=== PATIENT | male | born 1940 | race Caucasian/White ===

== ENCOUNTER 2016-04-23 10:43 | Observation (INO) | payer OTHER ==
[~2016-04-23] VITALS: Ht 170.2 cm; Wt 78.3 kg
[~2016-04-23 10:43] MED LIST: ASPEC81 PO; ATV5 PO; IMTUNK PO; MULT-506 PO; MXRAIN INH; OMEG10007 PO; PRLSR20 PO; TETR250C3 PO; [UNRECOGNIZED DRUG - REMARK] PO
[2016-04-23] MEDS ORDERED: KETOROLAC TROMETHAMINE 30 MG/ML VIAL IV STA (10:56)
[2016-04-23] MEDS ORDERED: ACETAMINOPHEN 500 MG TAB PO STA (10:56)
[2016-04-23] MEDS ORDERED: SODIUM CHLORIDE 0.9% 1000ML 500 ML IV STA (10:56)
[2016-04-23] MEDS ORDERED: DiphenhydrAMINE HCL 50 MG/ML VIAL IV STA (10:56)
[2016-04-23] MEDS ORDERED: PROCHLORPERAZINE 5 MG/ML 2 ML VIAL IV STA (10:56)
[2016-04-23 11:21] LABS: BASO % 0.4 %; BASO ABS # 0.03 K/uL (0-0.2); COMPLETE YES; EOS % 2.9 %; HEMATOCRIT 43.3 % (42-52); IG% 0.5 %; LYMPH % 27.5 %; LYMPH ABS # 2.17 K/uL (1.2-3.4); MEAN CELL VOLUME 87.3 fL (80-100); MEAN CORPUSCULAR HEMOGLOBIN 30.8 pg (25-34); MEAN CORPUSCULAR HGB CONC 35.3 g/dl (32-36); MEAN PLATELET VOLUME 10.3 fL (7.4-10.4); MONO % 4.2 %; NEUT % 64.5 %; PLATELET COUNT 266 K/uL (130-400); RED BLOOD COUNT 4.96 M/uL (4.7-6.1)
[2016-04-23 11:29] LABS: PROTHROMBIN TIME (PATIENT) 11.2 SECONDS (9.0-12.0)
[2016-04-23] MEDS ORDERED: GLC/500 PO (11:35)
[2016-04-23] MEDS ORDERED: LISI20TA3 PO (11:35)
[2016-04-23] MEDS ORDERED: METO25TA3 PO (11:35)
[2016-04-23 11:37] LABS: BUN/CREATININE RATIO 18.7 (10-20); CALCIUM 8.9 mg/dl (8.5-10.1); CREATININE 1.2 mg/dl (0.60-1.40)
[2016-04-23 11:42] LABS: CKMB/CK RATIO 4.3 (0-3.0)
--- NOTE | 2016-04-23 11:56 | DIAGNOSTIC IMAGING REPORT ---
HEAD CT NONCONTRAST CT DOSE: 558.98 mGy.cm HISTORY: Difficulty speaking. Stroke TECHNIQUE: Multiaxial CT images of the head were performed without the use of intravenous contrast. Automated exposure control was utilized for this study. Comparison: None. Findings: The paranasal sinuses and mastoid air cells are clear. The calvarium and skull base are intact. The ventricles and sulci are within normal limits. There is no mass, hematoma, midline shift, or acute infarct. Impression: No acute intracranial abnormality. Electronically signed by: Marcial Soto M.D. 04/23/2016 11:54 AM Dictated Date/Time: 04/23/2016 11:50 AM
[2016-04-23 12:10] VITALS: O2SAT 98; Ht 170.2 cm; Wt 78.3 kg
--- NOTE | 2016-04-23 12:41 | EMERGENCY ROOM VISIT NOTE ---
History Report prepared by Master: Dominique Mayberry Under the Supervision of: Dr. Dima Rayn M.D. First contact with patient: 10:54 Chief Complaint: STROKE SYMPTOMS Stated Complaint: MIGRAINE, UNABLE TO SPEAK History of Present Illness The patient is a 76 year old male who presents to the Emergency Room with complaints of constant stroke-like symptoms since he woke up this morning about 3 hours ago. He has a history of migraine headaches and woke up with a left- sided headache. He took Imitrex and went back to sleep. When he woke up again he was still not feeling well. He still had a headache and was experiencing confusion, weakness, and difficulty speaking. The patient rates his pain as a 2/ 10. He states that this headache feels different than his typical migraine headaches. He is not on any blood thinners. He felt fine last night before going to sleep. Source of History: patient Onset: TRANSCRIPTION Position: other (global) Symptom Intensity: 2/10 Quality: other (stroke-like) Timing: constant Associated Symptoms: + headache, + weakness Note: Pt notes confusion and difficulty speaking. Review of Systems See HPI for pertinent positives & negatives. A total of 10 systems reviewed and were otherwise negative. Past Medical & Surgical Medical Problems: (1) Asthma (2) Diabetes mellitus type 2, controlled, without complications (3) Esophageal reflux (4) Tietze's disease Family History Non-pertinent due to advanced age. Social History Smoking Status: Unknown if Ever Smoked Marital Status: Housing Status: lives with significant other Occupation Status: retired Current/Historical Medications Scheduled Aspirin Enteric Coated (Ecotrin Or Generic *), 81 MG PO DAILY Fish Oil ([place]-3), 1 CAP PO DAILY Lisinopril (Prinivil), 20 MG PO DAILY Lorazepam (Ativan *), 0.5 MG PO Q6HR PRN Metformin Hcl (Glucophage), 500 MG PO BID Multivitamin (Multivitamin), 1 TAB PO DAILY Omeprazole (Prilosec Otc *), 40 MG PO DAILY Sumatriptan Succinate (Imitrex Unknown Dose), 1 TAB PO PRN Miscellaneous Medications Metoprolol Succ (Toprol Xl) (Toprol-Xl), 12.5 MG PO Allergies Coded Allergies: Acetaminophen (Verified Allergy, Unknown, HIVES?, 04/23/16) Oxycodone (Verified Allergy, Unknown, HIVES?, 04/23/16) Penicillins (Verified Allergy, Unknown, 04/23/16) Atropine (Verified Adverse Reaction, Intermediate, PROSTATE SWELLED, ) Physical Exam Vital Signs Date Time Temp Pulse Resp B/P Pulse Ox O2 Delivery O2 Flow Rate FiO2 04/23/16 11:59 137/75 04/23/16 11:51 131/69 04/23/16 11:19 145/70 04/23/16 11:08 74 04/23/16 11:07 97 Room Air 04/23/16 10:55 144/80 04/23/16 10:48 36.4 78 18 153/72 97 Physical Exam CONSTITUTIONAL: The patient is in mild distress. HEENT: No icterus, moist mucous membranes NECK: No meningismus, trachea is midline. CARDIOVASCULAR: Regular rate, normal perfusion RESPIRATORY: Unlabored breathing. Clear to auscultation. GASTROINTESTINAL: Non-tender GENITOURINARY: No flank tenderness MUSCULOSKELETAL: Full range of motion NEUROLOGIC: No acute gross focal deficits. Expressive aphasia. PSYCHIATRIC: Normal affect SKIN: Normal for ethnicity. Medical Decision & Procedures ER Provider Diagnostic Interpretation: Radiology results as stated below per my review and radiologist interpretation. HEAD CT NONCONTRAST CT DOSE: 558.98 mGy.cm HISTORY: Difficulty speaking. Stroke TECHNIQUE: Multiaxial CT images of the head were performed without the use of intravenous contrast. Automated exposure control was utilized for this study. Comparison: None. Findings: The paranasal sinuses and mastoid air cells are clear. The calvarium and skull base are intact. The ventricles and sulci are within normal limits. There is no mass, hematoma, midline shift, or acute infarct. Impression: No acute intracranial abnormality. Electronically signed by: Marcial Soto M.D. 04/23/2016 11:54 AM Dictated Date/Time: 04/23/2016 11:50 AM Laboratory Results 04/23/16 11:04 Red Blood Count 4.96, Mean Corpuscular Volume 87.3, Mean Corpuscular Hemoglobin 30.8, Mean Corpuscular Hemoglobin Concent 35.3, Mean Platelet Volume 10.3, Neutrophils (%) (Auto) 64.5, Lymphocytes (%) (Auto) 27.5, Monocytes (%) (Auto) 4.2, Eosinophils (%) (Auto) 2.9, Basophils (%) (Auto) 0.4, Neutrophils # (Auto) 5.10, Lymphocytes # (Auto) 2.17, Monocytes # (Auto) 0.33, Eosinophils # (Auto) 0.23, Basophils # (Auto) 0.03 04/23/16 11:04 Test 04/23/16 11:04 04/23/16 11:11 04/23/16 11:14 04/23/16 12:30 White Blood Count 7.90 K/uL (4.8-10.8) Red Blood Count 4.96 M/uL (4.7-6.1) Hemoglobin 15.3 g/dL (14.0-18.0) Hematocrit 43.3 % (42-52) Mean Corpuscular Volume 87.3 fL (80-100) Mean Corpuscular Hemoglobin 30.8 pg (25-34) Mean Corpuscular Hemoglobin Concent 35.3 g/dl (32-36) Platelet Count 266 K/uL (130-400) Mean Platelet Volume 10.3 fL (7.4-10.4) Neutrophils (%) (Auto) 64.5 % Lymphocytes (%) (Auto) 27.5 % Monocytes (%) (Auto) 4.2 % Eosinophils (%) (Auto) 2.9 % Basophils (%) (Auto) 0.4 % Neutrophils # (Auto) 5.10 K/uL (1.4-6.5) Lymphocytes # (Auto) 2.17 K/uL (1.2-3.4) Monocytes # (Auto) 0.33 K/uL (0.11-0.59) Eosinophils # (Auto) 0.23 K/uL (0-0.5) Basophils # (Auto) 0.03 K/uL (0-0.2) RDW Standard Deviation 37.6 fL (36.4-46.3) RDW Coefficient of Variation 11.9 % (11.5-14.5) Immature Granulocyte % (Auto) 0.5 % Immature Granulocyte # (Auto) 0.04 K/uL (0.00-0.02) Prothrombin Time 11.2 SECONDS (9.0-12.0) Prothromb Time International Ratio 1.0 (0.9-1.1) Activated Partial Thromboplast Time 25.7 SECONDS (21.0-31.0) Partial Thromboplastin Ratio 1.0 Anion Gap 6.0 mmol/L (3-11) Est Creatinine Clear Calc Drug Dose 48.2 ml/min Estimated GFR () 67.2 Estimated GFR (Non- 58.0 BUN/Creatinine Ratio 18.7 (10-20) Calcium Level 8.9 mg/dl (8.5-10.1) Total Creatine Kinase 37 U/L (39-308) Creatine Kinase MB 1.6 ng/ml (0.5-3.6) Creatine Kinase MB Ratio 4.3 (0-3.0) Troponin I 0.017 ng/ml (0-0.045) Bedside Glucose 182 mg/dl (70-99) Bedside Prothrombin Time INR 1.0 (0.9-1.1) Labs reviewed by ED physician. Medications Administered Medications (Trade) Dose Ordered Sig/Vanessa Route Start Time Stop Time Status Last Admin Dose Admin Prochlorperazine Edisylate (Compazine Inj) 10 mg NOW STAT IV 04/23/16 10:56 04/23/16 10:57 DC 04/23/16 11:17 10 MG Diphenhydramine HCl (Benadryl Inj) 25 mg NOW STAT IV 04/23/16 10:56 04/23/16 10:57 DC 04/23/16 11:18 25 MG Acetaminophen 1000 mg 1,000 mg NOW STAT PO 04/23/16 10:56 04/23/16 10:57 DC 04/23/16 11:18 1,000 MG Sodium Chloride (Nss 1000ml) 500 ml @ 0 mls/hr Q0M STAT IV 04/23/16 10:56 04/23/16 10:57 DC 04/23/16 11:18 999 MLS/HR Ketorolac Tromethamine (Toradol Inj) 15 mg NOW STAT IV 04/23/16 10:56 04/23/16 10:57 DC 04/23/16 11:17 15 MG ECG Indication: altered mental status Rate (beats per minute): 72 Rhythm: sinus rhythm Findings: PVC, other (normal axis) ED Course 1054: Past medical records reviewed. The patient was evaluated in room C10. A complete history and physical examination was performed. 1055: NSS 1000 ml @ 50 mls/hr IV 1056: Toradol 15 mg IV, NSS 500 ml wide open IV, Tylenol tab 1000 mg PO, Benadryl 25 mg IV, Compazine 10 mg IV 1156: I spoke with Alka Mcdaniel PA-C. We discussed the patients results and treatment plan. The patient will be evaluated by the [facility] for further management. 1201: I reassessed the patient at this time. He is resting comfortably. I discussed the results and treatment plan with the patient. I answered all pertaining questions that he had. He expressed understanding and verbalized agreement. Medical Decision Differential diagnoses includes stroke, complex migraine, TIA, tumor. 76-year-old with history of migraines presents into the emergency room with atypical headache as well as expressive aphasia this morning after going to sleep in his normal state of health last night. He took his Imitrex but did not experience any relief. On my examination at 10:55 AM patient has no focal deficits but does have a mild expressive aphasia. Stroke protocol initiated patient really brought to CT scan. I personally read CT results which were negative for bleed and admission arranged with hospital service for possibility of TIA. Fortunately, patient's expressive aphasia had resolved completely on my reexamination after administration of Benadryl, Compazine and Toradol. He and are in agreement with plan for observation at this time no further concerns. Consults Time Called: 1154 Consulting Physician: Alka Mcdaniel PA-C Returned Call: 1156 I spoke with Alka Mcdaniel PA-C. We discussed the patients results and treatment plan. The patient will be evaluated by the [facility] for further management. Impression Primary Impression: Expressive aphasia Additional Impression: complex migraine vs. TIA Scribe Attestation The scribe's documentation has been prepared under my direction and personally reviewed by me in its entirety. I confirm that the note above accurately reflects all work, treatment, procedures, and medical decision making performed by me. Departure Information Dispostion Being Evaluated By Hospitalist Referrals London Odell M.D. (PCP) Patient Instructions A Signature Page, My [facility]
[2016-04-23] MEDS ORDERED: NITROGLYCERIN 0.4 MG SL PER TAB CHARGE SL PRN (13:00)
[2016-04-23] MEDS ORDERED: DEXTROSE 50% 50 ML SYR IV PRN (13:00)
[2016-04-23] MEDS ORDERED: GLUCAGON FOR INJ 1 MG VIAL SQ PRN (13:00)
[2016-04-23] MEDS ORDERED: PHARMACIST DISCHARGE MED REC CONSULT PRN (13:00)
[2016-04-23] MEDS: SODIUM CHLORIDE 0.9% 1000ML 1,000 ML IV SCH (13:00)
[2016-04-23] MEDS ORDERED: ONDANSETRON INJ 2 MG/ML 2 ML VIAL IV PRN (13:00)
[2016-04-23] MEDS ORDERED: GLUCOSE 40% GEL 15 GM TUBE PO PRN (13:00)
[2016-04-23] MEDS ORDERED: GLUCOSE 10 TABS/TUBE PO PRN (13:00)
[2016-04-23 13:01] LABS: BENZODIAZEPINE, URINE NEG (NEG); COCAINE,URINE NEG (NEG); PHENCYCLIDINE, URINE NEG (NEG)
[2016-04-23] MEDS ORDERED: CINN1CAP2 PO (13:06)
[2016-04-23] MEDS ORDERED: SIMV10TA5 PO (13:06)
[2016-04-23] MEDS ORDERED: FLVHFA110 INH (13:06)
[2016-04-23] MEDS ORDERED: SUMA50TA15 PO (13:06)
[2016-04-23] MEDS ORDERED: LISI20TA55 PO (13:06)
[2016-04-23] MEDS ORDERED: LORAZEPAM 0.5 MG TAB PO PRN (13:15)
[2016-04-23] MEDS ORDERED: METOPROLOL SUCC 25MG EXT REL TAB PO PRN (13:15)
[2016-04-23] MEDS ORDERED: FLUTICASONE HFA 110MCG INHALER INH PRN (13:15)
[2016-04-23] MEDS ORDERED: SUMATRIPTAN SUCCINATE 50 MG TAB PO PRN (13:15)
[2016-04-23] MEDS ORDERED: GADAVIST IV PRN (13:45)
[2016-04-23 14:00] VITALS: O2SAT 99
--- NOTE | 2016-04-23 14:52 | DIAGNOSTIC IMAGING REPORT ---
Brain MRA HISTORY: Expressive aphasia. Stroke - Attention to [place] TECHNIQUE: 3-D [id number] MRA of the brain was performed without contrast. COMPARISON STUDY: None. FINDINGS: Visualized intracranial internal carotid arteries, distal vertebral arteries, and basilar artery are widely patent. There is no significant stenosis, occlusion, or aneurysm seen within the bilateral ACAs, MCAs, or efficiency miner blasting. IMPRESSION: No significant stenosis, occlusion, or aneurysm within the [place]. Electronically signed by: Marcial Soto M.D. 04/23/2016 2:51 PM Dictated Date/Time: 04/23/2016 2:47 PM
[2016-04-23] MEDS ORDERED: IV FLUIDS COMPLETED PRN (15:00)
--- NOTE | 2016-04-23 15:07 | DIAGNOSTIC IMAGING REPORT ---
BILATERAL CAROTID DOPPLER STUDY HISTORY: Expressive aphasia. r/o stenosis COMPARISON: None. TECHNIQUE: Real-time, grayscale, and color Doppler sonography of the carotid arteries was performed. Imaging reviewed in the transverse and longitudinal planes. All measurements were calculated based on NASCET criteria. FINDINGS: Antegrade flow is seen in the bilateral vertebral arteries. The brachial pressures are hemodynamically similar. Mild calcified plaque within the bilateral carotid bifurcations. The peak systolic velocity within the right ICA is 90 cm/s.. The right systolic ratio is 1.0. The peak systolic velocity within the left ICA is 62 cm/s. The left systolic ratio is 0.5. IMPRESSION: No hemodynamically significant stenosis seen within the carotid arteries. Electronically signed by: Marcial Soto M.D. 04/23/2016 3:05 PM Dictated Date/Time: 04/23/2016 3:03 PM
--- NOTE | 2016-04-23 15:12 | DIAGNOSTIC IMAGING REPORT ---
Brain MRI WITH AND WITHOUT CONTRAST HISTORY: expressive aphasia TECHNIQUE: Multiplanar multisequence MRI of the brain was performed both before and after the intravenous administration of contrast. COMPARISON STUDY: Head CT 04/23/2016. FINDINGS: There are no areas of restricted diffusion to suggest acute infarction. The midline structures are intact. Minimal mucosal thickening within the paranasal sinuses and a few partially opacified mastoid air cells. A few scattered punctate foci of T2 hyperintensity seen within the periventricular and subcortical white matter. These are nonspecific but favor mild microvascular ischemic change. The ventricles and sulci are within normal limits for age. There is no mass, hematoma, midline shift. The major vascular flow-voids at the skull base are well maintained. Postcontrast sequences show no areas of abnormal enhancement. IMPRESSION: No acute intracranial abnormality. Electronically signed by: Marcial Soto M.D. 04/23/2016 3:11 PM Dictated Date/Time: 04/23/2016 3:05 PM
[2016-04-23] MEDS: INSULIN ASPART 100 UNITS/ML 3 ML PEN SC SCH ×2 (17:08→20:57)
[2016-04-23 17:20] VITALS: BP 156/68; PULSE 64; TEMP 36.4; O2SAT 98
--- NOTE | 2016-04-23 19:38 | History and Physical ---
History & Physical Date & Time of Service: Apr 23, 2016 at 16:47 Chief Complaint: Stroke-Like Symptoms Primary Care Physician: London Odell M.D. History of Present Illness Source: patient This is a 76 y/o male with PMHx of DM 2, Migraines, HTN, Dyslipidemia and other problems as outlined below who presents to the ED c/o difficulty speaking that began this morning. Pt reports that he woke up around 0700 feeling his normal self. Around 0800 he developed a L sided migraine with aura and took an Imitrex. He then developed confusion and difficulty "finding the right words". Pt has +FmHx of strokes but he denies any personal history. Pt denies fever/ chills, visual changes, diaphoresis, chest pain, palpitations, SOB, wheezing, abd pain, N/V, bowel or bladder issues, LE edema ,calf pain, lightheadedness/ dizziness, unilateral weakness, difficulty ambulating, difficulty swallowing or facial droop. In the ED, vitals are stable. Head CT is negative. Pt has some persistent expressive aphasia at time however he feels that is has improved from this morning. He will be admitted for further evaluation and treatment. Past Medical/Surgical History Medical Problems: (1) Asthma Status: Chronic (2) Diabetes mellitus type 2, controlled, without complications Status: Chronic (3) Dyslipidemia Status: Chronic (4) Esophageal reflux Status: Chronic (5) GERD (gastroesophageal reflux disease) Status: Chronic (6) HTN (hypertension) Status: Chronic (7) Migraines Status: Chronic (8) Tietze's disease Status: Chronic Surgical Problems: (1) H/O arthroscopy of left knee Status: Resolved (2) History of partial colectomy Status: Resolved Social History Smoking Status: Never Smoker Alcohol Use: none Drug Use: none Marital Status: Housing status: lives with family Occupational Status: retired Immunizations History of Influenza Vaccine: Yes History of Tetanus Vaccine?: Yes History of Pneumococcal: Yes History of Hepatitis B Vaccine: No Multi-Drug Resistant Organisms History of MDRO: No Allergies Coded Allergies: Acetaminophen (Verified Allergy, Unknown, HIVES?, 04/23/16) Oxycodone (Verified Allergy, Unknown, HIVES?, 04/23/16) Penicillins (Verified Allergy, Unknown, 04/23/16) Atropine (Verified Adverse Reaction, Intermediate, PROSTATE SWELLED, ) Home Medications Scheduled Aspirin Enteric Coated (Ecotrin Or Generic *), 81 MG PO DAILY Cinnamon (Cinnamon), 500 MG PO DAILY Fish Oil ([place]-3), 1 CAP PO DAILY Lisinopril/Hctz (Prinzide 20-25MG), 1 TAB PO DAILY Lorazepam (Ativan *), 0.5 MG PO Q6HR PRN Metformin Hcl (Glucophage), 500 MG PO BID Multivitamin (Multivitamin), 1 TAB PO DAILY Omeprazole (Prilosec Otc *), 40 MG PO DAILY Simvastatin (Zocor), 10 MG PO QPM Scheduled PRN Fluticasone Propionate (Flovent Hfa), 2 PUFFS INH BID PRN for Wheezing Sumatriptan Succinate (Imitrex), 50 MG PO PRN PRN for Migraine Miscellaneous Medications Metoprolol Succ (Toprol Xl) (Toprol-Xl), 12.5 MG PO Review of Systems Constitutional: No chills, No fatigue, No fever, No sweats, No weakness Eyes: No diplopia, No worsening of vision ENT: + hearing loss (hearing aids) Respiratory: No cough, No shortness of breath Cardiovascular: No chest pain, No claudication, No edema, No palpitations Abdomen: No GI bleeding, No constipation, No diarrhea, No nausea, No pain, No vomiting Musculoskeletal: No calf pain, No swelling Genitourinary - Male: No dysuria Neurologic: + problem reported (headache and expressive aphasia), No weakness Psychiatric: No depression symptoms Endocrine: No fatigue Hematologic / Lymphatic: No abnormal bleeding/bruising Integumentary: No new/changing skin lesions Physical Exam Vital Signs Date Time Temp Pulse Resp B/P Pulse Ox O2 Delivery O2 Flow Rate FiO2 04/23/16 14:00 67 20 165/78 99 Room Air 04/23/16 12:52 70 20 137/75 98 Room Air 04/23/16 12:10 98 Room Air 04/23/16 11:59 137/75 04/23/16 11:51 131/69 04/23/16 11:19 145/70 04/23/16 11:08 74 04/23/16 11:07 97 Room Air 04/23/16 10:55 144/80 04/23/16 10:48 36.4 78 18 153/72 97 General Appearance: WD/WN, no apparent distress, + pertinent finding (Pt is sitting up in bed with and daughter at bedside) Head: normocephalic, atraumatic Eyes: normal inspection, PERRL, EOMI ENT: hearing grossly normal Neck: supple Respiratory/Chest: chest non-tender, lungs clear, normal breath sounds, no respiratory distress Cardiovascular: regular rate, rhythm, no edema, no murmur Abdomen/GI: normal bowel sounds, non tender, soft Back: normal inspection Extremities/Musculoskelatal: normal inspection, no calf tenderness, no pedal edema Neurologic/Psych: battery hand II-XII nml as tested, no motor/sensory deficits, alert, normal mood/affect, oriented x 3 Skin: normal color, warm/dry Diagnostics Laboratory Results Results Past 24 Hours Test 04/23/16 11:04 04/23/16 11:11 04/23/16 11:14 04/23/16 12:30 Range/Units White Blood Count 7.90 4.8-10.8 K/uL Red Blood Count 4.96 4.7-6.1 M/uL Hemoglobin 15.3 14.0-18.0 g/dL Hematocrit 43.3 42-52 % Mean Corpuscular Volume 87.3 80-100 fL Mean Corpuscular Hemoglobin 30.8 25-34 pg Mean Corpuscular Hemoglobin Concent 35.3 32-36 g/dl Platelet Count 266 130-400 K/uL Mean Platelet Volume 10.3 7.4-10.4 fL Neutrophils (%) (Auto) 64.5 % Lymphocytes (%) (Auto) 27.5 % Monocytes (%) (Auto) 4.2 % Eosinophils (%) (Auto) 2.9 % Basophils (%) (Auto) 0.4 % Neutrophils # (Auto) 5.10 1.4-6.5 K/uL Lymphocytes # (Auto) 2.17 1.2-3.4 K/uL Monocytes # (Auto) 0.33 0.11-0.59 K/uL Eosinophils # (Auto) 0.23 0-0.5 K/uL Basophils # (Auto) 0.03 0-0.2 K/uL RDW Standard Deviation 37.6 36.4-46.3 fL RDW Coefficient of Variation 11.9 11.5-14.5 % Immature Granulocyte % (Auto) 0.5 % Immature Granulocyte # (Auto) 0.04 0.00-0.02 K/uL Prothrombin Time 11.2 9.0-12.0 SECONDS Prothromb Time International Ratio 1.0 0.9-1.1 Activated Partial Thromboplast Time 25.7 21.0-31.0 SECONDS Partial Thromboplastin Ratio 1.0 Sodium Level 138 136-145 mmol/L Potassium Level 4.0 3.5-5.1 mmol/L Chloride Level 101 98-107 mmol/L Carbon Dioxide Level 31 21-32 mmol/L Anion Gap 6.0 3-11 mmol/L Blood Urea Nitrogen 22 7-18 mg/dl Creatinine 1.20 0.60-1.40 mg/dl Est Creatinine Clear Calc Drug Dose 48.2 ml/min Estimated GFR () 67.2 Estimated GFR (Non- 58.0 BUN/Creatinine Ratio 18.7 10-20 Random Glucose 181 70-99 mg/dl Calcium Level 8.9 8.5-10.1 mg/dl Total Creatine Kinase 37 39-308 U/L Creatine Kinase MB 1.6 0.5-3.6 ng/ml Creatine Kinase MB Ratio 4.3 0-3.0 Troponin I 0.017 0-0.045 ng/ml Bedside Glucose 182 70-99 mg/dl Bedside Prothrombin Time INR 1.0 0.9-1.1 Urine Opiates Screen NEG NEG Urine Methadone, Qualitative NEG NEG Urine Barbiturates NEG NEG Urine Phencyclidine (PCP) Level NEG NEG Ur Amphetamine/Methamphetamine NEG NEG MDMA (Ecstasy) Screen NEG NEG Urine Benzodiazepines Screen NEG NEG Urine Cocaine Metabolite NEG NEG Urine Marijuana (THC) NEG NEG Diagnostic Radiology CT HEAD IMPRESSION: No acute intracranial abnormality. EKG EKG: sinus rhythm at 72 bpm with PVCs and PACs; PACs are new finding when compared to EG from 06/03/2005 Impression Assessment and Plan EXPRESSIVE APHASIA R/O CVA pt presents with expressive aphasia and headache -admit observation to telemetry -RFs include +FmHx, DM2, HTN, Dyslipidemia -head CT is negative; will obtain brain MRI, brain MRA for further evaluation -check carotid US to r/o stenosis -obtain echo to r/o any cardiac abnormalities -neuro checks q4h -fasting lipids in AM -cont ASA and statin -PT/OT -consult speech to evaluate swallowing -NPO until speech eval is complete -consult neuro, Dr. Rivers-pending input -allow for permissive HTN in setting of possible CVA -continue to monitor DM 2 -last A1C 7.0; repeat in AM -hold metformin -start ISS -monitor BSG ACHS H/O MIGRAINES -cont Imitrex PRN GERD -cont PPI HTN -BP slightly elevated -cont metoprolol and lisinopril-HCTZ -monitor DYSLIPIDEMIA -cont statin and fish oil DVT PROPHYLAXIS -subq Lovenox CODE STATUS -FULL CODE per discussion with patient and family upon admission DISPO Pt was seen in collaboration with Dr. Gooden. Please see his addendum for further details. Thanks! Agree with above H and P. Briefly 76M with PMH of migraines presents with difficulty finding words. Patient says around 8am developed migraine with aura and took Imitrex but later was somewhat confused and had difficulty finding words and speaking in sentences. By the time he came to ER symptoms almost resolved. CT head negative. Currently resting comfortably. Hemodynamics stable. talking fine. No swallow problems. No weakness. No chest pain or sob or cough. No fevers. a/p Ge not in distress Cvs s1 and s2 heard no murmurs Rs cta b/l no added sounds Abd benign [employer] Technician non focal speech clear a/p Expressive aphasia resolved Ct head negative MRI/MRA head negative mostly migrainous monitor in tele neurochecks Await neuro input DM' ISS will monitor Advanced Directives Existing Advance Directive: Yes Existing Living Will: Yes Existing Power of Salad [employer] Clerk: Yes VTE Prophylaxis VTE Risk Assessment Done? Y/N: Yes Risk Level: Moderate
[2016-04-23 19:52] VITALS: BP 115/71; PULSE 65; TEMP 36.6; O2SAT 94
[2016-04-23] MEDS ORDERED: ENOXAPARIN 40 MG/0.4 ML SYR SC SCH (21:00)
[2016-04-23] MEDS ORDERED: SIMVASTATIN 10 MG TAB PO SCH (21:00)
[2016-04-23 23:55] VITALS: BP 102/58; PULSE 64; TEMP 36.6; O2SAT 96
[2016-04-24 04:36] VITALS: BP 124/67; PULSE 76; TEMP 36.4; O2SAT 98
[2016-04-24 05:41] LABS: BASO % 0.4 %; BASO ABS # 0.04 K/uL (0-0.2); COMPLETE YES; HEMATOCRIT 41.1 % (42-52); IG% 0.3 %; LYMPH % 21.3 %; LYMPH ABS # 2.26 K/uL (1.2-3.4); MEAN CELL VOLUME 88.2 fL (80-100); MEAN CORPUSCULAR HEMOGLOBIN 29.6 pg (25-34); MEAN CORPUSCULAR HGB CONC 33.6 g/dl (32-36); MEAN PLATELET VOLUME 10.4 fL (7.4-10.4); MONO % 5.9 %; NEUT % 66.1 %; PLATELET COUNT 240 K/uL (130-400); RED BLOOD COUNT 4.66 M/uL (4.7-6.1); WHITE BLOOD COUNT 10.59 K/uL (4.8-10.8)
[2016-04-24 06:12] LABS: BUN/CREATININE RATIO 18.8 (10-20); CALCIUM 8.4 mg/dl (8.5-10.1); CREATININE 1.1 mg/dl (0.60-1.40); POTASSIUM 4.5 mmol/L (3.5-5.1)
[2016-04-24 06:15] LABS: CHOLESTEROL/HDL RATIO 2.4
[2016-04-24 06:29] LABS: ESTIMATED AVERAGE GLUCOSE 154 mg/dl; HA1C FLAG Normal (Normal)
[2016-04-24 07:30] VITALS: BP 132/74; PULSE 68; TEMP 36.5; O2SAT 97
[2016-04-24] MEDS ORDERED: PERFLUTREN LIPID MICROSPHERE (DEFINITY) IV ONE (08:41)
[2016-04-24] MEDS: SODIUM CHLORIDE 0.9% 1000ML 1,000 ML IV SCH (08:58)
[2016-04-24] MEDS ORDERED: PANTOprazole SOD 40 MG TAB PO SCH (09:00)
[2016-04-24] MEDS ORDERED: NON-FORMULARY MEDICATION (Cinnamon 500 MG) PO SCH (09:00)
[2016-04-24] MEDS ORDERED: ASPIRIN 81 MG ECTAB PO SCH (09:00)
[2016-04-24] MEDS ORDERED: MULTIVITAMIN TAB PO SCH (09:00)
[2016-04-24] MEDS ORDERED: OMEGA-3 (PURIFIED FISH OIL) 1 GM CAP PO SCH (09:00)
[2016-04-24] MEDS ORDERED: LISINOPRIL/HCTZ 20/25MG TAB PO SCH (09:00)
[2016-04-24] MEDS: INSULIN ASPART 100 UNITS/ML 3 ML PEN SC SCH ×3 (09:03→17:29)
--- NOTE | 2016-04-24 10:31 | ECHOCARDIOGRAM REPORT ---
*NOTICE TO RECEIVING [employer] [facility] This information is strictly Confidential and protected under [place] law. [place] law prohibits you from making any further disclosure of this information unless further disclosure is expressly permitted by the written consent of the person to whom it pertains or is authorized by law. A general authorization for the release of medical or other information is not sufficient for this purpose. Hospital accepts no responsibility if the information is made available to any other person, INCLUDING THE PATIENT. Interpretation Summary * Name: ANNA NELSON Study Date: 04/24/2016 07:41 AM BP: 132/74 mmHg * Patient Location: .[facility]\S\N287\S\2 HR: 68 * : 1940 (M/d/yyyy) Gender: Male Height: 67 in * Age: 76 yrs Ethnicity: [place] Weight: 173 lb * Ordering Physician: Alka Alvarado * Referring Physician: Self, Referred * Performed By: Kendy Rodriguez RDCS * * Reason For Study: R/O CVA * BSA: 1.9 m2 * History: R/O CVA * No cardiac source of emboli noted. * -- Conclusions -- * No cardiac source of emboli noted. * The left ventricle is normal in size. * There is moderate concentric left ventricular hypertrophy. * Ejection Fraction = 55-60%. * The right ventricular systolic function is normal. * The left atrial size is normal. * Right atrial size is normal. * No significant valvular pathology. Procedure Details * A contrast injection of Definity was performed to improve assessment of LV function. * Contrast was injected into an intravenous site in the right arm. * One vial of Definity ultrasound contrast was diluted in normal saline to a total volume of 10 ml. A total of '2' ml of solution was administered during imaging. * Lot # [id number] of Definity utilized for procedure. * Expiration date SEP 30. * The attending nurse who injected the contrast agent was FEROZ ARAIZA RN. * A saline contrast injection was performed to assess for cardiac shunting. * The injection was performed through an intravenous line in the right arm. * The attending nurse who injected the saline contrast was FEROZ ARAIZA RN. * A total of 20 cc of agitated saline was given. Left Ventricle * The left ventricle is normal in size. * There is moderate concentric left ventricular hypertrophy. * Ejection Fraction = 55-60%. * The left ventricular wall motion is normal. Right Ventricle * The right ventricle is grossly normal size. * The right ventricular systolic function is normal. Atria * The left atrial size is normal. * Right atrial size is normal. * The interatrial septum is intact with no evidence for an atrial septal defect. * Injection of contrast documented no interatrial shunt. Mitral Valve * The mitral valve anatomy is normal. * Significant mitral regurgitation is absent. Tricuspid Valve * The tricuspid valve is not well visualized, but is grossly normal. * Significant tricuspid regurgitation is absent. Aortic Valve * The aortic valve is normal in structure and function. Pulmonic Valve * The pulmonic valve is not well visualized. * There is no significant pulmonary regurgitation. Great Vessels * The aortic root and proximal ascending aorta are normal sized. Pericardium/Pleural * There is no pericardial effusion. MMode 2D Measurements and Calculations IVSd 1.2 cm IVSs 1.7 cm LVIDd 3.6 cm LVIDs 2.4 cm LVPWd 1.3 cm LVPWs 1.6 cm IVS/LVPW 0.90 FS 32.9 % EDV(Teich) 55.3 ml ESV(Teich) 20.9 ml EF(Teich) 62.3 % EDV(cubed) 47.6 ml ESV(cubed) 14.4 ml EF(cubed) 69.8 % % IVS thick 43.3 % % LVPW thick 19.3 % LV mass(C)d 157.3 grams LV mass(C)dI 82.7 grams/m\S\2 LV mass(C)s 148.5 grams LV mass(C)sI 78.1 grams/m\S\2 SV(Teich) 34.5 ml SI(Teich) 18.1 ml/m\S\2 SV(cubed) 33.2 ml SI(cubed) 17.5 ml/m\S\2 Ao root diam 3.1 cm Ao root area 7.7 cm\S\2 LA dimension 3.4 cm LA/Ao 1.1 LVAd ap4 23.0 cm\S\2 LVLd ap4 7.8 cm EDV(MOD-sp4) 57.3 ml EDV(sp4-el) 58.0 ml LVAs ap4 13.6 cm\S\2 LVLs ap4 7.1 cm ESV(MOD-sp4) 22.6 ml ESV(sp4-el) 22.3 ml EF(MOD-sp4) 60.6 % EF(sp4-el) 61.5 % LVAd ap2 23.1 cm\S\2 LVLd ap2 7.3 cm EDV(MOD-sp2) 58.3 ml EDV(sp2-el) 61.9 ml LVAs ap2 15.2 cm\S\2 LVLs ap2 7.0 cm ESV(MOD-sp2) 27.1 ml ESV(sp2-el) 28.1 ml EF(MOD-sp2) 53.5 % EF(sp2-el) 54.6 % LVLd %diff -5.64 % EDV(MOD-bp) 56.1 ml LVLs %diff -1.60 % ESV(MOD-bp) 24.4 ml EF(MOD-bp) 56.5 % SV(MOD-sp4) 34.7 ml SI(MOD-sp4) 18.2 ml/m\S\2 SV(MOD-sp2) 31.2 ml SI(MOD-sp2) 16.4 ml/m\S\2 SV(MOD-bp) 31.7 ml SI(MOD-bp) 16.7 ml/m\S\2 SV(sp4-el) 35.7 ml SI(sp4-el) 18.8 ml/m\S\2 SV(sp2-el) 33.8 ml SI(sp2-el) 17.8 ml/m\S\2 Doppler Measurements and Calculations MV E max emil 71.3 cm/sec MV A max emil 60.6 cm/sec MV E/A 1.2 MV dec time 0.19 sec Ao V2 max 145.5 cm/sec Ao max PG 8.5 mmHg Ao max PG (full) 4.6 mmHg LV V1 max PG 3.9 mmHg LV V1 max 98.5 cm/sec
[2016-04-24 11:39] VITALS: BP 99/54; PULSE 65; TEMP 36.7; O2SAT 95
--- NOTE | 2016-04-24 13:55 | Neurology Consultation ---
Neurology Consultation Date of Consultation: Apr 24, 2016. Attending Physician: Thad Gooden MD Primary Care Physician: London Odell M.D. Reason for Consultation: r/o CVA History of Present Illness Source: patient Alcon is a 76 y/o male with PMH which includes: DM 2, Migraines, HTN, Dyslipidemia. He presented to ED after he had some difficulty speaking around 8: 30 am. Shortly prior he developed a L sided migraine with aura and took an Imitrex. He then developed confusion and difficulty "finding the right words". There is a family history of strokes but he denies any personal history. Denies fever/chills, visual changes, diaphoresis, chest pain, palpitations, SOB , wheezing, abdominal pain, N/V, bowel or bladder issues, lightheadedness/ dizziness, unilateral weakness, difficulty ambulating, difficulty swallowing or facial droop. In the ED he was still having some expressive aphasia and still had some migraine but no N, V. This was different than his normal migraine symptoms he does not usually have speech problems. He is currently still having a low grade headache Past Medical/Surgical History Medical Problems: (1) Expressive aphasia Status: Acute Social History Alcohol Use: none Drug Use: none Marital Status: Housing Status: lives with significant other Occupation Status: retired Allergies Coded Allergies: Acetaminophen (Verified Allergy, Unknown, HIVES?, 04/23/16) Oxycodone (Verified Allergy, Unknown, HIVES?, 04/23/16) Penicillins (Verified Allergy, Unknown, 04/23/16) Atropine (Verified Adverse Reaction, Intermediate, PROSTATE SWELLED, ) Current Inpatient Medications Current Inpatient Medications Medications (Trade) Dose Ordered Sig/Vanessa Route Start Time Stop Time Status Last Admin Dose Admin Sodium Chloride (Nss 1000ml) 1,000 ml @ 50 mls/hr Q20H IV 04/23/16 10:55 05/23/16 10:54 04/24/16 08:58 50 MLS/HR Miscellaneous Information (Pharmacist Discharge Med Rec Consult) 1 ea UD PRN N/A 04/23/16 13:00 05/23/16 12:59 Enoxaparin Sodium (Lovenox Inj) 40 mg QPM SC 04/23/16 21:00 2/7/17 20:59 Ondansetron HCl (Zofran Inj) 4 mg Q6H PRN IV 04/23/16 13:00 05/23/16 12:59 Nitroglycerin (Nitrostat Tab) 0.4 mg UD PRN SL 04/23/16 13:00 05/23/16 12:59 Insulin Aspart (novoLOG ASPART) SLIDING SCALE If C... ACHS SC 04/23/16 16:30 05/23/16 16:29 04/24/16 12:15 3 UNITS Glucose (Glucose 40% Gel) 15-30 GRAMS 15 GRAMS... UD PRN PO 04/23/16 13:00 05/23/16 12:59 Glucose (Glucose Chew Tab) 4-8 Tablets 4 Tabl... UD PRN PO 04/23/16 13:00 05/23/16 12:59 Dextrose (Dextrose 50% 50ML Syringe) 25-50ML OF 50% DW IV FOR... UD PRN IV 04/23/16 13:00 05/23/16 12:59 Glucagon (Glucagon Inj) 1 mg UD PRN SQ 04/23/16 13:00 05/23/16 12:59 Aspirin (Ecotrin Tab) 81 mg DAILY PO 04/24/16 09:00 05/24/16 08:59 04/24/16 08:58 81 MG Fish Oil ([place]-3 (Purified Fish Oil) Cap) 1 gm DAILY PO 04/24/16 09:00 05/24/16 08:59 04/24/16 08:58 1 GM Fluticasone Propionate (Flovent Hfa 110MCG Inhaler) 2 puffs BID PRN INH 04/23/16 13:15 05/23/16 13:14 HCTZ/Lisinopril (Prinzide 20-25MG Tab) 1 tab DAILY PO 04/24/16 09:00 05/24/16 08:59 04/24/16 08:58 1 TAB Lorazepam (Ativan Tab) 0.5 mg TID PRN PO 04/23/16 13:15 05/23/16 13:14 Metoprolol Succinate (Toprol Xl Tab) 12.5 mg DAILY PRN PO 04/23/16 13:15 05/23/16 13:14 Multivitamins (Multivitamin Tab) 1 tab DAILY PO 04/24/16 09:00 05/24/16 08:59 04/24/16 08:58 1 TAB Simvastatin (Zocor Tab) 10 mg QPM PO 04/23/16 21:00 05/23/16 20:59 04/23/16 20:31 10 MG Sumatriptan Succinate (Imitrex Tab) 50 mg DAILY PRN PO 04/23/16 13:15 05/23/16 13:14 Pantoprazole Sodium (Protonix Tab) 40 mg DAILY PO 04/24/16 09:00 05/24/16 08:59 04/24/16 08:58 40 MG Gadobutrol (Gadavist) 8 mmol UD PRN IV 04/23/16 13:45 04/27/16 13:44 Miscellaneous (Iv Fluids Completed) 1 ea PRN PRN N/A 04/23/16 15:00 04/23/17 14:59 Physical Exam Vital Signs (Past 24 Hrs): Date Time Temp Pulse Resp B/P Pulse Ox O2 Delivery O2 Flow Rate FiO2 04/24/16 11:50 Room Air 04/24/16 11:39 36.7 65 18 99/54 95 Room Air 04/24/16 07:45 Room Air 04/24/16 07:30 36.5 68 17 132/74 97 Room Air 04/24/16 04:36 36.4 76 20 124/67 98 Room Air 04/24/16 04:00 Room Air 04/24/16 00:00 Room Air 04/23/16 23:55 36.6 64 18 102/58 96 Room Air 04/23/16 21:34 Room Air 04/23/16 19:52 36.6 65 18 115/71 94 Room Air 04/23/16 17:20 36.4 64 18 156/68 98 04/23/16 17:00 Room Air 04/23/16 14:00 67 20 165/78 99 Room Air Physical Exam: Constitutional: appearance nourished, healthy and normal Ears, Nose, Mouth and Throat: mucous membranes moist, no injection and skin normal, eyes normal Cardiovascular: normal S-1 and S-2 and regular rate and rhythm Respiratory: clear to auscultation (CTA) and no rales, rhonchi or wheeze Musculoskeletal: no peripheral edema Skin: no stigmata of neurocutaneous disease noted and normal and intact Eyes: extraocular muscles intact (EOMI) and pupils equal, round and reactive to light (PERRL), good vascular pulsations, disc flat NEUROLOGIC EXAMINATION: Mental status: Alert and interactive Oriented to full date and location Oriented to person Speech fluent with no evidence of aphasia Cranial Nerves smile symmetric, tongue midline Reflexes: Deep tendon reflexes were symmetrical and graded 2/5. Plantar responses were flexor. Sensory: no sensory deficits, with vibration or cool touch Coordination: Romberg absent Gait/Stance: Posture normal. Motor: Negative for pronator drift of out stretched arms with eyes closed. 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 hip flex ext plantar flex ext 5/5 bilaterally Laboratory Results Past 24 Hours: 04/24/16 05:18 Red Blood Count 4.66, Mean Corpuscular Volume 88.2, Mean Corpuscular Hemoglobin 29.6, Mean Corpuscular Hemoglobin Concent 33.6, Mean Platelet Volume 10.4, Neutrophils (%) (Auto) 66.1, Lymphocytes (%) (Auto) 21.3, Monocytes (%) (Auto) 5.9, Eosinophils (%) (Auto) 6.0, Basophils (%) (Auto) 0.4, Neutrophils # (Auto) 7.00, Lymphocytes # (Auto) 2.26, Monocytes # (Auto) 0.62, Eosinophils # (Auto) 0.64, Basophils # (Auto) 0.04 04/24/16 05:18 Test 04/24/16 05:18 04/24/16 11:33 White Blood Count 10.59 K/uL (4.8-10.8) Red Blood Count 4.66 M/uL (4.7-6.1) Hemoglobin 13.8 g/dL (14.0-18.0) Hematocrit 41.1 % (42-52) Mean Corpuscular Volume 88.2 fL (80-100) Mean Corpuscular Hemoglobin 29.6 pg (25-34) Mean Corpuscular Hemoglobin Concent 33.6 g/dl (32-36) Platelet Count 240 K/uL (130-400) Mean Platelet Volume 10.4 fL (7.4-10.4) Neutrophils (%) (Auto) 66.1 % Lymphocytes (%) (Auto) 21.3 % Monocytes (%) (Auto) 5.9 % Eosinophils (%) (Auto) 6.0 % Basophils (%) (Auto) 0.4 % Neutrophils # (Auto) 7.00 K/uL (1.4-6.5) Lymphocytes # (Auto) 2.26 K/uL (1.2-3.4) Monocytes # (Auto) 0.62 K/uL (0.11-0.59) Eosinophils # (Auto) 0.64 K/uL (0-0.5) Basophils # (Auto) 0.04 K/uL (0-0.2) RDW Standard Deviation 38.1 fL (36.4-46.3) RDW Coefficient of Variation 12.0 % (11.5-14.5) Immature Granulocyte % (Auto) 0.3 % Immature Granulocyte # (Auto) 0.03 K/uL (0.00-0.02) Anion Gap 7.0 mmol/L (3-11) Est Creatinine Clear Calc Drug Dose 52.6 ml/min Estimated GFR () 74.7 Estimated GFR (Non- 64.4 BUN/Creatinine Ratio 18.8 (10-20) Calcium Level 8.4 mg/dl (8.5-10.1) Triglycerides Level 97 mg/dl (0-150) Cholesterol Level 129 mg/dl (0-200) HDL Cholesterol 53 mg/dl LDL Cholesterol, Calculated 57 mg/dl VLDL Cholesterol, Calculated 19 mg/dl Cholesterol/HDL Ratio 2.4 Bedside Glucose 125 mg/dl (70-99) Imaging carotid doppler- No hemodynamically significant stenosis seen within the carotid arteries. MRA brain- No significant stenosis, occlusion, or aneurysm within the [place]. MRI brain with and without- FINDINGS: There are no areas of restricted diffusion to suggest acute infarction. The midline structures are intact. Minimal mucosal thickening within the paranasal sinuses and a few partially opacified mastoid air cells. A few scattered punctate foci of T2 hyperintensity seen within the periventricular and subcortical white matter. These are nonspecific but favor mild microvascular ischemic change. The ventricles and sulci are within normal limits for age. There is no mass, hematoma, midline shift. The major vascular flow-voids at the skull base are well maintained. Postcontrast sequences show no areas of abnormal enhancement. CT head- no acute abnormalities TTE- No cardiac source of emboli noted. * The left ventricle is normal in size. * There is moderate concentric left ventricular hypertrophy. * Ejection Fraction = 55-60%. * The right ventricular systolic function is normal. * The left atrial size is normal. * Right atrial size is normal. no ASD Impression 76 year old male with history of migraines: speech difficulties last approx 2 hours Plan 1. imaging negative for any acute findings 2. no previous history of CVA but does have some family history. 3. may be complex migraine variant 4. already taking aspirin daily 5. no stenosis on carotid doppler or evidence of shunting on TTE 6. imitrex prn 7. if becomes more problematic may need a daily prophy treatment for migraines further recommendations to follow I have seen and discussed above patient with Dr Alcon Rivers, neurology I have seen this man reviewed his history and imaging studies and done a brief exam ( normal ) this is likely a magraine event with spread of the aura into to left pareital area from its more typical occipital areas like he has had lifelong at now a low frequency. I would suggest that at the onset of the aura he take a full aspirin and wait for the aura to clear before taking the triptan as there is a risk of precipitating a cva with triptans in migraine with aura Agree with Nini Laird and have reviewed the case with her and discussed the above managent options Alcon Rivers MD
[2016-04-24 15:19] VITALS: BP 133/73; PULSE 69; TEMP 36.9; O2SAT 98
--- NOTE | 2016-04-24 18:45 | Discharge Instructions ---
Discharge Instructions Admission Reason for Admission: Stroke-Like Symptoms Discharge Discharge Diagnosis / Problem: expressive aphasia- mostly migrainous Discharge Goals Goal(s): Decrease discomfort, Improve function Activity Recommendations Activity Limitations: resume your previous activity . Instructions / Follow-Up Instructions / Follow-Up FOLLOWUP WITH FAMILY DOCTOR ON Apr 9:50AM AT THE ONSET OF AURA TO TAKE FULL DOSE ASPIRIN(325MG) AND WAIT FOR AURA TO RESOLVE AND THEN TAKE IMITREX Current Hospital Diet Patient's current hospital diet: Diabetes Type 2 Diet Discharge Diet Recommended Diet: AHA Diet (Heart Healthy) Pending Studies Studies pending at discharge: no Laboratory Results Hemoglobin A1c Test 04/23/16 11:04 Range/Units Estimated Average Glucose 154 mg/dl Hemoglobin A1c 7.0 H 4.5-5.6 % Lipid Panel Test 04/24/16 05:18 Range/Units Triglycerides Level 97 0-150 mg/dl Cholesterol Level 129 0-200 mg/dl HDL Cholesterol 53 mg/dl Cholesterol/HDL Ratio 2.4 LDL Cholesterol, Calculated 57 mg/dl Medical Emergencies . Who to Call and When: Medical Emergencies: If at any time you feel your situation is an emergency, please call 911 immediately. . Non-Emergent Contact Non-Emergency issues call your: Primary Care Provider . . "Provider Documentation" section prepared by Thad Gooden. VTE Core Measure Inpt VTE Proph given/why not?: Enoxaparin (Lovenox)SQ (declined)
[2016-04-24 19:03] VITALS: BP 133/73; PULSE 69; TEMP 36.9; O2SAT 98
--- NOTE | 2016-04-24 19:55 | Discharge Summary ---
Discharge Summary Admission Date: Apr 23, 2016 at 12:59 Discharge Date: Apr 24, 2016 Discharge Disposition: Home Principal Diagnosis: EXPRESSIVE APHASIA MOSTLY MIGRAINOUS Secondary Diagnoses/Problems: (1) Asthma Status: Chronic (2) Diabetes mellitus type 2, controlled, without complications Status: Chronic (3) Dyslipidemia Status: Chronic (4) Esophageal reflux Status: Chronic (5) GERD (gastroesophageal reflux disease) Status: Chronic (6) HTN (hypertension) Status: Chronic (7) Migraines Status: Chronic (8) Tietze's disease Status: Chronic Procedures: HEAD CT: No acute intracranial abnormality. BRAIN MRI: No acute intracranial abnormality. BRAIN MRA: No significant stenosis, occlusion, or aneurysm within the [place]. CAROTID US: No hemodynamically significant stenosis seen within the carotid arteries. ECHO: No cardiac source of emboli noted. * The left ventricle is normal in size. * There is moderate concentric left ventricular hypertrophy. * Ejection Fraction = 55-60%. * The right ventricular systolic function is normal. * The left atrial size is normal. * Right atrial size is normal. * No significant valvular pathology. Consultations: NEUROLOGY Medication Reconciliation Continued Medications: Aspirin Enteric Coated (Ecotrin Or Generic *) 81 Mg Ectab 81 MG PO DAILY Cinnamon (Cinnamon) 500 Mg Cap 500 MG PO DAILY Fish Oil ([place]-3) 1 Ea Cap 1 CAP PO DAILY, 0 Refills Fluticasone Propionate (Flovent Hfa) 120 Puffs/76716 Mcg Aero 2 PUFFS INH BID PRN for Wheezing for 30 Days, #1 INHALER 2 Refills Lisinopril/Hctz (Prinzide 20-25MG) Tab 1 TAB PO DAILY for 30 Days, #30 TAB 5 Refills Lorazepam (Ativan *) 0.5 Mg Tab 0.5 MG PO Q6HR PRN, 0 Refills Metformin Hcl (Glucophage) 500 Mg Tab 500 MG PO BID, TAB Metoprolol Succ (Toprol Xl) (Toprol-Xl) 25 Mg Tabcr 12.5 MG PO, #30 TAB as needed Multivitamin (Multivitamin) Tab 1 TAB PO DAILY, 0 Refills Omeprazole (Prilosec Otc *) 20 Mg Tabcr 40 MG PO DAILY, 0 Refills Simvastatin (Zocor) 10 Mg Tab 10 MG PO QPM, TAB Sumatriptan Succinate (Imitrex) 50 Mg Tab 50 MG PO PRN PRN for Migraine, TAB Admission Information HPI (per Admitting provider): This is a 76 y/o male with PMHx of DM 2, Migraines, HTN, Dyslipidemia and other problems as outlined below who presents to the ED c/o difficulty speaking that began this morning. Pt reports that he woke up around 0700 feeling his normal self. Around 0800 he developed a L sided migraine with aura and took an Imitrex. He then developed confusion and difficulty "finding the right words". Pt has +FmHx of strokes but he denies any personal history. Pt denies fever/ chills, visual changes, diaphoresis, chest pain, palpitations, SOB, wheezing, abd pain, N/V, bowel or bladder issues, LE edema ,calf pain, lightheadedness/ dizziness, unilateral weakness, difficulty ambulating, difficulty swallowing or facial droop. In the ED, vitals are stable. Head CT is negative. Pt has some persistent expressive aphasia at time however he feels that is has improved from this morning. He will be admitted for further evaluation and treatment. Physical Exam (per Admitting): General Appearance: WD/WN, no apparent distress, + pertinent finding (Pt is sitting up in bed with and daughter at bedside) Head: normocephalic, atraumatic Eyes: normal inspection, PERRL, EOMI ENT: hearing grossly normal Neck: supple Respiratory/Chest: chest non-tender, lungs clear, normal breath sounds, no respiratory distress Cardiovascular: regular rate, rhythm, no edema, no murmur Abdomen/GI: normal bowel sounds, non tender, soft Back: normal inspection Extremities/Musculoskelatal: normal inspection, no calf tenderness, no pedal edema Neurologic/Psych: real time operator II-XII nml as tested, no motor/sensory deficits, alert , normal mood/affect, oriented x 3 Skin: normal color, warm/dry Physical Exam (per Admitting): General Appearance: WD/WN, no apparent distress, + pertinent finding (Pt is sitting up in bed with and daughter at bedside) Head: normocephalic, atraumatic Eyes: normal inspection, PERRL, EOMI ENT: hearing grossly normal Neck: supple Respiratory/Chest: chest non-tender, lungs clear, normal breath sounds, no respiratory distress Cardiovascular: regular rate, rhythm, no edema, no murmur Abdomen/GI: normal bowel sounds, non tender, soft Back: normal inspection Extremities/Musculoskelatal: normal inspection, no calf tenderness, no pedal edema Neurologic/Psych: real time operator II-XII nml as tested, no motor/sensory deficits, alert, normal mood/affect, oriented x 3 Skin: normal color, warm/dry Hospital Course EXPRESSIVE APHASIA R/O CVA pt presents with expressive aphasia and headache HX OF MIGRAINES CT HEAD NEGATIVE MRI/MRA HEAD NEGATIVE ECHO AND CAROTID DOPPLER NEGATIVE SEEN BY NEURO MOSTLY MIGRIANOUS RECOMMENDED TO TAKE FULL ASPIRIN WHEN AURA STARTS AND TO TAKE IMITREX AFTER AURA RESOLVES. DM 2 D/C ON HOME EMDS H/O MIGRAINES cont Imitrex PRN GERD PPI HTN ON metoprolol and lisinopril-HCTZ DYSLIPIDEMIA statin and fish oil DISCHARGED HOME Total time spent on discharge = 35MINUTES This includes examination of the patient, discharge planning, medication reconciliation, and communication with other providers.
--- NOTE | 2016-04-24 19:58 | Progress Note ---
Internal Med Progress Note Date of Service: Apr 24, 2016. Provider Documentation: SUBJECTIVE: SPEECH NORMAL NO SWALLOW ISSUES DID FINE IN PT/OT WANT TO GO HOME OBJECTIVE: Vital Signs-as noted below Exam: General-alert and oriented x 3 ENT-normal hearing Neck-no neck masses Lungs-cta b/l no rhonchi no wheezing Heart-s1 and s2 heard regular rate and rhythm, no murmurs Abdomen-soft bowel sounds present non tender no distension Extremities-no edema no erythema Neuro-alert and awake SPEECH CLEAR NON FOCAL Lab data as noted below. ASSESSMENT & PLAN: EXPRESSIVE APHASIA R/O CVA pt presents with expressive aphasia and headache HX OF MIGRAINES CT HEAD NEGATIVE MRI/MRA HEAD NEGATIVE ECHO AND CAROTID DOPPLER NEGATIVE SEEN BY NEURO MOSTLY MIGRIANOUS RECOMMENDED TO TAKE FULL ASPIRIN WHEN AURA STARTS AND TO TAKE IMITREX AFTER AURA RESOLVES. DM 2 D/C ON HOME EMDS H/O MIGRAINES cont Imitrex PRN GERD PPI HTN ON metoprolol and lisinopril-HCTZ DYSLIPIDEMIA statin and fish oil DISCHARGED HOME Vital Signs: Date Time Temp Pulse Resp B/P Pulse Ox O2 Delivery O2 Flow Rate FiO2 04/24/16 19:03 36.9 69 20 98 Room Air 04/24/16 16:00 Room Air 04/24/16 15:19 36.9 69 20 133/73 98 Room Air 04/24/16 11:50 Room Air 04/24/16 11:39 36.7 65 18 99/54 95 Room Air 04/24/16 07:45 Room Air 04/24/16 07:30 36.5 68 17 132/74 97 Room Air 04/24/16 04:36 36.4 76 20 124/67 98 Room Air 04/24/16 04:00 Room Air 04/24/16 00:00 Room Air 04/23/16 23:55 36.6 64 18 102/58 96 Room Air 04/23/16 21:34 Room Air Lab Results: Results Past 24 Hours Test 04/23/16 20:44 04/24/16 05:18 04/24/16 07:48 04/24/16 11:33 Range/Units Bedside Glucose 125 132 125 70-99 mg/dl White Blood Count 10.59 4.8-10.8 K/uL Red Blood Count 4.66 4.7-6.1 M/uL Hemoglobin 13.8 14.0-18.0 g/dL Hematocrit 41.1 42-52 % Mean Corpuscular Volume 88.2 80-100 fL Mean Corpuscular Hemoglobin 29.6 25-34 pg Mean Corpuscular Hemoglobin Concent 33.6 32-36 g/dl Platelet Count 240 130-400 K/uL Mean Platelet Volume 10.4 7.4-10.4 fL Neutrophils (%) (Auto) 66.1 % Lymphocytes (%) (Auto) 21.3 % Monocytes (%) (Auto) 5.9 % Eosinophils (%) (Auto) 6.0 % Basophils (%) (Auto) 0.4 % Neutrophils # (Auto) 7.00 1.4-6.5 K/uL Lymphocytes # (Auto) 2.26 1.2-3.4 K/uL Monocytes # (Auto) 0.62 0.11-0.59 K/uL Eosinophils # (Auto) 0.64 0-0.5 K/uL Basophils # (Auto) 0.04 0-0.2 K/uL RDW Standard Deviation 38.1 36.4-46.3 fL RDW Coefficient of Variation 12.0 11.5-14.5 % Immature Granulocyte % (Auto) 0.3 % Immature Granulocyte # (Auto) 0.03 0.00-0.02 K/uL Sodium Level 144 136-145 mmol/L Potassium Level 4.5 3.5-5.1 mmol/L Chloride Level 106 98-107 mmol/L Carbon Dioxide Level 31 21-32 mmol/L Anion Gap 7.0 3-11 mmol/L Blood Urea Nitrogen 21 7-18 mg/dl Creatinine 1.10 0.60-1.40 mg/dl Est Creatinine Clear Calc Drug Dose 52.6 ml/min Estimated GFR () 74.7 Estimated GFR (Non- 64.4 BUN/Creatinine Ratio 18.8 10-20 Random Glucose 136 70-99 mg/dl Calcium Level 8.4 8.5-10.1 mg/dl Triglycerides Level 97 0-150 mg/dl Cholesterol Level 129 0-200 mg/dl HDL Cholesterol 53 mg/dl LDL Cholesterol, Calculated 57 mg/dl VLDL Cholesterol, Calculated 19 mg/dl Cholesterol/HDL Ratio 2.4
--- NOTE | 2016-04-27 09:33 | EDITING REQUIRED CODING QUERY ---
SUPPORTING DIAGNOSIS NEEDED A supporting diagnosis is required for the test/procedure performed on this patient in order for us to be reimbursed by ([employer]). Please provide a supporting diagnosis for the following tests listed below next to the test name along with your signature. *If there is no additional diagnosis for this patient that would support the following test/procedure please document that below next to the test/procedure. Tests that require a supporting diagnosis: DOS 04/23/16 * MRA Head DIAGNOSIS: r/o CVA Providers Signature: __Alka Alvarado Thank you Kerline Lua
== END 2016-04-24 19:41 | disposition home or self-care (01) ==
LOC: ENRESERVDT → ENRESERVTM → C.EDB 10:46 → C.MED 12:59
PROVIDERS: ADMIT Internal Medicine; ATTEND Internal Medicine
DX: G43.909 Migraine, unspecified, not intractable, without status migrainosus (principal); E11.9 Type 2 diabetes mellitus without complications; I10 Essential (primary) hypertension; E78.5 Hyperlipidemia, unspecified; J45.909 Unspecified asthma, uncomplicated; K21.9 Gastro-esophageal reflux disease without esophagitis; Z86.73 Personal history of transient ischemic attack (TIA), and cerebral infarction without residual deficits; M94.0 Chondrocostal junction syndrome [Tietze]; Z79.899 Other long term (current) drug therapy; Z79.82 Long term (current) use of aspirin; R47.01 Aphasia

== ENCOUNTER 2021-12-23 09:36 | Inpatient (IN) ==
[2021-12-23] MEDS ORDERED: SODIUM CHLORIDE 0.9% 500 ML IV STA (10:27)
--- NOTE | 2021-12-23 10:33 | Emergency Department Note ---
Impression & Plan Rectal bleeding, Lower abdominal pain, Colitis ED Provider Note NAME: ANNA NELSON AGE: 81 SEX: M : 1940 ARRIVES VIA: Walk-In INFORMANT: [Patient] ED PROVIDER(S): [Chadwick Graff MD] CHIEF COMPLAINT: GI bleeding HISTORY OF PRESENT ILLNESS: The patient is an 81-year-old male with a history of GI bleeding and ischemic colitis. He also has A. fib but is not on any anticoagulation. He has a history of colon cancer. The patient presents with abdominal cramping that began in the middle of the night, about 8 to 10 hours ago. The pain is a 5 or 6 when present but he does not wear any pain medication. The patient developed diarrhea last evening and then this morning, has just had bloody stool. He still has the cramps. He has had some nausea without vomiting. No fever. No cough or congestion or shortness of breath. No bad food eaten, no sick contacts. The patient did take 2 ibuprofen yesterday but otherwise, has not been on [id number] NSAIDs. He does take a baby aspirin daily though. The patient had ischemic colitis in the past and today's presentation feels similar. REVIEW OF SYSTEMS: See HPI for pertinent positives and negatives. A total of ten systems were reviewed and were otherwise negative. PMHx/PSHx: See Below SOCIAL HISTORY: See Below. PHYSICAL EXAM: GENERAL: Patient is in no acute distress. HEENT: No acute trauma, normocephalic atraumatic, mucous membranes moist, no nasal congestion, no scleral icterus. NECK: No stridor, no adenopathy, no meningismus, trachea is midline. LUNGS: Clear to auscultation bilaterally, no wheeze, no rhonchi, breath sounds equal. HEART: Irregular rhythm, normal rate, no murmurs. ABDOMEN: Soft, mildly diffusely tender, no peritonitis. EXTREMITIES: No cyanosis, mild bilateral pedal edema, full range of motion of all the joints without pain or difficulty, no signs for acute trauma. NEUROLOGIC: Oriented x 3, no acute motor or sensory deficits, no focal weakness. SKIN: No rash, no jaundice, no diaphoresis. DIFFERENTIAL DIAGNOSIS: Appendicitis, testicular torsion, diverticulitis, colitis, UTI, obstruction, mesenteric ischemia, aortic pathology, inflammatory bowel disease, renal colic, PUD, pancreatitis, biliary pathology, hernia, volvulus, constipation, as well as other pathologies. EMERGENCY DEPARTMENT COURSE/PROCEDURES: ECG: Indication was irregular rhythm and GI bleeding. The ECG shows atrial fibrillation with PVCs. The rate is 68. There is some nonspecific ST change, no ST elevation. QTc is 440. Continuous Cardiac Monitoring: An order was placed for continuous cardiac m onitoring. The monitor shows a rate of 78 with atrial fibrillation. MEDICAL DECISION MAKING: There is no leukocytosis or concerning anemia. There is a normal platelet count. INR is slightly high at 1.2. PTT are is normal. There was some mild dehydration/renal insufficiency with a creatinine of 1.43. No electrolyte abnormality in need of emergent correction. Lactic acid level is not elevated making bowel ischemia less likely. Bilirubin mildly elevated, the remaining liver enzymes were unremarkable. No evidence for pancreatitis by our testing. ECG shows atrial fibrillation, no ischemic change. Cardiac enzyme testing x1 does show a slight troponin elevation. This elevation could be secondary to mismatch and/or cardiac strain/injury. Of note, the patient does not have any chest pain. Stool bio fire testing was completely negative. COVID, influenza and RSV test were negative. Abdominal and pelvis CT shows colitis, no bowel obstruction, no abscess. On exam, the patient appeared comfortable with some mild abdominal pain on palpation. The patient received IV saline for hydration, he was given 1 L. He is currently resting. The patient appears to have colitis, possibly ischemic colitis as the cause for his presentation. I did speak with GI, I spoke with case management, the on- call hospitalist was consulted. Past Med/Surg History Medical History (Updated 12/23/21 @ 14:49 by Chadwick Graff MD) Asthma inhaler/nebulizer prn Atrial fibrillation on plavix daily---follows with Dr. Muñiz BPH (benign prostatic hyperplasia) BPH loc w urin obs/LUTS Cervical stenosis of spine Chronic obstructive pulmonary disease inhaler/nebulizer prn Colon cancer 1995--sx Diabetes mellitus, type 2 Elevated PSA Essential tremor Hearing deficit Hematuria History of ischemic colitis Hyperlipidemia Hypertension Lumbar stenosis Migraine Osteoarthritis Peyronie's disease Stone in kidney Urethral stricture in male Surgical History History of ankle fusion right ankle History of arthroscopy of left knee x2 History of bowel resection History of cardioversion History of carpal tunnel release of both wrists History of colonoscopy History of endoscopic sinus surgery History of esophagogastroduodenoscopy (EGD) History of prostate biopsy benign History of prostate surgery greenlight laser History of repair of right rotator cuff x2 History of tonsillectomy History of transesophageal echocardiography (ADALGISA) x2 Hx of vasectomy Presence of Watchman left atrial appendage closure device 09/05/2018 [place] [facility] [place] [facility] [place] History Brother Family history of diabetes mellitus Mother Family history of diabetes mellitus Father Family history of stomach cancer Grandfather (Paternal) Family history of stomach cancer Other No family history of adverse response to anesthesia Social History Smoking Status: Never smoker Second Hand Exposure: No; Hx Alcohol Use: No Hx Substance Use: No Preferred Language: Croatian Communication Ability: Effective Signals Collector/Analyst Required: No Beliefs That Will Affect Care: None Current Living Situation: Spouse Feels Safe at Home: Yes Assistive Devices: Glasses and Hearing Aid - Bilateral Allergies Allergies Allergy/AdvReac Type Severity Reaction Status Date / Time oxycodone Allergy Intermediate HIVES? Verified 05/27/20 08:55 Penicillins Allergy Mild Rash Verified 05/27/20 08:55 acetaminophen [From Percocet] Allergy Unknown Verified 05/27/20 08:55 Home Meds Home Medications Medication Instructions Recorded Confirmed gabapentin 300 mg capsule 300 mg PO HS PRN Pain 02/07/19 05/27/20 glimepiride 1 mg tablet 1 mg PO HS 02/07/19 05/27/20 ipratropium bromide 21 mcg (0.03 2 spray intranasal TID PRN Nasal 02/07/19 0 05/27/20 %) nasal spray Congestion levalbuterol HCl 0.63 mg/3 mL 0.63 mg inhalation Q4 PRN Wheezing 02/07/19 05/27/20 solution for nebulization levalbuterol tartrate 45 1 puff inhalation Q4 PRN Wheezing 02/07/19 05/27/20 mcg/actuation aerosol inhaler lisinopril 20 1 tab PO QAM 02/07/19 05/27/20 mg-hydrochlorothiazide 25 mg tablet magnesium oxide 400 mg PO HS 02/07/19 05/27/20 metoprolol succinate 25 mg 25 mg PO QAM 02/07/19 05/27/20 tablet,extended release 24 hr metoprolol succinate 50 mg 50 mg PO QAM 02/07/19 05/27/20 tablet,extended release 24 hr omeprazole 40 mg capsule,delayed 40 mg PO QAM 02/07/19 05/27/20 release riboflavin (vitamin B2) 400 mg 800 mg PO QAM 02/07/19 05/27/20 tablet simvastatin 10 mg tablet 10 mg PO HS 02/07/19 05/27/20 Results & Data (ED) Vital Signs Vital Signs - 24 hr 12/23/21 09:49 12/23/21 10:41 12/23/21 12:00 Temperature 36.7 C Temperature Source Oral Pulse Rate 79 78 Pulse Rate [Left] 78 Pulse Rhythm Regular Pulse Rhythm [Left] Regular Pulse Strength [Left] Normal Respiratory Rate 18 18 18 Respiratory Effort / Characteristics Non-Labored Spontaneous Respiratory Depth Normal Blood Pressure 142/76 H Blood Pressure [Left Arm] 162/89 H Blood Pressure Mean 98 Blood Pressure Mean [Left Arm] 113 Blood Pressure Position [Left Arm] Lying Pulse Oximetry 98 98 96 Oxygen Delivery Method Room Air Room Air Room Air Sepsis Recent Fever Within 48 Hours No Sepsis New/Unexplained Change in Mental Status No Sepsis Action Taken by Nursing No Action Required Home Medications Current Medication List: was personally reviewed by me Laboratory Data Attestation: I reviewed the patient's lab results. Result diagrams: 12/23/21 10:40 12/23/21 10:40 Lab Results 12/23/21 12/23/21 12/23/21 Range/Units 10:40 10:40 10:40 WBC 10.68 (4.8-10.8) K/ul RBC 5.07 (4.63-6.08) M/uL Hgb 14.7 (14.0-18.0) g/dl Hct 46.0 (40.1-51.0) % MCV 90.7 (80.0-100.0) fL MCH 29.0 (25.0-34.0) pg MCHC 32.0 (32.0-36.0) g/dL RDW Std Deviation 41.9 (36.4-46.3) fL RDW Coeff of Darius 12.7 (11.5-14.5) % Plt Count 220 (130-400) K/uL MPV 10.9 (9.4-12.4) fL Immature Gran % (Auto) 0.4 % Neut % (Auto) 85.9 % Lymph % (Auto) 8.1 % [place] % (Auto) 5.0 % Eos % (Auto) 0.2 % Baso % (Auto) 0.4 % Neut # (Auto) 9.19 H (1.4-6.5) K/uL Lymph # (Auto) 0.86 L (1.2-3.4) K/uL [place] # (Auto) 0.53 (0.24-0.82) K/uL Eos # (Auto) 0.02 (0-0.50) K/uL Baso # (Auto) 0.04 (0-0.2) K/uL Immature Gran # (Auto) 0.04 H (0.00-0.02) K/uL PT 12.3 H (9.0-12.0) Seconds INR 1.2 H (0.9-1.1) APTT 25.6 (21.0-31.0) Seconds PTT Ratio 0.9 Sodium 140 (136-145) mmol/L Potassium 4.5 (3.5-5.1) mmol/L Chloride 104 (98-107) mmol/L Carbon Dioxide 27 (21-32) mmol/L Anion Gap 9 (3-11) BUN 33 H (6-23) mg/dl Creatinine 1.43 H (0.6-1.4) mg/dl Est Cr Clr Drug Dosing 37.2 ml/min Est GFR ( Amer) 52.5 ml/min Est GFR (Non-Af Amer) 45.3 ml/min BUN/Creatinine Ratio 23.1 H (10-20) Glucose 177 H (70-99(Fasting)) mg/dl Lactate (0.4-2.0) mmol/L Calcium 9.6 (8.5-10.1) mg/dl Total Bilirubin 1.9 H (0.2-1.0) mg/dl AST 27 (13-39) U/L ALT 22 (7-52) U/L Alkaline Phosphatase 67 (34-104) U/L Troponin I High Sens 25.6 H (0-20) pg/ml Total Protein 6.9 (6.0-8.3) gm/dl Albumin 4.3 (3.4-5.0) gm/dl Globulin 2.6 (2.5-4.0) gm/dl Albumin/Globulin Ratio 1.7 (0.9-2) Lipase 30 (11-82) U/L Stl C. cayetanensis PCR (NotDetected) Stool Rotavirus A PCR (NotDetected) Stl Adenov F 40/41 PCR (NotDetected) Stool Astrovirus (PCR) (NotDetected) Stool Campylobacter PCR (NotDetected) Stl C. diff Tox A/B PCR (NotDetected) Stool Cryptosporidium PCR (NotDetected) Stl E.coli Shiga Tox PCR (NotDetected) Stl Enterotoxigenic E PCR (NotDetected) Stool EPEC (PCR) (NotDetected) Stool EAEC (PCR) (NotDetected) Stl E. histolytica PCR (NotDetected) Stool Giardia Lamblia PCR (NotDetected) Stool Salmonella PCR (NotDetected) Stool Sapovirus (PCR) (NotDetected) Stl P. shigelloides PCR (NotDetected) Stl Shigella/EIEC PCR (NotDetected) St Y.enterocolitica PCR (NotDetected) Stool Vibrio (PCR) (NotDetected) Stl Vibrio cholerae PCR (NotDetected) Stl Norovirus GI/GII PCR (NotDetected) SARS-CoV-2 (PCR) (Negative) Influenza Type A (PCR) (Neg) Influenza Type B (PCR) (Neg) RSV (RT-PCR) (Neg) SARS-CoV-2, RNA, NAAT 12/23/21 12/23/21 12/23/21 Range/Units 10:40 10:42 10:50 WBC (4.8-10.8) K/ul RBC (4.63-6.08) M/uL Hgb (14.0-18.0) g/dl Hct (40.1-51.0) % MCV (80.0-100.0) fL MCH (25.0-34.0) pg MCHC (32.0-36.0) g/dL RDW Std Deviation (36.4-46.3) fL RDW Coeff of Darius (11.5-14.5) % Plt Count (130-400) K/uL MPV (9.4-12.4) fL Immature Gran % (Auto) % Neut % (Auto) % Lymph % (Auto) % [place] % (Auto) % Eos % (Auto) % Baso % (Auto) % Neut # (Auto) (1.4-6.5) K/uL Lymph # (Auto) (1.2-3.4) K/uL [place] # (Auto) (0.24-0.82) K/uL Eos # (Auto) (0-0.50) K/uL Baso # (Auto) (0-0.2) K/uL Immature Gran # (Auto) (0.00-0.02) K/uL PT (9.0-12.0) Seconds INR (0.9-1.1) APTT (21.0-31.0) Seconds PTT Ratio Sodium (136-145) mmol/L Potassium (3.5-5.1) mmol/L Chloride (98-107) mmol/L Carbon Dioxide (21-32) mmol/L Anion Gap (3-11) BUN (6-23) mg/dl Creatinine (0.6-1.4) mg/dl Est Cr Clr Drug Dosing ml/min Est GFR ( Amer) ml/min Est GFR (Non-Af Amer) ml/min BUN/Creatinine Ratio (10-20) Glucose (70-99(Fasting)) mg/dl Lactate (0.4-2.0) mmol/L Calcium (8.5-10.1) mg/dl Total Bilirubin (0.2-1.0) mg/dl AST (13-39) U/L ALT (7-52) U/L Alkaline Phosphatase (34-104) U/L Troponin I High Sens (0-20) pg/ml Total Protein (6.0-8.3) gm/dl Albumin (3.4-5.0) gm/dl Globulin (2.5-4.0) gm/dl Albumin/Globulin Ratio (0.9-2) Lipase (11-82) U/L Stl C. cayetanensis PCR Not Detected (NotDetected) Stool Rotavirus A PCR Not Detected (NotDetected) Stl Adenov F 40/41 PCR Not Detected (NotDetected) Stool Astrovirus (PCR) Not Detected (NotDetected) Stool Campylobacter PCR Not Detected (NotDetected) Stl C. diff Tox A/B PCR Not Detected (NotDetected) Stool Cryptosporidium PCR Not Detected (NotDetected) Stl E.coli Shiga Tox PCR Not Detected (NotDetected) Stl Enterotoxigenic E PCR Not Detected (NotDetected) Stool EPEC (PCR) Not Detected (NotDetected) Stool EAEC (PCR) Not Detected (NotDetected) Stl E. histolytica PCR Not Detected (NotDetected) Stool Giardia Lamblia PCR Not Detected (NotDetected) Stool Salmonella PCR Not Detected (NotDetected) Stool Sapovirus (PCR) Not Detected (NotDetected) Stl P. shigelloides PCR Not Detected (NotDetected) Stl Shigella/EIEC PCR Not Detected (NotDetected) St Y.enterocolitica PCR Not Detected (NotDetected) Stool Vibrio (PCR) Not Detected (NotDetected) Stl Vibrio cholerae PCR Not Detected (NotDetected) Stl Norovirus GI/GII PCR Not Detected (NotDetected) SARS-CoV-2 (PCR) NEGATIVE (Negative) Influenza Type A (PCR) Negative (Neg) Influenza Type B (PCR) Negative (Neg) RSV (RT-PCR) Negative (Neg) SARS-CoV-2, RNA, NAAT Cancelled 12/23/21 Range/Units 11:18 WBC (4.8-10.8) K/ul RBC (4.63-6.08) M/uL Hgb (14.0-18.0) g/dl Hct (40.1-51.0) % MCV (80.0-100.0) fL MCH (25.0-34.0) pg MCHC (32.0-36.0) g/dL RDW Std Deviation (36.4-46.3) fL RDW Coeff of Darius (11.5-14.5) % Plt Count (130-400) K/uL MPV (9.4-12.4) fL Immature Gran % (Auto) % Neut % (Auto) % Lymph % (Auto) % [place] % (Auto) % Eos % (Auto) % Baso % (Auto) % Neut # (Auto) (1.4-6.5) K/uL Lymph # (Auto) (1.2-3.4) K/uL [place] # (Auto) (0.24-0.82) K/uL Eos # (Auto) (0-0.50) K/uL Baso # (Auto) (0-0.2) K/uL Immature Gran # (Auto) (0.00-0.02) K/uL PT (9.0-12.0) Seconds INR (0.9-1.1) APTT (21.0-31.0) Seconds PTT Ratio Sodium (136-145) mmol/L Potassium (3.5-5.1) mmol/L Chloride (98-107) mmol/L Carbon Dioxide (21-32) mmol/L Anion Gap (3-11) BUN (6-23) mg/dl Creatinine (0.6-1.4) mg/dl Est Cr Clr Drug Dosing ml/min Est GFR ( Amer) ml/min Est GFR (Non-Af Amer) ml/min BUN/Creatinine Ratio (10-20) Glucose (70-99(Fasting)) mg/dl Lactate 1.4 (0.4-2.0) mmol/L Calcium (8.5-10.1) mg/dl Total Bilirubin (0.2-1.0) mg/dl AST (13-39) U/L ALT (7-52) U/L Alkaline Phosphatase (34-104) U/L Troponin I High Sens (0-20) pg/ml Total Protein (6.0-8.3) gm/dl Albumin (3.4-5.0) gm/dl Globulin (2.5-4.0) gm/dl Albumin/Globulin Ratio (0.9-2) Lipase (11-82) U/L Stl C. cayetanensis PCR (NotDetected) Stool Rotavirus A PCR (NotDetected) Stl Adenov F 40/41 PCR (NotDetected) Stool Astrovirus (PCR) (NotDetected) Stool Campylobacter PCR (NotDetected) Stl C. diff Tox A/B PCR (NotDetected) Stool Cryptosporidium PCR (NotDetected) Stl E.coli Shiga Tox PCR (NotDetected) Stl Enterotoxigenic E PCR (NotDetected) Stool EPEC (PCR) (NotDetected) Stool EAEC (PCR) (NotDetected) Stl E. histolytica PCR (NotDetected) Stool Giardia Lamblia PCR (NotDetected) Stool Salmonella PCR (NotDetected) Stool Sapovirus (PCR) (NotDetected) Stl P. shigelloides PCR (NotDetected) Stl Shigella/EIEC PCR (NotDetected) St Y.enterocolitica PCR (NotDetected) Stool Vibrio (PCR) (NotDetected) Stl Vibrio cholerae PCR (NotDetected) Stl Norovirus GI/GII PCR (NotDetected) SARS-CoV-2 (PCR) (Negative) Influenza Type A (PCR) (Neg) Influenza Type B (PCR) (Neg) RSV (RT-PCR) (Neg) SARS-CoV-2, RNA, NAAT Administered Medications Discontinued Medications Sodium Chloride (Nss) 500 mls @ 999 mls/hr IV .Q31M STA Stop: 12/23/21 10:57 Last Infusion: 12/23/21 11:33 Dose: 0 mls/hr Documented By: Admin: 12/23/21 10:57 Dose: 999 mls/hr Documented By: JOSH Sodium Chloride (Nss 1000ml) 500 mls @ 999 mls/hr IV .Q31M ONE Stop: 12/23/21 12:08 Last Infusion: 12/23/21 12:42 Dose: 0 mls/hr Documented By: Admin: 12/23/21 12:00 Dose: 999 mls/hr Documented By: OJSH Ioversol (Optiray 300 100ml) 93 ml IV ONCE ONE Stop: 12/23/21 11:53 Last Admin: 12/23/21 11:49 Dose: 93 ml Documented By: SAVANNA Imaging Data Radiologist's Impression: Abdomen/Pelvis CT 12/23/21 10:27 CT SCAN OF THE ABDOMEN AND PELVIS WITH IV CONTRAST CLINICAL HISTORY: Generalized abdominal pain. Hematochezia. COMPARISON STUDY: Abdominal CT dated 04/12/2020. TECHNIQUE: Following the IV administration of 93 cc of Optiray 300, CT scan of the abdomen and pelvis is performed from the lung bases to the proximal femora. Images are reviewed in the axial, sagittal, and coronal planes. IV contrast was administered without complication. A dose lowering technique was utilized adhering to the principles of ALARA. CT DOSE: 415.90 mGy.cm FINDINGS: Lung bases: The heart is enlarged and without pericardial effusion. The coronary arteries are densely calcified. An occlusion device versus calcified thrombus is again seen within the left atrial appendage. The lung bases are clear noting bibasilar scarring/atelectasis. Liver: The contrast-enhanced liver is normal in size and contour. Attenuation is heterogeneous. There is no intrahepatic biliary ductal dilatation. The hepatic veins and portal veins are patent. A 1.1 cm cyst is noted in the left lobe. A 1.5 cm hemangioma suggested in the right lobe on image #122. This is unchanged. Gallbladder: Unremarkable. Spleen: Normal in size and attenuation. Pancreas: Unremarkable. Adrenal glands: Unremarkable. Kidneys: The contrast enhanced kidneys demonstrate mild cortical atrophy and are without hydronephrosis. The kidneys enhance symmetrically. There is a 5 mm nonobstructing calculus on the right. Abdominal vasculature: The abdominal aorta is normal in course and caliber noting moderate to advanced atherosclerotic calcification. Bowel: There is postoperative change from rectosigmoid resection with colocolic anastomosis. No bowel obstruction is identified. There is a long segment of wall thickening and mild edema involving the colon. This extends from the proximal transverse colon to the distal descending colon. There is minimal surrounding infiltration. There are scattered diverticula of the right colon without CT evidence of acute diverticulitis. The appendix is well-visualized and normal. Peritoneum: There is no intraperitoneal free air or abdominal ascites. There is a small fat-containing umbilical hernia. Lymphadenopathy: None. Pelvic viscera: The prostate gland is markedly enlarged and heterogeneous noting median lobe hypertrophy. The bladder wall is thickened and trabeculated indicating chronic outlet obstruction. Skeletal structures: The skeletal structures are osteopenic. There is mild/moderate lumbosacral spondylosis. No lytic or blastic lesions are seen. IMPRESSION: 1. There is evidence of a nonspecific colitis of the transverse and descending colon. 2. There is no bowel obstruction. No intraperitoneal free air is seen. 3. Cardiomegaly. 4. Right-sided nephrolithiasis. 5. Additional findings as above. ACT 112: Negative or not required by law. Electronically signed by: Chadwick Wilkes M.D. 12/23/2021 12:02 PM Discharge Plan Visit Data Chief Complaint: GI Bleed Stated Complaint: RECTAL BLEEDING, ABDOMINAL PAIN ED Provider: Chadwick Graff Discharge Problem: Rectal bleeding, Lower abdominal pain, Colitis Patient Disposition: Admitted As Inpatient Condition: Fair Forms Stand Alone Forms: [facility] GPal Prescriptions Prescriptions: No Action levalbuterol HCl 0.63 mg/3 mL Solution For Nebulization 0.63 mg INHALATION Q4 PRN (Reason: Wheezing) metoprolol succinate 50 mg Tablet Extended Release 24 Hr 50 mg PO QAM Rx Instructions: with 25mg to equal 75mg simvastatin 10 mg Tablet 10 mg PO HS omeprazole 40 mg Capsule,Delayed Release(Dr/Ec) 40 mg PO QAM glimepiride 1 mg Tablet 1 mg PO HS gabapentin 300 mg Capsule 300 mg PO HS PRN (Reason: Pain) lisinopril-hydrochlorothiazide 20-25 mg Tablet 1 tab PO QAM metoprolol succinate 25 mg Tablet Extended Release 24 Hr 25 mg PO QAM Rx Instructions: with 50mg to equal 75mg ipratropium bromide 0.03 % Wallace,Non-Aerosol 2 spray INTRANASAL TID PRN (Reason: Nasal Congestion) levalbuterol tartrate 45 mcg/actuation Hfa Aerosol Inhaler 1 puff INHALATION Q4 PRN (Reason: Wheezing) magnesium oxide 400 mg magnesium Capsule 400 mg PO HS riboflavin (vitamin B2) 400 mg Tablet 800 mg PO QAM Referrals Referrals: Vijay Almanzar MD [Primary Care Provider] -
[2021-12-23 11:20] LABS: Basophils # (auto) 0.04 K/uL (0-0.2); Basophils % (auto) 0.4 %; Eosinophils # (auto) 0.02 K/uL (0-0.50); Eosinophils % (auto) 0.2 %; Hemoglobin 14.7 g/dl (14.0-18.0); Immature Granulocytes # (auto) 0.04 K/uL (0.00-0.02); Immature Granulocytes % (auto) 0.4 %; Lymphocytes # (auto) 0.86 K/uL (1.2-3.4); Lymphocytes % (auto) 8.1 %; Mean Corpuscular Volume 90.7 fL (80.0-100.0); Mean Platelet Volume 10.9 fL (9.4-12.4); Monocytes # (auto) 0.53 K/uL (0.24-0.82); Neutrophils # (auto) 9.19 K/uL (1.4-6.5); Neutrophils % (auto) 85.9 %; Platelet Count 220 K/uL (130-400); RDW Coefficient of Variation 12.7 % (11.5-14.5); RDW Standard Deviation 41.9 fL (36.4-46.3); Red Blood Count 5.07 M/uL (4.63-6.08); White Blood Count 10.68 K/ul (4.8-10.8)
[2021-12-23 11:23] LABS: INR 1.2 (0.9-1.1); Partial Thromboplastin Ratio 0.9; Partial Thromboplastin Time 25.6 Seconds (21.0-31.0); Prothrombin Time 12.3 Seconds (9.0-12.0)
[2021-12-23 11:36] LABS: Albumin Globulin Ratio 1.7 (0.9-2); Albumin Level 4.3 gm/dl (3.4-5.0); BUN Creatinine Ratio 23.1 (10-20); Bilirubin,Total 1.9 mg/dl (0.2-1.0); Calcium 9.6 mg/dl (8.5-10.1); Creatinine Clr Calc Pharmacy 37.2 ml/min; Est GFR (African American) 52.5 ml/min; Est GFR (Non-African American) 45.3 ml/min; Globulin 2.6 gm/dl (2.5-4.0); Potassium 4.5 mmol/L (3.5-5.1); Total Protein 6.9 gm/dl (6.0-8.3); Troponin I High Sensitivity 25.6 pg/ml (0-20)
[2021-12-23] MEDS ORDERED: SODIUM CHLORIDE 0.9% 1000ML 500 ML IV ONE (11:38)
[2021-12-23] MEDS ORDERED: OPTIRAY 300 100mL IV ONE (11:52)
--- NOTE | 2021-12-23 12:03 | CT Scan Report ---
CT SCAN OF THE ABDOMEN AND PELVIS WITH IV CONTRAST CLINICAL HISTORY: Generalized abdominal pain. Hematochezia. COMPARISON STUDY: Abdominal CT dated 04/12/2020. TECHNIQUE: Following the IV administration of 93 cc of Optiray 300, CT scan of the abdomen and pelvi s is performed from the lung bases to the proximal femora. Images are reviewed in the axial, sagittal , and coronal planes. IV contrast was administered without complication. A dose lowering technique wa s utilized adhering to the principles of ALARA. CT DOSE: 415.90 mGy.cm FINDINGS: Lung bases: The heart is enlarged and without pericardial effusion. The coronary arteries are densely calcified. An occlusion device versus calcified thrombus is again seen within the left atrial append age. The lung bases are clear noting bibasilar scarring/atelectasis. Liver: The contrast-enhanced liver is normal in size and contour. Attenuation is heterogeneous. There is no intrahepatic biliary ductal dilatation. The hepatic veins and portal veins are patent. A 1.1 c m cyst is noted in the left lobe. A 1.5 cm hemangioma suggested in the right lobe on image #122. This is unchanged. Gallbladder: Unremarkable. Spleen: Normal in size and attenuation. Pancreas: Unremarkable. Adrenal glands: Unremarkable. Kidneys: The contrast enhanced kidneys demonstrate mild cortical atrophy and are without hydronephros is. The kidneys enhance symmetrically. There is a 5 mm nonobstructing calculus on the right. Abdominal vasculature: The abdominal aorta is normal in course and caliber noting moderate to advance d atherosclerotic calcification. Bowel: There is postoperative change from rectosigmoid resection with colocolic anastomosis. No bowel obstruction is identified. There is a long segment of wall thickening and mild edema involving the c olon. This extends from the proximal transverse colon to the distal descending colon. There is minima l surrounding infiltration. There are scattered diverticula of the right colon without CT evidence of acute diverticulitis. The appendix is well-visualized and normal. Peritoneum: There is no intraperitoneal free air or abdominal ascites. There is a small fat-containin g umbilical hernia. Lymphadenopathy: None. Pelvic viscera: The prostate gland is markedly enlarged and heterogeneous noting median lobe hypertro phy. The bladder wall is thickened and trabeculated indicating chronic outlet obstruction. Skeletal structures: The skeletal structures are osteopenic. There is mild/moderate lumbosacral spond ylosis. No lytic or blastic lesions are seen. IMPRESSION: 1. There is evidence of a nonspecific colitis of the transverse and descending colon. 2. There is no bowel obstruction. No intraperitoneal free air is seen. 3. Cardiomegaly. 4. Right-sided nephrolithiasis. 5. Additional findings as above. ACT 112: Negative or not required by law. Electronically signed by: Chadwick Wilkes M.D. 12/23/2021 12:02 PM
[2021-12-23 12:16] LABS: Influenza A virus by PCR Negative (Neg); Influenza B virus by PCR Negative (Neg); RSV by PCR Negative (Neg); SARS CoV2 RNA(COVID-19) InHosp NEGATIVE (Negative)
[2021-12-23 12:50] LABS: Adenovirus F 40/41 PCR Not Detected (NotDetected); Astrovirus PCR Not Detected (NotDetected); Campylobacter PCR Not Detected (NotDetected); Clostridium diff Toxin A/B PCR Not Detected (NotDetected); Cryptosporidium PCR Not Detected (NotDetected); Cyclospora cayetanensis PCR Not Detected (NotDetected); Entamoeba histolytica PCR Not Detected (NotDetected); Enteroaggregative E.coli(EAEC) Not Detected (NotDetected); Enteropathogenic E.coli (EPEC) Not Detected (NotDetected); Enterotoxigenic E.coli (ETEC) Not Detected (NotDetected); Giardia lamblia PCR Not Detected (NotDetected); Norovirus GI/GII PCR Not Detected (NotDetected); Plesiomonas shigelloides PCR Not Detected (NotDetected); Rotavirus A PCR Not Detected (NotDetected); Salmonella PCR Not Detected (NotDetected); Sapovirus PCR Not Detected (NotDetected); Shiga-like Toxin E.coli (STEC) Not Detected (NotDetected); Shigella/Enteroinvasive E.coli Not Detected (NotDetected); Vibrio cholerae PCR Not Detected (NotDetected); Vibrio species PCR Not Detected (NotDetected); Yersinia enterocolitica PCR Not Detected (NotDetected)
--- NOTE | 2021-12-23 13:46 | History & Physical Report ---
Date of Service December 23, 2021 Assessment & Plan (1) Rectal bleeding: (2) Colitis: Plan: Patient is 81 y/o M with PMH HTN, dyslipidemia, DM II, asthma, restrictive lung disease, persistent atrial fibrillation s/p Watchman procedure no longer on anticoagulation, colon cancer s/p resection, CKD III, GERD, and others listed below presented to ER with c/o abdominal cramping followed by loose stools and rectal bleeding. Denies fever/chills, N/V. On daily aspirin 81mg, denies recent NSAID use. In ER afebrile, vitals stable. No leukocytosis, Lactate WNL, H/H: 14.7/46, BUN: 33, Cr: 1.[address] Abd/Pelvis: There is evidence of a nonspecific colitis of the transverse and descending colon. There is no bowel obstruction. No intraperitoneal free air is seen. In ER given 1L NSS DDX: ischemic colitis Continue gentle IVF NPO Cipro, Flagyl Hold aspirin H&H Q6H Type and cross PRBC and hold GI consult CBC, BMP in am (3) CKD (chronic kidney disease), stage III: Plan: Cr: 1.4. Baseline: 1.4 Monitor renal functions avoid nephrotoxic agents when possible (4) Diabetes mellitus, type II: Plan: A1c: 7.4 on 11/02/21 Hold home medications Novolog sliding scale per protocol (5) HTN (hypertension): Plan: Stable Continue lisinopril, metoprolol succinate with holding parameters Hold HCTZ (6) Dyslipidemia: Plan: Hold simvastatin for now (7) History of atrial fibrillation: Plan: S/P Watchman procedure. No longer on anticoagulation Hold aspirin Continue metoprolol succinate (8) Ocular migraine: Plan: Continue gabapentin (9) Asthma: (10) Restrictive lung disease: Plan: No signs of exacerbation Continue Xopenex prn (11) GERD (gastroesophageal reflux disease): Plan: Convert home oral PPI to IV DVT Prophylaxis SCDs Full Code as per discussion with pt Follows with Dr Almanzar for routine care Pt was seen and care coordinated with Dr Campbell. See addendum History of Present Illness Primary Care Provider: Vijay Almanzar MD Patient is 81 y/o M with PMH HTN, dyslipidemia, DM II, asthma, restrictive lung disease, persistent atrial fibrillation s/p Watchman procedure no longer on anticoagulation, colon cancer s/p resection, CKD III, GERD, and others listed below presented to ER with c/o rectal bleeding. Patient states during middle of the night started with abdominal cramping. Initial bowel movements were formed then had several other BM's that became looser. This morning liquid stool followed by multiple episodes of bright red rectal bleeding. Reports mid abdominal cramping that has decreased. Denies dizziness, syncope, CP, SOB. History ischemic colitis in 2018 that he reports this feels similar. Has chronic constipation and uses Miralax every other day. Denies fever/chills, diaphoresis, N/V, LICEA, vision changes, neck pain, CP, SOB, orthopnea, palpitations, cough, sore throat, choking, otalgia, rhinorrhea, abdominal pain, paresthesias, weakness, extremity weakness, extremity edema, rashes, urinary symptoms. History colonoscopy 05/05/21: end to side colocolonic anastomosis with healthy appearing mucosa, diverticulosis in entire colon, nonbleeding internal hemorrhoids History EGD 05/05/21: 3 gastric polyps Allergies Allergy/AdvReac Type Severity Reaction Status Date / Time oxycodone Allergy Intermediate HIVES? Verified 05/27/20 08:55 Penicillins Allergy Mild Rash Verified 05/27/20 08:55 acetaminophen [From Percocet] Allergy Unknown Verified 05/27/20 08:55 Home Medications Medication Instructions Recorded Confirmed Type glimepiride 1 mg tablet 1 mg PO HS 02/07/19 12/23/21 History ipratropium bromide 21 mcg (0.03 2 spray intranasal TID PRN Nasal 02/07/19 12/23/21 History %) nasal spray Congestion levalbuterol HCl 0.63 mg/3 mL 0.63 mg inhalation Q4 PRN Wheezing 02/07/19 12/23/21 History solution for nebulization levalbuterol tartrate 45 1 puff inhalation Q4 PRN Wheezing 02/07/19 12/23/21 History mcg/actuation aerosol inhaler lisinopril 20 1 tab PO QAM 02/07/19 12/23/21 History mg-hydrochlorothiazide 25 mg tablet magnesium oxide 400 mg PO HS 02/07/19 12/23/21 History metoprolol succinate 25 mg 25 mg PO QAM 02/07/19 12/23/21 History tablet,extended release 24 hr metoprolol succinate 50 mg 50 mg PO QAM 02/07/19 12/23/21 History tablet,extended release 24 hr omeprazole 40 mg capsule,delayed 40 mg PO QAM 02/07/19 12/23/21 History release riboflavin (vitamin B2) 400 mg 800 mg PO QAM 02/07/19 12/23/21 History tablet simvastatin 10 mg tablet 10 mg PO HS 02/07/19 12/23/21 History aspirin 81 mg tablet,delayed 81 mg PO DAILY 12/23/21 12/23/21 History release gabapentin 100 mg capsule 100 mg PO QID 12/23/21 12/23/21 History linagliptin 5 mg tablet (Tradjenta) 5 mg PO DAILY 12/23/21 12/23/21 History polyethylene glycol 3350 17 gram 17 g PO Q2D 12/23/21 12/23/21 History oral powder packet (Miralax) Past Med/Surg History Medical History (Updated 12/23/21 @ 15:13 by Farzana David PA-C) Asthma inhaler/nebulizer prn Atrial fibrillation on plavix daily---follows with Dr. Muñiz BPH (benign prostatic hyperplasia) BPH loc w urin obs/LUTS Cervical stenosis of spine Chronic obstructive pulmonary disease inhaler/nebulizer prn CKD (chronic kidney disease), stage III Colon cancer 1995--sx Diabetes mellitus, type 2 Diabetes mellitus, type II Elevated PSA Essential tremor Hearing deficit Hematuria History of atrial fibrillation History of ischemic colitis Hyperlipidemia Hypertension Lumbar stenosis Migraine Osteoarthritis Peyronie's disease Restrictive lung disease Stone in kidney Urethral stricture in male Surgical History History of ankle fusion right ankle History of arthroscopy of left knee x2 History of bowel resection History of cardioversion History of carpal tunnel release of both wrists History of colonoscopy History of endoscopic sinus surgery History of esophagogastroduodenoscopy (EGD) History of prostate biopsy benign History of prostate surgery greenlight laser History of repair of right rotator cuff x2 History of tonsillectomy History of transesophageal echocardiography (ADALGISA) x2 Hx of vasectomy Presence of Watchman left atrial appendage closure device [place] [facility] [place] Brother Family history of diabetes mellitus Mother Family history of diabetes mellitus Father Family history of stomach cancer Grandfather (Paternal) Family history of stomach cancer Other No family history of adverse response to anesthesia Social History Smoking Status: Never smoker Second Hand Exposure: No; Hx Alcohol Use: No Hx Substance Use: No Preferred Language: Icelandic Communication Ability: Effective Testing Lead Required: No Beliefs That Will Affect Care: None Current Living Situation: Spouse Feels Safe at Home: Yes Assistive Devices: Glasses and Hearing Aid - Bilateral Review of Systems 2 Review of Systems: All systems reviewed & are unremarkable except as noted in HPI & below Physical Exam Physical Exam: General: no distress, WDWN Head: normocephalic, atraumatic Eyes: conjunctiva non-injected, anicteric ENT: normal inspection external ears, nose, mucous membranes moist Neck: supple, trachea midline Lungs: faint scattered rales, no respiratory distress, no wheezing/rhonchi CV: irregularly irregular, rate 76, no murmur, no pretibial edema Abd: normal BS, soft, non-tender to palpation at this time Ext: no cyanosis, no calf tenderness Neuro: A&O x 3, no focal deficits noted, normal affect Skin: warm, dry Results & Data Results & Data ([facility]) Vital Signs (Past 12 Hours) Vital Signs Temp Pulse Pulse Resp BP BP Pulse Ox 12/23/21 12:00 78 18 162/89 H 96 12/23/21 10:41 78 18 98 12/23/21 09:49 36.7 C 79 18 142/76 H 98 O2 Del Method 12/23/21 12:00 Room Air 12/23/21 10:41 Room Air 12/23/21 09:49 Room Air Laboratory Results Short CBC 12/23/21 Range/Units 10:40 WBC 10.68 (4.8-10.8) K/ul Hgb 14.7 (14.0-18.0) g/dl Hct 46.0 (40.1-51.0) % Plt Count 220 (130-400) K/uL BMP 12/23/21 10:40 Sodium 140 Potassium 4.5 Chloride 104 Carbon Dioxide 27 BUN 33 H Creatinine 1.43 H Glucose 177 H Calcium 9.6 Liver Function 12/23/21 Range/Units 10:40 Total Bilirubin 1.9 H (0.2-1.0) mg/dl AST 27 (13-39) U/L ALT 22 (7-52) U/L Alkaline Phosphatase 67 (34-104) U/L Albumin 4.3 (3.4-5.0) gm/dl Diagnostic Findings Abdomen/Pelvis CT 12/23/21 10:27 CT SCAN OF THE ABDOMEN AND PELVIS WITH IV CONTRAST CLINICAL HISTORY: Generalized abdominal pain. Hematochezia. COMPARISON STUDY: Abdominal CT dated 04/12/2020. TECHNIQUE: Following the IV administration of 93 cc of Optiray 300, CT scan of the abdomen and pelvis is performed from the lung bases to the proximal femora. Images are reviewed in the axial, sagittal, and coronal planes. IV contrast was administered without complication. A dose lowering technique was utilized adhering to the principles of ALARA. CT DOSE: 415.90 mGy.cm FINDINGS: Lung bases: The heart is enlarged and without pericardial effusion. The coronary arteries are densely calcified. An occlusion device versus calcified thrombus is again seen within the left atrial appendage. The lung bases are clear noting bibasilar scarring/atelectasis. Liver: The contrast-enhanced liver is normal in size and contour. Attenuation is heterogeneous. There is no intrahepatic biliary ductal dilatation. The hepatic veins and portal veins are patent. A 1.1 cm cyst is noted in the left lobe. A 1.5 cm hemangioma suggested in the right lobe on image #122. This is unchanged. Gallbladder: Unremarkable. Spleen: Normal in size and attenuation. Pancreas: Unremarkable. Adrenal glands: Unremarkable. Kidneys: The contrast enhanced kidneys demonstrate mild cortical atrophy and are without hydronephrosis. The kidneys enhance symmetrically. There is a 5 mm nonobstructing calculus on the right. Abdominal vasculature: The abdominal aorta is normal in course and caliber noting moderate to advanced atherosclerotic calcification. Bowel: There is postoperative change from rectosigmoid resection with colocolic anastomosis. No bowel obstruction is identified. There is a long segment of wall thickening and mild edema involving the colon. This extends from the proximal transverse colon to the distal descending colon. There is minimal surrounding infiltration. There are scattered diverticula of the right colon without CT evidence of acute diverticulitis. The appendix is well-visualized and normal. Peritoneum: There is no intraperitoneal free air or abdominal ascites. There is a small fat-containing umbilical hernia. Lymphadenopathy: None. Pelvic viscera: The prostate gland is markedly enlarged and heterogeneous noting median lobe hypertrophy. The bladder wall is thickened and trabeculated indicating chronic outlet obstruction. Skeletal structures: The skeletal structures are osteopenic. There is mild/moderate lumbosacral spondylosis. No lytic or blastic lesions are seen. IMPRESSION: 1. There is evidence of a nonspecific colitis of the transverse and descending colon. 2. There is no bowel obstruction. No intraperitoneal free air is seen. 3. Cardiomegaly. 4. Right-sided nephrolithiasis. 5. Additional findings as above. ACT 112: Negative or not required by law. Electronically signed by: Chadwick Wilkes M.D. 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 fib, HTN, CKD stage III, essential tremor, SNHL presented to our ED 12/23 with complaint of abdominal pain/watery stools/bright red blood per rectum. Per patient, he woke up around 2 AM today with abdominal pain and had initially formed bowel movements leading up to watery bowel movement in the same sitting, but no blood noted at the time. He went back to sleep, woke up again with belly pain and this time it was watery bowel movement with blood in it. He had multiple events of bright red blood per rectum after hours leading up to presentation to our ED. Patient denies active belly pain at bedside exam. Patient denies any fever/chills/recent hospitalization/recent antibiotic use/acute changes in his bladder habits/chest pain/headache/dizziness/other review of symptoms. Patient denies use of smoking tobacco/alcohol/recreational drugs. Patient is full code. Patient does not use any NSAIDs on a regular basis. Patient does not strain during defecation most of the time, he rather uses MiraLAX on a scheduled basis. Admitting labs reviewed, hemoglobin 14.7, blood consent obtained, creatinine around baseline per outpatient chart review. Admitting CTAP with colitis, IV Cipro and metronidazole for now, to be transitioned to p.o. tomorrow, n.p.o., GI consult, IV PPI twice daily, caution with blood pressure medication, place 2 wide bore peripheral IV lines, avoid NSAIDs. Upon examination: GENERAL: Alert and oriented x3. NAD, on RA. HEENT: No pallor, no icterus. Pupils equal, round and reactive to light. Oral mucosa moist. NECK: No JVD, no neck masses. HEART: S1 and S2 heard. Regular rate and rhythm. No murmur, no gallop. RESPIRATORY SYSTEM: Normal AP diameter. No accessory muscle use. No wheezing, diffuse and b/l crackles. ABDOMEN: Soft, bowel sounds present, nontender, no distention. CENTRAL NERVOUS SYSTEM: No facial droop. Speech is clear. Obeys simple commands. Moves extremities. EXTREMITIES: trace edema, no erythema seen. I have seen and examined the patient and have discussed the case with the provider above. I agree with the assessment and plan as stated.
[2021-12-23] MEDS ORDERED: CIPROFLOXACIN / D5W 400 MG/200 ML BAG IV STA (14:30)
[2021-12-23] MEDS ORDERED: METOPROLOL SUCC 50MG EXT REL TAB PO STA (14:59)
[2021-12-23] MEDS ORDERED: METOPROLOL SUCC 25MG EXT REL TAB PO STA (14:59)
[2021-12-23] MEDS ORDERED: metroNIDAZOLE 500 MG/100 ML BAG IV STA (15:00)
[2021-12-23] MEDS ORDERED: DEXTROSE 50% 50 ML SYRINGE IV PRN (16:08)
[2021-12-23] MEDS ORDERED: GLUCOSE 40% GEL 15 GM TUBE PO PRN (16:08)
[2021-12-23] MEDS ORDERED: PROMETHAZINE HCL 12.5 MG in SODIUM CHLORIDE 0.9% 50 ML IV PRN (16:08)
[2021-12-23] MEDS ORDERED: ACETAMINOPHEN 325 MG TAB PO PRN (16:08)
[2021-12-23] MEDS ORDERED: GLUCOSE 10 TAB/TUBE PO PRN (16:08)
[2021-12-23] MEDS ORDERED: GLUCAGON FOR INJ 1 MG VIAL SQ PRN (16:08)
[2021-12-23] MEDS ORDERED: LEVALBUTEROL TARTRATE 15 GM HFA.AER.AD INH PRN (16:08)
[2021-12-23] MEDS ORDERED: SODIUM CHLORIDE 0.9% 250 ML IV PRN (16:08)
[2021-12-23] MEDS ORDERED: CARBOHYDRATES FOR HYPOGLYCEMIA PO PRN (16:08)
[2021-12-23] MEDS: SODIUM CHLORIDE 0.9% 1000ML 1,000 ML IV SCH (16:30)
[2021-12-23] MEDS ORDERED: INSULIN ASPART PER UNIT SC SCH (16:30)
--- NOTE | 2021-12-23 17:13 | Electrocardiogram Report ---
Test Reason : Blood Pressure : / mmHG Vent. Rate : 068 BPM Atrial Rate : 416 BPM P-R Int : 000 ms QRS Dur : 080 ms QT Int : 414 ms P-R-T Axes : 000 014 -21 degrees QTc Int : 440 ms Atrial fibrillation with premature ventricular or aberrantly conducted complexes Abnormal ECG When compared with ECG of 05-JUN-2019 17:49, Premature ventricular complexes are now Present Confirmed by Anderson Wu ([id number]) on 12/23/2021 5:13:13 PM Referred By: REFERRED SELF Confirmed By:Anderson Wu
[2021-12-23 17:23] LABS: Hematocrit (blood only) 43.3 % (40.1-51.0)
[2021-12-23] MEDS: CIPROFLOXACIN / D5W 400 MG/200 ML BAG IV SCH (17:41)
[2021-12-23] MEDS: GABAPENTIN 100 MG CAP PO SCH ×2 (17:42→19:56)
[2021-12-23] MEDS: PANTOprazole 40 MG in SYRINGE 0 ML IV SCH (19:56)
[2021-12-23 22:23] LABS: Hematocrit (blood only) 41.9 % (40.1-51.0); Hemoglobin 13.9 g/dl (14.0-18.0)
[2021-12-24 04:23] LABS: Hematocrit (blood only) 42.6 % (40.1-51.0); Hemoglobin 13.8 g/dl (14.0-18.0); Mean Corpuscular Hemoglobin 29.4 pg (25.0-34.0); Mean Corpuscular Hgb Conc 32.4 g/dL (32.0-36.0); Mean Corpuscular Volume 90.6 fL (80.0-100.0); Mean Platelet Volume 10.7 fL (9.4-12.4); Platelet Count 189 K/uL (130-400); RDW Coefficient of Variation 12.8 % (11.5-14.5); RDW Standard Deviation 41.7 fL (36.4-46.3); White Blood Count 14.31 K/ul (4.8-10.8)
[2021-12-24 04:42] LABS: BUN Creatinine Ratio 19.9 (10-20); Calcium 8.9 mg/dl (8.5-10.1); Creatinine Clr Calc Pharmacy 39.2 ml/min; Est GFR (African American) 55.8 ml/min; Est GFR (Non-African American) 48.1 ml/min; Potassium 4.3 mmol/L (3.5-5.1)
[2021-12-24] MEDS: CIPROFLOXACIN / D5W 400 MG/200 ML BAG IV SCH ×2 (05:09→17:39)
[2021-12-24] MEDS: SODIUM CHLORIDE 0.9% 1000ML 1,000 ML IV SCH (05:09)
[2021-12-24] MEDS: INSULIN ASPART PER UNIT SC SCH ×5 (06:16→20:40)
[2021-12-24] MEDS: METOPROLOL SUCC 25MG EXT REL TAB PO SCH (08:17)
[2021-12-24] MEDS: metroNIDAZOLE 500 MG/100 ML BAG IV SCH ×4 (08:17→23:13)
[2021-12-24] MEDS: GABAPENTIN 100 MG CAP PO SCH ×4 (08:17→20:40)
[2021-12-24] MEDS: METOPROLOL SUCC 50MG EXT REL TAB PO SCH (08:18)
[2021-12-24] MEDS: PANTOprazole 40 MG in SYRINGE 0 ML IV SCH ×2 (08:18→20:40)
[2021-12-24] MEDS: lisinopril 20 MG TAB PO SCH (08:18)
--- NOTE | 2021-12-24 14:34 | Hospitalist Progress Note ---
Date of Service December 24, 2021 Assessment & Plan (1) Rectal bleeding: (2) Colitis: Plan: In ER afebrile, vitals stable. No leukocytosis, Lactate WNL, H/H: 14.7/46, BUN: 33, Cr: 1.[address] Abd/Pelvis: There is evidence of a nonspecific colitis of the transverse and descending colon. There is no bowel obstruction. No intraperitoneal free air is seen. continues on IVF technically orthostatics are positive with an increase in HR >10 when standing, but no documented hypotension DDX: ischemic colitis Cipro, Flagyl Hold aspirin continue serial H/H Type and cross PRBC and hold GI consult (3) CKD (chronic kidney disease), stage III: Plan: chronic, stable Monitor renal functions avoid nephrotoxic agents when possible (4) Diabetes mellitus, type II: Plan: A1c: 7.4 on 11/02/21 Hold home medications Novolog sliding scale per protocol (5) HTN (hypertension): Plan: Stable Continue lisinopril, metoprolol succinate with holding parameters Hold HCTZ (6) Dyslipidemia: Plan: Hold simvastatin for now (7) History of atrial fibrillation: Plan: S/P Watchman procedure. No longer on anticoagulation Hold aspirin Continue metoprolol succinate (8) Ocular migraine: Plan: Continue gabapentin (9) Asthma: (10) Restrictive lung disease: Plan: No signs of exacerbation Continue Xopenex prn (11) GERD (gastroesophageal reflux disease): Plan: Convert home oral PPI to IV DVT Prophylaxis SCDs Full Code Dipso-cont telemetry, pending GI recommendations. Edna Diaz DO [facility] Hospitalist Admission and Anticipated Discharge Date Admission Date: December 23, 2021 Subjective 89-year-old female presented with worsening bilateral lower extremity pain and back pain. She had a known L2 compression fracture that had been managed conservatively but unsuccessfully in the prior few weeks. The patient is extremely active moving with her walker regularly. She was admitted to medicine and placed on pain medication. Orthopedic spine was consulted. 81-year-old man with persistent atrial fibrillation status post watchman procedure no longer on anticoagulation and colon cancer status post resection presented to the ER with abdominal cramping with loose stools and rectal bleeding for 2 days. He is on daily aspirin and denies any other recent NSAID use. He has persistently had bright red bleeding overnight and reports frequent abdominal cramping relieved somewhat by bowel movements. Stool culture on admission was negative and no recent history of antibiotics although he may have had some doxycycline a couple of months ago. CT abdomen pelvis revealed nonspecific colitis of the transverse and descending colon. He does endorse a history of ischemic colitis in the past but has had no issues such as dehydration changes in BP meds and no documented hypotension. Cipro and Flagyl have been started. Hemoglobin and hematocrit are currently stable. He continues on IV fluids. Review of Systems Review of Systems: All systems were reviewed and negative except as indicated above. Physical Exam Physical Exam: CONSTITUTIONAL: WNWD, vitals as above, generally well- appearing, NAD EYES: normal conjunctivae, no scleral icterus ENT: external ear and nose normal, MMM NECK: trachea midline RESPIRATORY: clear to auscultation bilaterally, no crackles, rales or wheezes, normal respiratory effort CARDIOVASCULAR: regular rate and rhythm, S1 and 2 heard without murmurs, gallops or rubs, no JVD, no peripheral edema CHEST: inspection of chest was normal GASTROINTESTINAL: soft, nontender, ND, no guarding MUSCULOSKELETAL: strength 5/5 throughout SKIN: warm and dry NEUROLOGIC: CN 2-12 grossly intact, no sensory deficit, normal cognition, normal speech, no tremor PSYCHIATRIC: alert cooperative and oriented to person, place and time. Results & Data Results & Data ([facility]) Vital Signs (Past 12 Hours) Vital Signs Temp Pulse Pulse Resp BP Pulse Ox O2 Del Method 12/24/21 11:48 36.7 C 83 18 119/79 96 Room Air 12/24/21 07:31 85 12/24/21 07:28 36.8 C 87 20 157/80 H 96 Room Air 12/24/21 03:29 36.4 C L 81 18 131/78 94 Room Air Laboratory Results Short CBC 12/23/21 12/23/21 12/24/21 Range/Units 17:11 21:59 04:14 WBC 14.31 H (4.8-10.8) K/ul Hgb 14.0 13.9 L 13.8 L (14.0-18.0) g/dl Hct 43.3 41.9 42.6 (40.1-51.0) % Plt Count 189 (130-400) K/uL BMP 12/24/21 04:14 Sodium 138 Potassium 4.3 Chloride 106 Carbon Dioxide 26 BUN 27 H Creatinine 1.36 Glucose 144 H Calcium 8.9 Medications Administered Current Inpatient Medications Acetaminophen (Acetaminophen 325 Mg Tab) 650 mg PO Q4H PRN PRN Reason: Pain or Fever Stop: 01/22/22 16:07 Dextrose (Dextrose 50% 50 Ml Syringe) 25 - 50 ml IV UD PRN; Protocol PRN Reason: Hypoglycemia Protocol Stop: 01/22/22 16:07 Gabapentin (Gabapentin 100 Mg Cap) 100 mg PO QID MARITO Stop: 01/22/22 16:59 Last Admin: 12/24/21 13:42 Dose: 100 mg Glucagon (Glucagon For Inj 1 Mg Vial) 1 mg SQ UD PRN; Protocol PRN Reason: Hypoglycemia Protocol Stop: 01/22/22 16:07 Glucose (Glucose 40% Gel 15 Gm Tube) 15 - 30 gm PO UD PRN; Protocol PRN Reason: Hypoglycemia Protocol Stop: 01/22/22 16:07 Glucose (Glucose 10 Tab/Tube) 4 - 8 tab PO UD PRN; Protocol PRN Reason: Hypoglycemia Treatment Stop: 01/22/22 16:07 Ciprofloxacin (Cipro / D5w) 400 mg in 200 mls @ 100 mls/hr IV Q12H MARITO; Protocol Stop: 01/02/22 17:59 Last Infusion: 12/24/21 07:10 Dose: Infused Metronidazole (Flagyl) 500 mg in 100 mls @ 100 mls/hr IV Q8H MARITO; Protocol Stop: 01/03/22 00:00 Last Infusion: 12/24/21 09:35 Dose: Infused Sodium Chloride (Nss 1000ml) 1,000 mls @ 80 mls/hr IV .[id number] [facility] Stop: 12/24/21 17:07 Last Admin: 12/24/21 05:09 Dose: 80 mls/hr Pantoprazole Sodium 40 mg/ (Syringe) 10 mls @ 5 mls/min IV BID MARITO Stop: 01/22/22 20:59 Last Admin: 12/24/21 08:18 Dose: 5 mls/min Promethazine HCl 12.5 mg/ (Sodium Chloride) 50.5 mls @ 202 mls/hr IV Q6H PRN PRN Reason: Nausea And Vomiting Stop: 01/22/22 16:07 Insulin Aspart (Insulin Aspart Per Unit) 0 units SC Q6 MARITO Stop: 01/23/22 00:00 Last Admin: 12/24/21 11:49 Dose: Not Given Levalbuterol HCl (Levalbuterol Tartrate 15 Gm Hfa.Aer.Ad) 1 puffs INH Q4R PRN; Protocol PRN Reason: Wheezing Stop: 01/22/22 16:07 Lisinopril ([facility] 20 Mg Tab) [facility] Stop: 01/23/22 08:59 Last Admin: 12/24/21 08:18 Dose: 20 mg Metoprolol Succinate (Metoprolol Succ 50mg Ext Rel Tab) [facility] Stop: 01/23/22 08:59 Last Admin: 12/24/21 08:18 Dose: 50 mg Metoprolol Succinate (Metoprolol Succ 25mg Ext Rel Tab) [facility] Stop: 01/23/22 08:59 Last Admin: 12/24/21 08:17 Dose: 25 mg Miscellaneous (Carbohydrates For Hypoglycemia ) 15 - 30 gm PO UD PRN PRN Reason: Hypoglycemia Protocol Stop: 01/22/22 16:07
[2021-12-24 14:46] LABS: Hemoglobin 13.2 g/dl (14.0-18.0)
--- NOTE | 2021-12-24 16:19 | Billing Data ---
Date of Service December 24, 2021 Coding Level of Care Code 22220 Office/OBS Consult Lvl 4
--- NOTE | 2021-12-24 17:25 | Consultation Report ---
GASTROENTEROLOGY CONSULTATION AGE: 81 SEX: Male. RACE: . ATTENDING PHYSICIAN: Dr. Edna Diaz CONSULTING PHYSICIAN: Dr. Hargrove Case REASON FOR CONSULTATION: Rectal bleeding, abnormal CT scan. HISTORY OF PRESENT ILLNESS: The patient is an 81-year-old male who has a significant past medical history of colon cancer, status post resection in the distant past, who also has a history of atrial fibrillation, status post Watchman procedure with no anticoagulation at present and does have a history of ischemic colitis in the past as well who sees Dr. Castillo routinely for colonoscopy. He was last seen by Dr. Dr. Castillo based on the records that are available to me for colonoscopy in 2018 and at that time did have findings of ischemic colitis. He presented to the Department of Emergency Medicine last evening with complaints of abdominal cramping followed by hematochezia. He was noted to have an H and H of 14.7 and 46. His stool PCR testing was negative. A CT scan of the abdomen and pelvis performed in the ER did show findings that were consistent with ischemic colitis with nonspecific colitis of the transverse and descending colons. He was subsequently admitted. He has had a drop in his H and H to 13.2 and 40 and states that his bowel movements have improved, stating that he only had scant blood on his last bowel movement. He does complain still of some intermittent crampy abdominal pain 4/10 in intensity, lasting only a few minutes. He has been receiving supportive care and states that he is unsure as to what led to this recent ischemic colitis as he had no chest pain, lightheadedness or dehydration. He does admit to manipulating his bowel regimen as he had previously been on MiraLax 17 grams daily in 8 ounces glass of water, though states that he has cut this back significantly over the past few weeks and does note that his stools have been slightly more solid. He at present denies any fevers, chills, nausea, vomiting, hematemesis, melena, jaundice, acholic stools, dark urine, pruritus or fatigue. PAST MEDICAL HISTORY: Significant for atrial fibrillation, status post Watchman procedure, restrictive lung disease, type 2 diabetes, chronic kidney disease stage III, history of ischemic colitis, Peyronie's disease, urethral stricture, kidney stone, elevated PSA, BPH, hematuria, aphasia, ocular migraine, TIA, GERD, Tietze's disease, dyslipidemia, history of colon cancer. PAST SURGICAL HISTORY: Includes a Watchman procedure, partial colectomy, arthroscopy of the left knee, ankle fusion, sinus surgery, prostate surgery, repair of the right rotator cuff, tonsillectomy, vasectomy. ALLERGIES: OXYCODONE, PENICILLIN. MEDICATIONS: At present include Tylenol 650 mg p.o. q.4 hours p.r.n., Cipro 400 mg IV q.12, gabapentin 100 mg p.o. q.i.d., insulin glargine 10 units subcutaneous b.i.d., sliding scale insulin, Xopenex 1 puff via inhaler every 4 hours as needed, Zestril 20 mg p.o. q.a.m., metoprolol 50 mg p.o. q.a.m., metronidazole 500 mg IV every 8 hours, Phenergan 12.5 mg IV q.6, Protonix 40 mg IV b.i.d. SOCIAL HISTORY: , lives with his . Denies any tobacco, alcohol, or illicit drug use. FAMILY HISTORY: Positive for his father and grandfather with stomach cancer. No history of colon cancer, Crohn's disease or ulcerative colitis. REVIEW OF SYSTEMS: Negative x12 systems review other than pertinent positives listed in the HPI. PHYSICAL EXAMINATION: VITAL SIGNS: Include a temperature of 36.7, pulse 81, respirations 20, blood pressure 125/77, pulse ox 94% on room air. GENERAL: Awake, cooperative, no acute distress. HEENT: Normocephalic, atraumatic. EYES: Pupils equal, round. Extraocular muscles are intact. ENT: External evaluation of ears and nose are normal. Oropharynx is clear. NECK: Soft, supple. No JVD or lymphadenopathy. CHEST: Clear to auscultation bilaterally. CARDIOVASCULAR: Regular rate and rhythm. No murmurs. ABDOMEN: Soft, nontender, nondistended, positive bowel sounds. There is no hepatosplenomegaly or stigmata of chronic liver disease. EXTREMITIES: No clubbing, cyanosis or edema. PSYCH: Cooperative, normal affect. Normal mood. LABORATORY STUDIES AND RADIOGRAPHIC STUDIES: Reviewed in the HPI. IMPRESSION: An 81-year-old male with history of ischemic colitis, who presented to the ER with complaints of abdominal pain and hematochezia with CT evidence of colitis in the distribution that would be considered highly likely for ischemic disease. PLAN: At the present time, the patient is on Cipro and Flagyl therapy by the primary team. This can be continued to prevent bacterial translocation across the damaged GI mucosa. I would recommend that he continue to receive supportive care. 90% of ischemic colitis resolves on its own and does not require any further intervention besides supportive care. I would recommend continuing his current medications as per the primary team. I would recommend an outpatient colonoscopy in 6-8 weeks to allow for healing of his GI mucosa and I will follow his clinical course and make further recommendations as needed. Once again, thanks for allowing me to participate in the care of this patient. If you have any further questions, please do not hesitate in contacting me. Job ID: [id number] DAISY
[2021-12-24] MEDS: LANTUS PER UNIT CHARGE SQ SCH (20:40)
[2021-12-24 22:50] LABS: Hematocrit (blood only) 40.8 % (40.1-51.0); Hemoglobin 13.3 g/dl (14.0-18.0)
[2021-12-25] MEDS: CIPROFLOXACIN / D5W 400 MG/200 ML BAG IV SCH ×2 (05:47→17:03)
[2021-12-25 07:35] LABS: Hematocrit (blood only) 38.7 % (40.1-51.0); Hemoglobin 12.4 g/dl (14.0-18.0); Mean Corpuscular Hemoglobin 29.2 pg (25.0-34.0); Mean Corpuscular Volume 91.3 fL (80.0-100.0); Mean Platelet Volume 11.2 fL (9.4-12.4); Platelet Count 169 K/uL (130-400); RDW Standard Deviation 42.9 fL (36.4-46.3); Red Blood Count 4.24 M/uL (4.63-6.08); White Blood Count 10.71 K/ul (4.8-10.8)
[2021-12-25] MEDS: lisinopril 20 MG TAB PO SCH (07:55)
[2021-12-25] MEDS: METOPROLOL SUCC 50MG EXT REL TAB PO SCH (07:56)
[2021-12-25] MEDS: METOPROLOL SUCC 25MG EXT REL TAB PO SCH (07:56)
[2021-12-25] MEDS: PANTOprazole 40 MG in SYRINGE 0 ML IV SCH ×2 (07:57→21:47)
[2021-12-25] MEDS: GABAPENTIN 100 MG CAP PO SCH ×4 (07:57→21:47)
[2021-12-25] MEDS: metroNIDAZOLE 500 MG/100 ML BAG IV SCH ×2 (07:57→15:54)
[2021-12-25 08:02] LABS: BUN Creatinine Ratio 15.6 (10-20); Calcium 8.5 mg/dl (8.5-10.1); Creatinine Clr Calc Pharmacy 48.9 ml/min; Est GFR (African American) 72.9 ml/min; Est GFR (Non-African American) 62.9 ml/min; Potassium 3.7 mmol/L (3.5-5.1)
[2021-12-25] MEDS: LANTUS PER UNIT CHARGE SQ SCH ×2 (08:03→21:54)
[2021-12-25] MEDS: INSULIN ASPART PER UNIT SC SCH ×5 (08:03→21:46)
--- NOTE | 2021-12-25 13:32 | Hospitalist Progress Note ---
Date of Service December 25, 2021 Assessment & Plan (1) Rectal bleeding: (2) Colitis: Plan: likely ischemic colitis-resolving with conservative measures. Negative stool PCR CT Abd/Pelvis: There is evidence of a nonspecific colitis of the transverse and descending colon. There is no bowel obstruction. No intraperitoneal free air is seen. continues on IVF cont Cipro, Flagyl restart aspirin H/H stable. Type and cross PRBC and hold defer endoscopy to 4-6 weeks as outpatient (3) CKD (chronic kidney disease), stage III: Plan: chronic, stable Monitor renal functions avoid nephrotoxic agents when possible (4) Diabetes mellitus, type II: Plan: A1c: 7.4 on 11/02/21 Hold home medications Novolog sliding scale per protocol (5) HTN (hypertension): Plan: Stable Continue lisinopril, metoprolol succinate with holding parameters Hold HCTZ (6) Dyslipidemia: Plan: Hold simvastatin for now (7) History of atrial fibrillation: Plan: S/P Watchman procedure. No longer on anticoagulation Hold aspirin Continue metoprolol succinate (8) Ocular migraine: Plan: Continue gabapentin (9) Asthma: (10) Restrictive lung disease: Plan: No signs of exacerbation Continue Xopenex prn (11) GERD (gastroesophageal reflux disease): Plan: DVT Prophylaxis-SCDs Full Code Dipso-cont telemetry, for now with hypotension and persistent bleeding. Edna Diaz DO [facility] Hospitalist Admission and Anticipated Discharge Date Admission Date: December 24, 2021 Subjective 81-year-old man with persistent atrial fibrillation status post watchman procedure no longer on anticoagulation and colon cancer status post resection presented to the ER with abdominal cramping with loose stools and rectal bleeding for 2 days. He is on daily aspirin and denies any other recent NSAID use. He has persistently had bright red bleeding overnight and reports frequent abdominal cramping relieved somewhat by bowel movements. Stool culture on admission was negative and no recent history of antibiotics although he may have had some doxycycline a couple of months ago. CT abdomen pelvis revealed nonspecific colitis of the transverse and descending colon. He does endorse a history of ischemic colitis in the past but has had no issues such as dehydration changes in BP meds and no documented hypotension. Cipro and Flagyl have been started. Hemoglobin and hematocrit are currently stable. He continues on IV fluids. overnight there was one episode of dark red blood seen wtih BM before MN No further bleeding this am but some lower abdominal cramping persists especially when he sits up denies lightheadedness BP was 91 systolic this am. Doing well with clear liquids, ok to advance to soft diet Denies nausea. Review of Systems Review of Systems: All systems were reviewed and negative except as indicated above. Physical Exam Physical Exam: CONSTITUTIONAL: WNWD, vitals as above, generally well- appearing, NAD EYES: normal conjunctivae, no scleral icterus ENT: external ear and nose normal, MMM NECK: trachea midline RESPIRATORY: clear to auscultation bilaterally, no crackles, rales or wheezes, normal respiratory effort CARDIOVASCULAR: regular rate and rhythm, S1 and 2 heard without murmurs, gallops or rubs, no JVD, no peripheral edema CHEST: inspection of chest was normal GASTROINTESTINAL: soft, nontender, ND, no guarding MUSCULOSKELETAL: strength 5/5 throughout SKIN: warm and dry NEUROLOGIC: CN 2-12 grossly intact, no sensory deficit, normal cognition, normal speech, no tremor PSYCHIATRIC: alert cooperative and oriented to person, place and time. Results & Data Results & Data ([facility]) Vital Signs (Past 12 Hours) Vital Signs Temp Pulse Resp BP Pulse Ox O2 Del Method 12/25/21 11:40 36.4 C L 86 20 111/70 94 Room Air 12/25/21 07:44 36.8 C 89 18 91/54 L 91 Room Air 12/25/21 03:02 36.8 C 83 18 102/61 94 Room Air Laboratory Results Short CBC 12/24/21 12/24/21 12/25/21 Range/Units 14:36 22:38 07:01 WBC 10.71 (4.8-10.8) K/ul Hgb 13.2 L 13.3 L 12.4 L (14.0-18.0) g/dl Hct 40.0 L 40.8 38.7 L (40.1-51.0) % Plt Count 169 (130-400) K/uL BMP 12/25/21 07:01 Sodium 138 Potassium 3.7 Chloride 106 Carbon Dioxide 26 BUN 17 Creatinine 1.09 Glucose 136 H Calcium 8.5 Medications Administered Current Inpatient Medications Acetaminophen (Acetaminophen 325 Mg Tab) 650 mg PO Q4H PRN PRN Reason: Pain or Fever Stop: 01/22/22 16:07 Dextrose (Dextrose 50% 50 Ml Syringe) 25 - 50 ml IV UD PRN; Protocol PRN Reason: Hypoglycemia Protocol Stop: 01/22/22 16:07 Gabapentin (Gabapentin 100 Mg Cap) 100 mg PO QID MARITO Stop: 01/22/22 16:59 Last Admin: 12/25/21 12:21 Dose: 100 mg Glucagon (Glucagon For Inj 1 Mg Vial) 1 mg SQ UD PRN; Protocol PRN Reason: Hypoglycemia Protocol Stop: 01/22/22 16:07 Glucose (Glucose 40% Gel 15 Gm Tube) 15 - 30 gm PO UD PRN; Protocol PRN Reason: Hypoglycemia Protocol Stop: 01/22/22 16:07 Glucose (Glucose 10 Tab/Tube) 4 - 8 tab PO UD PRN; Protocol PRN Reason: Hypoglycemia Treatment Stop: 01/22/22 16:07 Ciprofloxacin (Cipro / D5w) 400 mg in 200 mls @ 100 mls/hr IV Q12H MARITO; Protocol Stop: 01/02/22 17:59 Last Infusion: 12/25/21 07:48 Dose: Infused Metronidazole (Flagyl) 500 mg in 100 mls @ 100 mls/hr IV Q8H MARITO; Protocol Stop: 01/03/22 00:00 Last Infusion: 12/25/21 09:04 Dose: Infused Pantoprazole Sodium 40 mg/ (Syringe) 10 mls @ 5 mls/min IV BID MARITO Stop: 01/22/22 20:59 Last Admin: 12/25/21 07:57 Dose: 5 mls/min Promethazine HCl 12.5 mg/ (Sodium Chloride) 50.5 mls @ 202 mls/hr IV Q6H PRN PRN Reason: Nausea And Vomiting Stop: 01/22/22 16:07 Insulin Aspart (Insulin Aspart Per Unit) 0 units SC ACHS [facility] Stop: 01/23/22 16:44 Last Admin: 12/25/21 12:16 Dose: Not Given Insulin Glargine (Lantus Per Unit Charge) 10 units SQ BID MARITO Stop: 01/23/22 20:59 Last Admin: 12/25/21 08:03 Dose: 10 units Levalbuterol HCl (Levalbuterol Tartrate 15 Gm Hfa.Aer.Ad) 1 puffs INH Q4R PRN; Protocol PRN Reason: Wheezing Stop: 01/22/22 16:07 Lisinopril (Lisinopril 20 Mg Tab) 20 mg PO QAM [facility] Stop: 01/23/22 08:59 Last Admin: 12/25/21 07:55 Dose: Not Given Metoprolol Tartrate (Metoprolol Tartrate 25 Mg Tab) 12.5 mg PO BID [facility] Stop: 01/24/22 20:59 Miscellaneous (Carbohydrates For Hypoglycemia ) 15 - 30 gm PO UD PRN PRN Reason: Hypoglycemia Protocol Stop: 01/22/22 16:07
[2021-12-25] MEDS: METOPROLOL TARTRATE 25 MG TAB PO SCH (21:47)
[2021-12-26] MEDS: metroNIDAZOLE 500 MG/100 ML BAG IV SCH ×2 (01:03→07:45)
[2021-12-26] MEDS: CIPROFLOXACIN / D5W 400 MG/200 ML BAG IV SCH (05:28)
[2021-12-26 07:39] LABS: Hematocrit (blood only) 38.7 % (40.1-51.0); Hemoglobin 12.5 g/dl (14.0-18.0); Mean Corpuscular Hemoglobin 29.3 pg (25.0-34.0); Mean Corpuscular Hgb Conc 32.3 g/dL (32.0-36.0); Mean Corpuscular Volume 90.6 fL (80.0-100.0); Mean Platelet Volume 10.8 fL (9.4-12.4); Platelet Count 165 K/uL (130-400); RDW Coefficient of Variation 12.8 % (11.5-14.5); RDW Standard Deviation 41.9 fL (36.4-46.3); Red Blood Count 4.27 M/uL (4.63-6.08); White Blood Count 8.96 K/ul (4.8-10.8)
[2021-12-26] MEDS: lisinopril 20 MG TAB PO SCH (07:45)
[2021-12-26] MEDS: METOPROLOL TARTRATE 25 MG TAB PO SCH (07:45)
[2021-12-26] MEDS: PANTOprazole 40 MG in SYRINGE 0 ML IV SCH (07:46)
[2021-12-26] MEDS: GABAPENTIN 100 MG CAP PO SCH ×2 (07:46→12:01)
[2021-12-26] MEDS: INSULIN ASPART PER UNIT SC SCH ×2 (07:53→12:01)
[2021-12-26] MEDS: LANTUS PER UNIT CHARGE SQ SCH (07:54)
[2021-12-26 08:09] LABS: BUN Creatinine Ratio 11.9 (10-20); Calcium 8.5 mg/dl (8.5-10.1); Creatinine Clr Calc Pharmacy 48.8 ml/min; Est GFR (African American) 66.2 ml/min; Est GFR (Non-African American) 57.1 ml/min; Potassium 3.6 mmol/L (3.5-5.1)
--- NOTE | 2021-12-26 08:59 | Gastroenterology Progress Note ---
Date of Service December 26, 2021 Assessment & Plan (1) Rectal bleeding: Plan 81 year old male admitted with pain, diarrhea and rectal bleeding, imaging concerning for ischemic colitis, he is symptomatically improving this am, less pain, no bleeding x 1.5 days Can continue course of cipro/flagyl Can continue diet as tolerated Trend HGB Monitor output Plan for OP Colonoscopy with Dr. Lynn in 6 weeks GI to sign off Thank you for allowing us to participate in the care of this patient. Please call with any acute changes, questions or concerns. Please see addendum below with additional recommendation from my supervising physician. Admission and Anticipated Discharge Date Admission Date: December 24, 2021 Subjective Pt was seen and evaluated, chart reviewed. Pt admitted with pain, rectal bleeding, imaing concening for ischemic colitis HGB stable. Notes he is feeling better. Less pain No bleeding x 1.5 days No BM yet to day He is requesting an OP Colon due to his family history CTAP 2021: There is evidence of a nonspecific colitis of the transverse and descending colon. There is no bowel obstruction. No intraperitoneal free air is seen. Cardiomegaly. Right-sided nephrolithiasis. EGD 2021: Normal esophagus. - Three gastric polyps. Resected and retrieved. - Normal duodenal bulb and second portion of the duodenum. Colonoscopy 2021: The examined portion of the ileum was normal. - Patent end-to-side colo-colonic anastomosis, characterized by healthy appearing mucosa. - Diverticulosis in the entire examined colon. - Non-bleeding internal hemorrhoids Review of Systems Review of Systems: All systems reviewed & are unremarkable except as noted in HPI & below Physical Exam Constitutional: WD/WN, vitals as above Respiratory: normal respiratory effort, lungs clear to auscultation Cardiovascular: Rate/Rhythm: regular rate and regular rhythm Gastrointestinal (Abdomen): normal bowel sounds, soft, nontender, no hepatosplenomegaly Skin: no rashes, warm and dry Results & Data ([facility]) Vital Signs (Past 12 Hours) Vital Signs Temp Pulse Resp BP Pulse Ox O2 Del Method 12/26/21 07:55 36.6 C 87 18 124/73 94 Room Air 12/26/21 03:10 36.5 C 81 18 119/68 94 Room Air 12/25/21 23:04 37.1 C 94 H 18 126/74 93 Room Air Laboratory Results 12/26/21 12/26/21 12/26/21 Range/Units 07:49 07:17 07:17 WBC 8.96 (4.8-10.8) K/ul RBC 4.27 L (4.63-6.08) M/uL Hgb 12.5 L (14.0-18.0) g/dl Hct 38.7 L (40.1-51.0) % MCV 90.6 (80.0-100.0) fL MCH 29.3 (25.0-34.0) pg MCHC 32.3 (32.0-36.0) g/dL RDW Std Deviation 41.9 (36.4-46.3) fL RDW Coeff of Darius 12.8 (11.5-14.5) % Plt Count 165 (130-400) K/uL MPV 10.8 (9.4-12.4) fL Sodium 138 (136-145) mmol/L Potassium 3.6 (3.5-5.1) mmol/L Chloride 106 (98-107) mmol/L Carbon Dioxide 27 (21-32) mmol/L Anion Gap 5 (3-11) BUN 14 (6-23) mg/dl Creatinine 1.18 (0.6-1.4) mg/dl Est Cr Clr Drug Dosing 48.8 ml/min Est GFR ( Amer) 66.2 ml/min Est GFR (Non-Af Amer) 57.1 ml/min BUN/Creatinine Ratio 11.9 (10-20) Glucose 121 H (70-99(Fasting)) mg/dl POC Glucose 108 H (70-99) mg/dl Calcium 8.5 (8.5-10.1) mg/dl 12/25/21 12/25/21 12/25/21 Range/Units 20:19 17:06 11:32 WBC (4.8-10.8) K/ul RBC (4.63-6.08) M/uL Hgb (14.0-18.0) g/dl Hct (40.1-51.0) % MCV (80.0-100.0) fL MCH (25.0-34.0) pg MCHC (32.0-36.0) g/dL RDW Std Deviation (36.4-46.3) fL RDW Coeff of Darius (11.5-14.5) % Plt Count (130-400) K/uL MPV (9.4-12.4) fL Sodium (136-145) mmol/L Potassium (3.5-5.1) mmol/L Chloride (98-107) mmol/L Carbon Dioxide (21-32) mmol/L Anion Gap (3-11) BUN (6-23) mg/dl Creatinine (0.6-1.4) mg/dl Est Cr Clr Drug Dosing ml/min Est GFR ( Amer) ml/min Est GFR (Non-Af Amer) ml/min BUN/Creatinine Ratio (10-20) Glucose (70-99(Fasting)) mg/dl POC Glucose 120 H 98 131 H (70-99) mg/dl Calcium (8.5-10.1) mg/dl
[2021-12-26] MEDS ORDERED: ASPIRIN 81 MG ECTAB PO SCH (09:00)
--- NOTE | 2021-12-26 13:02 | Discharge Summary ---
Date of Service December 26, 2021 Admission HPI Per Admitting Provider Patient is 81 y/o M with PMH HTN, dyslipidemia, DM II, asthma, restrictive lung disease, persistent atrial fibrillation s/p Watchman procedure no longer on anticoagulation, colon cancer s/p resection, CKD III, GERD, and others listed below presented to ER with c/o rectal bleeding. Patient states during middle of the night started with abdominal cramping. Initial bowel movements were formed then had several other BM's that became looser. This morning liquid stool followed by multiple episodes of bright red rectal bleeding. Reports mid abdominal cramping that has decreased. Denies dizziness, syncope, CP, SOB. History ischemic colitis in 2018 that he reports this feels similar. Has chronic constipation and uses Miralax every other day. Denies fever/chills, diaphoresis, N/V, LICEA, vision changes, neck pain, CP, SOB, orthopnea, palpitations, cough, sore throat, choking, otalgia, rhinorrhea, abdominal pain, paresthesias, weakness, extremity weakness, extremity edema, rashes, urinary symptoms. History colonoscopy 05/05/21: end to side colocolonic anastomosis with healthy appearing mucosa, diverticulosis in entire colon, nonbleeding internal hemorrhoids History EGD 05/05/21: 3 gastric polyps Admission Exam Per Admitting Provider General: no distress, WDWN Head: normocephalic, atraumatic Eyes: conjunctiva non-injected, anicteric ENT: normal inspection external ears, nose, mucous membranes moist Neck: supple, trachea midline Lungs: faint scattered rales, no respiratory distress, no wheezing/rhonchi CV: irregularly irregular, rate 76, no murmur, no pretibial edema Abd: normal BS, soft, non-tender to palpation at this time Ext: no cyanosis, no calf tenderness Neuro: A&O x 3, no focal deficits noted, normal affect Skin: warm, dry Principal Diagnosis Rectal bleeding Likely ischemic colitis Discharge Exam GENERAL: Alert and oriented x3. NAD, on RA. HEENT: No pallor, no icterus. Pupils equal, round and reactive to light. Oral mucosa moist. NECK: No JVD, no neck masses. HEART: S1 and S2 heard. Regular rate and rhythm. No murmur, no gallop. RESPIRATORY SYSTEM: Normal AP diameter. No accessory muscle use. No wheezing, diffuse and b/l crackles. ABDOMEN: Soft, bowel sounds present,nontender, no distention. CENTRAL NERVOUS SYSTEM: No facial droop. Speech is clear. Obeys simple commands. Moves extremities. EXTREMITIES: trace edema, no erythema seen. Discharge Data Allergies Allergy/AdvReac Type Severity Reaction Status Date / Time oxycodone Allergy Intermediate HIVES? Verified 05/27/20 08:55 Penicillins Allergy Mild Rash Verified 05/27/20 08:55 acetaminophen [From Percocet] Allergy Unknown Verified 05/27/20 08:55 Consultations 12/23/21 13:41 ED Decision to Admit Stat 12/23/21 16:08 Consult Gastroenterology Routine Ordered Studies 12/23/21 10:27 CT abd pelvis IV con only Stat Hospital Course (1) Rectal bleeding: (2) Colitis: likely ischemic colitis-resolving with conservative measures. Negative stool PCR CT Abd/Pelvis: There is evidence of a nonspecific colitis of the transverse and descending colon. There is no bowel obstruction. No intraperitoneal free air is seen. cont Cipro, Flagyl to complete the course, probiotics added. Continue with aspirin. Patient to get blood test in 3 days upon discharge, patient to communicate with his PCP office for this test. GI evaluated, plan for scope in 4 to 6 weeks, patient to follow-up with GI as an outpatient. Patient made aware. Patient reports improving belly comfort, tolerating diet, hemodynamically stable and would like to go home. Hemoglobin has been stable. Patient reports last bowel movement without any blood in it. (3) CKD (chronic kidney disease), stage III: chronic, stable Monitor renal functions avoid nephrotoxic agents when possible (4) Diabetes mellitus, type II: A1c: 7.4 on 11/02/21 Continue with home medications upon discharge. (5) HTN (hypertension): Stable Continue with home medications upon discharge (6) Dyslipidemia: Continue with home medication (7) History of atrial fibrillation: S/P Watchman procedure. No longer on anticoagulation Continue with home medication upon discharge (8) Ocular migraine: Continue gabapentin (9) Asthma: (10) Restrictive lung disease: No signs of exacerbation (11) GERD (gastroesophageal reflux disease): Full Code Patient being discharged home with following instruction at the point of discharge: Follow-up with your primary care physician within a week time. GI doctor evaluated you while in hospital, you will need to follow-up with GI in 4 to 6 weeks for colonoscopy as discussed at the bedside. You are being discharged on oral antibiotic, complete the course. Probiotics will be added. You will need to get your blood test CBC and CMP in 3 days upon discharge. Call your primary care office to set up the test. Take your medications as prescribed. Total Time Total Time Spent Total Time Spent (In Minutes): 40 Discharge Plan Discharge Items Patient Disposition: Home - Self-Care Reason For Visit: RECTAL BLEEDING Discharge Diagnosis: Rectal bleeding Likely ischemic colitis Condition on Discharge: Fair Activity: Resume your previous activity Non-emergency contact: Primary Care Provider Call non-emergency contact if: you have any medication questions, your symptoms worsen, your pain is worsening and your temperature is above 101 Follow-up/Referrals: Vijay Almanzar MD [Primary Care Provider] - (Date & Time 01/02/2022 11:20 AM Provider Shiva Edwards DO Department [facility] ) Diet: Carb Consistent or DM2 Diet Texture: Dental soft (bite-sized) Diet Comment: Continue with soft diet for a week prior to going back to your prior diet Addtl Attending Provider Instructions: Follow-up with your primary care physician within a week time. GI doctor evaluated you while in hospital, you will need to follow-up with GI in 4 to 6 weeks for colonoscopy as discussed at the bedside. You are being discharged on oral antibiotic, complete the course. Probiotics will be added. You will need to get your blood test CBC and CMP in 3 days upon discharge. Call your primary care office to set up the test. Take your medications as prescribed. Pending Studies at Discharge: No Stand-Alone Forms: My [facility], Smoking Cessation Medications and DC Order Prescriptions: New ciprofloxacin HCl 500 mg Tablet 500 mg PO BID 10 Days Qty: 20 0RF metronidazole 500 mg Tablet 500 mg PO TID 10 Days Qty: 30 0RF Probiotic 3 billion cell capsule 3,000 mmu cells PO DAILY 14 Days Qty: 14 0RF Rx Instructions: administer with a meal Continued levalbuterol HCl 0.63 mg/3 mL Solution For Nebulization 0.63 mg INHALATION Q4 PRN (Reason: Wheezing) metoprolol succinate 50 mg Tablet Extended Release 24 Hr 50 mg PO QAM Rx Instructions: with 25mg to equal 75mg simvastatin 10 mg Tablet 10 mg PO HS omeprazole 40 mg Capsule,Delayed Release(Dr/Ec) 40 mg PO QAM glimepiride 1 mg Tablet 1 mg PO HS lisinopril-hydrochlorothiazide 20-25 mg Tablet 1 tab PO QAM metoprolol succinate 25 mg Tablet Extended Release 24 Hr 25 mg PO QAM Rx Instructions: with 50mg to equal 75mg ipratropium bromide 0.03 % [place],Non-Aerosol 2 spray INTRANASAL TID PRN (Reason: Nasal Congestion) levalbuterol tartrate 45 mcg/actuation Hfa Aerosol Inhaler 1 puff INHALATION Q4 PRN (Reason: Wheezing) magnesium oxide 400 mg magnesium Capsule 400 mg PO HS riboflavin (vitamin B2) 400 mg Tablet 800 mg PO QAM aspirin 81 mg Tablet,Delayed Release (Dr/Ec) 81 mg PO DAILY gabapentin 100 mg capsule 100 mg PO QID Tradjenta 5 mg tablet 5 mg PO DAILY polyethylene glycol 3350 [Miralax] 17 gram Powder In Packet 17 g PO Q2D Discharge Orders: Discharge Order (Routine); Ordered 12/26/21 Ordered By: Rajinder Campbell Admission Data Admit Date/Time: 12/24/21 14:14 Attending Provider: Rajinder Campbell Admit Provider: Edna Diaz Primary Care Provider: Vijay Almanzar Other Providers: Rajinder Campbell ; Ana Lilia Finley
[2021-12-26] MEDS ORDERED: metroNIDAZOLE 500 MG TAB PO SCH (14:00)
[2021-12-26] MEDS ORDERED: CIPROFLOXACIN 500 MG TAB PO SCH (21:00)
== END 2021-12-26 13:45 | disposition home or self-care (01) | DRG 394 ==
LOC: 2N 09:36 → ED 09:36 → SUATTDRO 13:57 → 2N 16:21 → SUATTDRO 12-24 14:14

== ENCOUNTER 2022-08-21 16:24 | Observation (INO) ==
--- NOTE | 2022-08-21 16:35 | Emergency Department Note ---
Impression & Plan Near syncope, Chronic a-fib ED Provider Note Provider: Moustapha Rapp MD DATE OF SERVICE: 08/21/2022 CHIEF COMPLAINT: Near syncope HISTORY OF PRESENT ILLNESS: Patient is a 82-year-old gentleman history of diabetes, hypertension, GERD, colon cancer, A-fib, TIA, BPH, and CKD [place]. Patient states he slept okay and was feeling okay first thing this morning. Went to the golf course and did have some lunch and food earlier. Entire time this after the golf course was not himself and states he was not playing it well and the other players noticed this. Was weaker than normal just in general but denies any pain. By the fifth or sixth all began develop generalized weakness and felt a bit lightheaded. Had some water. States he became fatigued with ambulating up and down hill near one of the golf greens which is atypical. Denies significant shortness of breath. States his vision began to get black and felt like he might pass out but denies any dizziness or vertigo. Denies any headache or chest pain at any time. Denies palpitation. Denies any significant abdominal pain or GI upset. Sat down on the golf cart and drink some fluids and was feeling better by the time the ambulance arrived and given additional IV fluid. States he is feeling back to more of a baseline now but is just laying. States nothing like this is happened before. Has a history of Watchman procedure no anticoagulation besides aspirin but is on metoprolol. Blood sugar for EMS was in the 140s. PAST MEDICAL HISTORY: As noted above MEDICATIONS: Reviewed home medications SOCIAL HISTORY: Retired dentist, PHYSICAL EXAM: GENERAL: alert and oriented in no acute distress on stretcher Head: normocephalic and atraumatic EYES: No injection, discharge or icterus. NECK: Trachea midline. Supple. ENT: Mucous membranes pink and moist. LUNGS: Airway patent. No retractions. Breath sounds clear with good air entry bilaterally. HEART: Irregularly irregular rate and rhythm. No chest wall tenderness ABDOMEN: Soft and non-tender, without guarding or rebound. SKIN: Acyanotic, warm, dry, without rashes EXTREMITIES: Without swelling, tenderness or deformity NEUROLOGICAL: No focal deficits. No aphasia. No facial droop or slurred speech. Ambulatory. EK bpm atrial fibrillation. No PVCs noted. No acute ST segment elevation or depression with a QTc of 455. CONTINUOUS CARDIAC MONITORING: was ordered and showed a heart rate of bpm in a trial fibrillation Patient's laboratory studies and imaging reviewed. Differential includes Infection, dehydration, metabolic abnormality, hypo/hyperglycemia, electrolyte disturbance, anemia, hypoxia, cardiac sources, intracerebral event, toxicologic, neurologic, as well as other pathologies. IMPRESSION/MEDICAL DECISION MAKING: Patient with a near syncopal episode and fatigue evolving over the course of an hour or 2 [place] the [place] this afternoon. Denies any pain. No actual syncope. No trauma. Is having some improvement after fluids. Given small amount of additional fluid here. Not having any respiratory symptoms denies recent URI symptoms. Denies GI upset and benign abdomen on exam. Rate controlled A-fib on EKG. Troponin and basic labs sent. Doubt CVA at this time. States he does not often feel palpitations or arrhythmias with his chronic underlying A-fib. Not anticoagulated related to prior Watchman procedure. States he felt uncoordinated earlier but this is improved some. Chest x-ray without significant findings per the radiology report of fluid overload or pneumonia. Blood counts without significant L leukocytosis with only borderline anemia of 12.6. No significant electrolyte abnormality or signs of hepatitis. Creatinine 1.5 today baseline around 1.3 from old labs it appears. Patient ate a sandwich here and some raisins and ambulated the bathroom without significant complaints. Again troponin elevation noted today appears chronic compared to fall value. Doubt acute ACS. Is having some improvement. Given his age however and comorbidities discussed with him staying for observation versus trial of outpatient care. He wished to stay for observation and the hospitalist was contacted. DIAGNOSIS: Near syncope, dehydration, chronic A-fib DISPOSITION: Hospitalist will evaluate Patient was agreeable with this plan. Past Med/Surg History Medical History Asthma rare inhaler/nebulizer use Atrial fibrillation metoprolol > follows with Dr. Muñiz BPH (benign prostatic hyperplasia) BPH loc w urin obs/LUTS Cervical stenosis of spine Chronic obstructive pulmonary disease inhaler/nebulizer prn CKD (chronic kidney disease), stage III Colon cancer 1995--sx Diabetes mellitus, type 2 Diabetes mellitus, type II Elevated PSA Essential tremor Hearing deficit Hematuria History of COVID-04 Mar 2020 > not hospitalized > mild loss of smell, fatigue History of ischemic colitis Hyperlipidemia Hypertension Lumbar stenosis Migraine ocular per pt, gabapentin for this Osteoarthritis Peyronie's disease Restrictive lung disease Stone in kidney none at present per pt TIA (transient ischemic attack) inconclusive per pt, no specific event Urethral stricture in male Surgical History History of ankle fusion right ankle History of arthroscopy of left knee x2 History of bowel resection 1995 History of cardioversion History of carpal tunnel release of both wrists History of colonoscopy History of endoscopic sinus surgery History of esophagogastroduodenoscopy (EGD) History of prostate biopsy benign History of prostate surgery greenlight laser History of repair of right rotator cuff x2 History of tonsillectomy History of transesophageal echocardiography (ADALGISA) x2 Hx of vasectomy Presence of Watchman left atrial appendage closure device 09/05/2018 @ [facility] [place] Family History Brother Family history of diabetes mellitus Mother Family history of diabetes mellitus Father Family history of stomach cancer Grandfather (Paternal) Family history of stomach cancer Other No family history of adverse response to anesthesia Social History Smoking Status: Never smoker Second Hand Exposure: No; Do You Dip or Chew Tobacco: No; Hx Alcohol Use: No Hx Substance Use: No Preferred Language: Guamanian Communication Ability: Effective Offset Label Rewinder Required: No Beliefs That Will Affect Care: None Current Living Situation: Spouse Feels Safe at Home: Yes Safety Concerns: Feels Safe At This Time Assistive Devices: Cane, Glasses and Hearing Aid - Bilateral Allergies Allergies Allergy/AdvReac Type Severity Reaction Status Date / Time meperidine [From Demerol] Allergy Intermediate Vomiting Verified 08/21/22 17:47 oxycodone Allergy Intermediate Hives Verified 08/21/22 17:47 Penicillins Allergy Intermediate Rash Verified 08/21/22 17:47 Home Meds Home Medications Medication Instructions Recorded Confirmed glimepiride 1 mg tablet 1 mg PO HS 02/07/19 08/21/22 lisinopril 20 1 tab PO QAM 02/07/19 08/21/22 mg-hydrochlorothiazide 25 mg tablet metoprolol succinate 25 mg 25 mg PO QAM 02/07/19 08/21/22 tablet,extended release 24 hr metoprolol succinate 50 mg 50 mg PO QAM 02/07/19 08/21/22 tablet,extended release 24 hr omeprazole 40 mg capsule,delayed 40 mg PO QAM 02/07/19 08/21/22 release simvastatin 10 mg tablet 10 mg PO HS 02/07/19 08/21/22 aspirin 81 mg tablet,delayed 81 mg PO QAM 12/23/21 08/21/22 release gabapentin 100 mg capsule 100 mg PO QID 12/23/21 08/21/22 linagliptin 5 mg tablet (Tradjenta) 5 mg PO QAM 12/23/21 08/21/22 cholecalciferol (vitamin D3) 25 25 mcg PO QAM 02/09/22 08/21/22 mcg (1,000 unit) chewable tablet (Vitamin D3) zinc acetate 50 mg (zinc) capsule 50 mg PO Q OTHER DAY 02/09/22 08/21/22 allopurinol 100 mg tablet 200 mg PO QAM 08/21/22 08/21/22 magnesium oxide 400 mg PO HS 08/21/22 08/21/22 Results & Data (ED) Vital Signs Vital Signs - 24 hr 08/21/22 16:30 08/21/22 16:13 08/21/22 16:30 Temperature 36.5 C Temperature Source Temporal Artery Scan Pulse Rate 83 81 Pulse Rate from SpO2 Sensor Pulse Rhythm Regular Pulse Strength Normal Respiratory Rate 20 Respiratory Effort / Characteristics Non-Labored Spontaneous Respiratory Depth Normal Blood Pressure 101/61 101/61 Blood Pressure Mean 74 74 Pulse Oximetry 97 Oxygen Delivery Method Room Air Sepsis Recent Fever Within 48 Hours No Sepsis New/Unexplained Change in Mental Status No Sepsis Action Taken by Nursing No Action Required 08/21/22 16:30 08/21/22 17:00 08/21/22 17:00 Temperature Temperature Source Pulse Rate 78 81 Pulse Rate from SpO2 Sensor 74 Pulse Rhythm Pulse Strength Respiratory Rate 21 22 Respiratory Effort / Characteristics Respiratory Depth Blood Pressure 93/66 L Blood Pressure Mean 75 Pulse Oximetry 93 Oxygen Delivery Method Sepsis Recent Fever Within 48 Hours Sepsis New/Unexplained Change in Mental Status Sepsis Action Taken by Nursing 08/21/22 17:30 08/21/22 17:30 08/21/22 18:00 Temperature Temperature Source Pulse Rate 80 Pulse Rate from SpO2 Sensor 77 Pulse Rhythm Pulse Strength Respiratory Rate 26 H Respiratory Effort / Characteristics Respiratory Depth Blood Pressure 106/64 106/68 Blood Pressure Mean 78 80 Pulse Oximetry 95 Oxygen Delivery Method Sepsis Recent Fever Within 48 Hours Sepsis New/Unexplained Change in Mental Status Sepsis Action Taken by Nursing 08/21/22 18:00 08/21/22 18:30 08/21/22 19:00 Temperature Temperature Source Pulse Rate 74 74 69 Pulse Rate from SpO2 Sensor 79 73 Pulse Rhythm Pulse Strength Respiratory Rate 20 28 H 22 Respiratory Effort / Characteristics Respiratory Depth Blood Pressure Blood Pressure Mean Pulse Oximetry 97 98 Oxygen Delivery Method Sepsis Recent Fever Within 48 Hours Sepsis New/Unexplained Change in Mental Status Sepsis Action Taken by Nursing 08/21/22 19:16 08/21/22 19:16 08/21/22 19:30 Temperature Temperature Source Pulse Rate 69 Pulse Rate from SpO2 Sensor 77 Pulse Rhythm Pulse Strength Respiratory Rate 17 Respiratory Effort / Characteristics Respiratory Depth Blood Pressure 111/66 118/72 Blood Pressure Mean 81 87 Pulse Oximetry 96 Oxygen Delivery Method Sepsis Recent Fever Within 48 Hours Sepsis New/Unexplained Change in Mental Status Sepsis Action Taken by Nursing 08/21/22 19:30 08/21/22 20:00 08/21/22 20:00 Temperature Temperature Source Pulse Rate 71 77 Pulse Rate from SpO2 Sensor 69 70 Pulse Rhythm Pulse Strength Respiratory Rate 25 H 21 Respiratory Effort / Characteristics Respiratory Depth Blood Pressure 162/94 H Blood Pressure Mean 116 Pulse Oximetry 96 95 Oxygen Delivery Method Sepsis Recent Fever Within 48 Hours Sepsis New/Unexplained Change in Mental Status Sepsis Action Taken by Nursing Laboratory Data 08/21/22 16:37 08/21/22 16:37 Lab Results 08/21/22 08/21/22 08/21/22 Range/Units 16:37 16:37 16:37 WBC 9.82 (4.8-10.8) K/ul RBC 4.14 L (4.70-6.10) M/uL Hgb 12.6 L (14.0-18.0) g/dl Hct 38.1 L (42.0-52.0) % MCV 92.0 (80.0-100.0) fL MCH 30.4 (25.0-34.0) pg MCHC 33.1 (32.0-36.0) g/dL RDW Std Deviation 44.4 (36.4-46.3) fL RDW Coeff of Darius 13.3 (11.5-14.5) % Plt Count 233 (130-400) K/uL MPV 10.7 (9.4-12.4) fL Immature Gran % (Auto) 0.6 % Neut % (Auto) 80.2 % Lymph % (Auto) 11.5 % Madison % (Auto) 6.5 % Eos % (Auto) 0.8 % Baso % (Auto) 0.4 % Neut # (Auto) 7.87 H (1.40-6.50) K/uL Lymph # (Auto) 1.13 L (1.2-3.4) K/uL Madison # (Auto) 0.64 H (0.11-0.59) K/uL Eos # (Auto) 0.08 (0-0.50) K/uL Baso # (Auto) 0.04 (0-0.2) K/uL Immature Gran # (Auto) 0.06 (0.01-0.20) K/uL Sodium 139 (136-145) mmol/L Potassium 4.2 (3.5-5.1) mmol/L Chloride 105 (98-107) mmol/L Carbon Dioxide 26 (21-32) mmol/L Anion Gap 8 (3-11) BUN 30 H (6-23) mg/dl Creatinine 1.52 H (0.6-1.4) mg/dl Est Cr Clr Drug Dosing 36.8 ml/min Est GFR ( Amer) 48.4 ml/min Est GFR (Non-Af Amer) 41.8 ml/min BUN/Creatinine Ratio 19.7 (10-20) Glucose 132 H (70-99(Fasting)) mg/dl Calcium 9.1 (8.6-10.3) mg/dl Magnesium 1.7 (1.7-2.4) mg/dl Total Bilirubin 1.1 H (0.2-1.0) mg/dl AST 26 (13-39) U/L ALT 22 (7-52) U/L Alkaline Phosphatase 69 (34-104) U/L Total Creatine Kinase 44 (30-223) U/L Troponin I High Sens 26.7 H (0-20) pg/ml Total Protein 6.2 (6.0-8.3) gm/dl Albumin 3.7 (3.4-5.0) gm/dl Globulin 2.5 (2.5-4.0) gm/dl Albumin/Globulin Ratio 1.5 (0.9-2) TSH 4.121 (0.300-4.500) uIu/ml Lyme Disease IgG Ab (Negative) Lyme Disease IgM Ab (Negative) SARS-CoV-2, RNA, NAAT (NEGATIVE) 08/21/22 08/21/22 Range/Units 16:37 17:08 WBC (4.8-10.8) K/ul RBC (4.70-6.10) M/uL Hgb (14.0-18.0) g/dl Hct (42.0-52.0) % MCV (80.0-100.0) fL MCH (25.0-34.0) pg MCHC (32.0-36.0) g/dL RDW Std Deviation (36.4-46.3) fL RDW Coeff of Darius (11.5-14.5) % Plt Count (130-400) K/uL MPV (9.4-12.4) fL Immature Gran % (Auto) % Neut % (Auto) % Lymph % (Auto) % Madison % (Auto) % Eos % (Auto) % Baso % (Auto) % Neut # (Auto) (1.40-6.50) K/uL Lymph # (Auto) (1.2-3.4) K/uL Madison # (Auto) (0.11-0.59) K/uL Eos # (Auto) (0-0.50) K/uL Baso # (Auto) (0-0.2) K/uL Immature Gran # (Auto) (0.01-0.20) K/uL Sodium (136-145) mmol/L Potassium (3.5-5.1) mmol/L Chloride (98-107) mmol/L Carbon Dioxide (21-32) mmol/L Anion Gap (3-11) BUN (6-23) mg/dl Creatinine (0.6-1.4) mg/dl Est Cr Clr Drug Dosing ml/min Est GFR ( Amer) ml/min Est GFR (Non-Af Amer) ml/min BUN/Creatinine Ratio (10-20) Glucose (70-99(Fasting)) mg/dl Calcium (8.6-10.3) mg/dl Magnesium (1.7-2.4) mg/dl Total Bilirubin (0.2-1.0) mg/dl AST (13-39) U/L ALT (7-52) U/L Alkaline Phosphatase (34-104) U/L Total Creatine Kinase (30-223) U/L Troponin I High Sens (0-20) pg/ml Total Protein (6.0-8.3) gm/dl Albumin (3.4-5.0) gm/dl Globulin (2.5-4.0) gm/dl Albumin/Globulin Ratio (0.9-2) TSH (0.300-4.500) uIu/ml Lyme Disease IgG Ab Negative (Negative) Lyme Disease IgM Ab Negative (Negative) SARS-CoV-2, RNA, NAAT NEGATIVE (NEGATIVE) Administered Medications Gabapentin (Gabapentin 100 Mg Cap) 100 mg PO QID MARITO Stop: 09/20/22 21:19 Last Admin: 08/21/22 22:23 Dose: 100 mg Documented By: BRYANNA Heparin Sodium (Porcine) (Heparin Sod 5,000 Unit/0.5 Ml Vial) 5,000 units SQ Q8 MARITO Stop: 09/20/22 21:59 Last Admin: 08/21/22 22:24 Dose: 5,000 units Documented By: BRYANNA Sodium Chloride (Nss 1000ml) 1,000 mls @ 150 mls/hr IV .Q6H40M ONE Stop: 08/22/22 02:04 Last Admin: 08/21/22 21:21 Dose: 100 mls/hr Documented By: BRYANNA Insulin Aspart (Insulin Aspart Per Unit Charge) 0 units SC ACHS MARITO Stop: 09/20/22 21:19 Last Admin: 08/21/22 22:23 Dose: 4 units Documented By: BRYANNA Co-signed By: DM Simvastatin (Simvastatin 10 Mg Tab) 10 mg PO [facility] Stop: 09/20/22 21:19 Last Admin: 08/21/22 22:24 Dose: 10 mg Documented By: BRYANNA Discontinued Medications Sodium Chloride (Nss) 500 mls @ 999 mls/hr IV .Q31M MARITO Stop: 08/21/22 17:30 Last Infusion: 08/21/22 17:46 Dose: 0 mls/hr Documented By: Admin: 08/21/22 16:51 Dose: 999 mls/hr Documented By: AROLDO Magnesium Sulfate/Dextrose (Magnesium Sulfate / D5w) 1 gm in 100 mls @ 50 mls/hr IV Q2H MARITO Stop: 08/21/22 23:29 Last Admin: 08/21/22 22:36 Dose: 50 mls/hr Documented By: Infusion: 08/21/22 22:36 Dose: 50 mls/hr Documented By: Admin: 08/21/22 20:37 Dose: 50 mls/hr Documented By: AV Imaging Data Radiologist's Impression: Chest X-Ray 08/21/22 16:47 XR chest 1V portable HISTORY: 82 years-old Male near syncope COMPARISON: 06/06/2019 TECHNIQUE: AP view of the chest FINDINGS: Cardiac silhouette is enlarged. The occlusion device projects over the left heart border. No pneumothorax. Unchanged blunting of the costophrenic angles. No overt pulmonary edema or large pleural effusion. Degenerative changes of the shoulders and spine. IMPRESSION: Cardiomegaly without acute process. ACT 112: Negative or not required by law. The above report was generated using voice recognition software. It may contain grammatical, syntax or spelling errors. Electronically signed by: Jake Reyes M.D. 08/21/2022 5:24 PM Discharge Plan Visit Data Chief Complaint: Syncope (Near Syncope) Stated Complaint: Near Syncope ED Provider: Moustapha Rapp Discharge Problem: Near syncope, Chronic a-fib Patient Disposition: Admitted As Inpatient Discharge Instructions Interventions: ED Discharge Assessment Last Done: 08/21/22 21:23
[2022-08-21] MEDS ORDERED: SODIUM CHLORIDE 0.9% 500 ML IV SCH (17:00)
--- NOTE | 2022-08-21 17:26 | XRay Report ---
XR chest 1V portable HISTORY: 82 years-old Male near syncope COMPARISON: 06/06/2019 TECHNIQUE: AP view of the chest FINDINGS: Cardiac silhouette is enlarged. The occlusion device projects over the left heart border. No pneumoth orax. Unchanged blunting of the costophrenic angles. No overt pulmonary edema or large pleural effusi on. Degenerative changes of the shoulders and spine. IMPRESSION: Cardiomegaly without acute process. ACT 112: Negative or not required by law. The above report was generated using voice recognition software. It may contain grammatical, syntax o r spelling errors. Electronically signed by: Jake Reyes M.D. 08/21/2022 5:24 PM
[2022-08-21 17:27] LABS: Albumin Globulin Ratio 1.5 (0.9-2); Albumin Level 3.7 gm/dl (3.4-5.0); BUN Creatinine Ratio 19.7 (10-20); Bilirubin,Total 1.1 mg/dl (0.2-1.0); Calcium 9.1 mg/dl (8.6-10.3); Creatinine Clr Calc Pharmacy 36.8 ml/min; Est GFR (African American) 48.4 ml/min; Est GFR (Non-African American) 41.8 ml/min; Globulin 2.5 gm/dl (2.5-4.0); Magnesium 1.7 mg/dl (1.7-2.4); Potassium 4.2 mmol/L (3.5-5.1); Total Protein 6.2 gm/dl (6.0-8.3)
[2022-08-21 17:28] LABS: Basophils # (auto) 0.04 K/uL (0-0.2); Basophils % (auto) 0.4 %; Eosinophils # (auto) 0.08 K/uL (0-0.50); Eosinophils % (auto) 0.8 %; Hematocrit (blood only) 38.1 % (42.0-52.0); Hemoglobin 12.6 g/dl (14.0-18.0); Immature Granulocytes # (auto) 0.06 K/uL (0.01-0.20); Immature Granulocytes % (auto) 0.6 %; Lymphocytes # (auto) 1.13 K/uL (1.2-3.4); Lymphocytes % (auto) 11.5 %; Mean Corpuscular Hemoglobin 30.4 pg (25.0-34.0); Mean Corpuscular Hgb Conc 33.1 g/dL (32.0-36.0); Mean Platelet Volume 10.7 fL (9.4-12.4); Monocytes # (auto) 0.64 K/uL (0.11-0.59); Monocytes % (auto) 6.5 %; Neutrophils # (auto) 7.87 K/uL (1.40-6.50); Neutrophils % (auto) 80.2 %; Platelet Count 233 K/uL (130-400); RDW Coefficient of Variation 13.3 % (11.5-14.5); RDW Standard Deviation 44.4 fL (36.4-46.3); Red Blood Count 4.14 M/uL (4.70-6.10); White Blood Count 9.82 K/ul (4.8-10.8)
[2022-08-21 17:32] LABS: Troponin I High Sensitivity 26.7 pg/ml (0-20)
[2022-08-21] MEDS ORDERED: SODIUM CHLORIDE 0.9% 1000ML 1,000 ML IV ONE (19:25)
--- NOTE | 2022-08-21 20:17 | History & Physical Report ---
Date of Service August 21, 2022 Assessment & Plan (1) Near syncope: Plan: Likely orthostasis given hypotension noted at the ER, possible hypovolemia ARF on CKD secondary to above New onset anemia, FOBT done at the ER was negative A-fib status post Watchman, rate controlled, not on anticoagulation due to bleeding risk/history ischemic colitis hyperlipidemia, on statin Rx asthma/restrictive lung disease as per records, stable hx colon cancer status post surgery DM2 on oral medications, reasonable control as of recent hemoglobin A1c of 7.4 last May 2022 gout, improved on recent higher dose of allopurinol OBS Medical telemetry Baseline UA Monitor creatinine response to IVF, appropriate to hold HCTZ lisinopril for now until creatinine back to baseline Appropriate to decrease maintenance Toprol-XL dose for now from 75 mg to 25 mg daily given borderline BP. Renal ultrasound if kidney function does not improve Anemia work-up, transfuse PRBC if hemoglobin less than 7 and or for symptomatic anemia Basal bolus insulin, ISS BG goal 1 10-1 40, carb count coverage DVT prophylaxis. Heparin subcu Full code Text document was generated using [employer] voice recognition software. It may contain grammatical or spelling errors. Kindly contact undersigned for clarification of any documentation item in question. History of Present Illness Chief Complaint: Weakness, lightheadedness Primary Care Provider: Vijay Almanzar MD History obtained from patient and records. Medical history significant for A-fib status post Watchman, HTN, hyperlipidemia, asthma/restrictive lung disease as per records, colon cancer status post surgery, history ischemic colitis, DM2 on oral medications, CRI (baseline creatinine 1.4), GERD, gout, essential tremors. Last confinement December 2021 for ischemic colitis status post antibiotic Rx. Patient noted worsening generalized weakness, lightheadedness during his golf game today. Patient not playing as well. No chest pain, no SOB, no headache, no abdominal pain, no black/no bloody stools, no dysuria. Patient felt like he was going to pass out. Patient saw "black with red spots' on both eyes for a moment. EMS called to golf course. BSG noted to be 140s. Patient brought to ER for evaluation. Lowest SBP of 90s noted at the ER. Patient feels much better now after IVF bolus administered at the ER. Medical History as above Surgical History : Hand/finger surgery, prostate biopsy, partial colectomy with anastomosis, left atrial appendage/Watchman device placement, sinus surgery Family History : Breast cancer, asthma, DM, cirrhosis, heart disease, stomach cancer, stroke Personal/Social history : Non-smoker, no EtOH intake, retired dentist Allergies Allergy/AdvReac Type Severity Reaction Status Date / Time meperidine [From Demerol] Allergy Intermediate Vomiting Verified 08/21/22 17:47 oxycodone Allergy Intermediate Hives Verified 08/21/22 17:47 Penicillins Allergy Intermediate Rash Verified 08/21/22 17:47 Home Medications Medication Instructions Recorded Confirmed Type glimepiride 1 mg tablet 1 mg PO HS 02/07/19 08/21/22 History lisinopril 20 1 tab PO QAM 02/07/19 08/21/22 History mg-hydrochlorothiazide 25 mg tablet metoprolol succinate 25 mg 25 mg PO QAM 02/07/19 08/21/22 History tablet,extended release 24 hr metoprolol succinate 50 mg 50 mg PO QAM 02/07/19 08/21/22 History tablet,extended release 24 hr omeprazole 40 mg capsule,delayed 40 mg PO QAM 02/07/19 08/21/22 History release simvastatin 10 mg tablet 10 mg PO HS 02/07/19 08/21/22 History aspirin 81 mg tablet,delayed 81 mg PO QAM 12/23/21 08/21/22 History release gabapentin 100 mg capsule 100 mg PO QID 12/23/21 08/21/22 History linagliptin 5 mg tablet (Tradjenta) 5 mg PO QAM 12/23/21 08/21/22 History cholecalciferol (vitamin D3) 25 25 mcg PO QAM 02/09/22 08/21/22 History mcg (1,000 unit) chewable tablet (Vitamin D3) zinc acetate 50 mg (zinc) capsule 50 mg PO Q OTHER DAY 02/09/22 08/21/22 History allopurinol 100 mg tablet 200 mg PO QAM 08/21/22 08/21/22 History magnesium oxide 400 mg PO HS 08/21/22 08/21/22 History Past Med/Surg History Medical History Asthma rare inhaler/nebulizer use Atrial fibrillation metoprolol > follows with Dr. Muñiz BPH (benign prostatic hyperplasia) BPH loc w urin obs/LUTS Cervical stenosis of spine Chronic obstructive pulmonary disease inhaler/nebulizer prn CKD (chronic kidney disease), stage III Colon cancer 1995--sx Diabetes mellitus, type 2 Diabetes mellitus, type II Elevated PSA Essential tremor Hearing deficit Hematuria History of COVID-04 Mar 2020 > not hospitalized > mild loss of smell, fatigue History of ischemic colitis Hyperlipidemia Hypertension Lumbar stenosis Migraine ocular per pt, gabapentin for this Osteoarthritis Peyronie's disease Restrictive lung disease Stone in kidney none at present per pt TIA (transient ischemic attack) inconclusive per pt, no specific event Urethral stricture in male Surgical History History of ankle fusion right ankle History of arthroscopy of left knee x2 History of bowel resection 1995 History of cardioversion History of carpal tunnel release of both wrists History of colonoscopy History of endoscopic sinus surgery History of esophagogastroduodenoscopy (EGD) History of prostate biopsy benign History of prostate surgery greenlight laser History of repair of right rotator cuff x2 History of tonsillectomy History of transesophageal echocardiography (ADALGISA) x2 Hx of vasectomy Presence of Watchman left atrial appendage closure device 09/05/2018 @ [facility] [place] Family History Brother Family history of diabetes mellitus Mother Family history of diabetes mellitus Father Family history of stomach cancer Grandfather (Paternal) Family history of stomach cancer Other No family history of adverse response to anesthesia Social History Smoking Status: Never smoker Second Hand Exposure: No; Do You Dip or Chew Tobacco: No; Hx Alcohol Use: No Hx Substance Use: No Preferred Language: German Communication Ability: Effective Mold Builder Required: No Beliefs That Will Affect Care: None Current Living Situation: Spouse Feels Safe at Home: Yes Safety Concerns: Feels Safe At This Time Assistive Devices: Cane, Glasses and Hearing Aid - Bilateral Review of Systems Review of Systems: As per HPI, all other systems reviewed and negative Physical Exam Physical Exam: GENERAL: Comfortable, slightly hard of hearing, pleasant, no respiratory distress SKIN: Normal color, warm HEENT: Alopecia, bespectacled, [place] palpebral conjunctivae, no ptosis, dry bu ccal mucosa NECK : Supple, no tenderness CHEST : CTA, no tenderness HEART : Irregular, no obvious murmurs ABDOMEN: Some distention, nontender RECTAL : Intact sphincter, brown stool (FOBT negative) EXTREMITIES : No LE swelling/tenderness, no other conspicuous deformities noted NEUROLOGIC : Coherent, no facial asymmetry, intention tremors of the hands noted, gait and stance not assessed Results & Data Results & Data Vital Signs (Past 12 Hours) Vital Signs Temp Pulse Resp BP Pulse Ox O2 Del Method 08/21/22 18:00 74 20 97 08/21/22 18:00 106/68 08/21/22 17:30 80 26 H 95 08/21/22 17:30 106/64 08/21/22 17:00 81 22 93 08/21/22 17:00 93/66 L 08/21/22 16:30 78 21 08/21/22 16:30 101/61 08/21/22 16:13 36.5 C 81 20 101/61 97 Room Air 08/21/22 16:30 83 Laboratory Results Laboratory Results WBC 9.82 K/ul (4.8-10.8) 08/21/22 16:37 RBC 4.14 M/uL (4.70-6.10) L 08/21/22 16:37 Hgb 12.6 g/dl (14.0-18.0) L 08/21/22 16:37 Hct 38.1 % (42.0-52.0) L 08/21/22 16:37 MCV 92.0 fL (80.0-100.0) 08/21/22 16:37 MCH 30.4 pg (25.0-34.0) 08/21/22 16:37 MCHC 33.1 g/dL (32.0-36.0) 08/21/22 16:37 RDW Std Deviation 44.4 fL (36.4-46.3) 08/21/22 16:37 RDW Coeff of Darius 13.3 % (11.5-14.5) 08/21/22 16:37 Plt Count 233 K/uL (130-400) 08/21/22 16:37 MPV 10.7 fL (9.4-12.4) 08/21/22 16:37 Immature Gran % (Auto) 0.6 % 08/21/22 16:37 Neut % (Auto) 80.2 % 08/21/22 16:37 Lymph % (Auto) 11.5 % 08/21/22 16:37 [place] % (Auto) 6.5 % 08/21/22 16:37 Eos % (Auto) 0.8 % 08/21/22 16:37 Baso % (Auto) 0.4 % 08/21/22 16:37 Neut # (Auto) 7.87 K/uL (1.40-6.50) H 08/21/22 16:37 Lymph # (Auto) 1.13 K/uL (1.2-3.4) L 08/21/22 16:37 [place] # (Auto) 0.64 K/uL (0.11-0.59) H 08/21/22 16:37 Eos # (Auto) 0.08 K/uL (0-0.50) 08/21/22 16:37 Baso # (Auto) 0.04 K/uL (0-0.2) 08/21/22 16:37 Immature Gran # (Auto) 0.06 K/uL (0.01-0.20) 08/21/22 16:37 Sodium 139 mmol/L (136-145) 08/21/22 16:37 Potassium 4.2 mmol/L (3.5-5.1) 08/21/22 16:37 Chloride 105 mmol/L (98-107) 08/21/22 16:37 Carbon Dioxide 26 mmol/L (21-32) 08/21/22 16:37 Anion Gap 8 (3-11) 08/21/22 16:37 BUN 30 mg/dl (6-23) H 08/21/22 16:37 Creatinine 1.52 mg/dl (0.6-1.4) H 08/21/22 16:37 Est Cr Clr Drug Dosing 36.8 ml/min 08/21/22 16:37 Est GFR ( Amer) 48.4 ml/min 08/21/22 16:37 Est GFR (Non-Af Amer) 41.8 ml/min 08/21/22 16:37 BUN/Creatinine Ratio 19.7 (10-20) 08/21/22 16:37 Glucose 132 mg/dl (70-99(Fasting)) H 08/21/22 16:37 Calcium 9.1 mg/dl (8.6-10.3) 08/21/22 16:37 Magnesium 1.7 mg/dl (1.7-2.4) 08/21/22 16:37 Total Bilirubin 1.1 mg/dl (0.2-1.0) H 08/21/22 16:37 AST 26 U/L (13-39) 08/21/22 16:37 ALT 22 U/L (7-52) 08/21/22 16:37 Alkaline Phosphatase 69 U/L (34-104) 08/21/22 16:37 Total Creatine Kinase 44 U/L (30-223) 08/21/22 16:37 Troponin I High Sens 26.7 pg/ml (0-20) H 08/21/22 16:37 Total Protein 6.2 gm/dl (6.0-8.3) 08/21/22 16:37 Albumin 3.7 gm/dl (3.4-5.0) 08/21/22 16:37 Globulin 2.5 gm/dl (2.5-4.0) 08/21/22 16:37 Albumin/Globulin Ratio 1.5 (0.9-2) 08/21/22 16:37 TSH 4.121 uIu/ml (0.300-4.500) 08/21/22 16:37 SARS-CoV-2, RNA, NAAT NEGATIVE (NEGATIVE) 08/21/22 17:08 Impressions Chest X-Ray 08/21/22 16:47 XR chest 1V portable HISTORY: 82 years-old Male near syncope COMPARISON: 06/06/2019 TECHNIQUE: AP view of the chest FINDINGS: Cardiac silhouette is enlarged. The occlusion device projects over the left heart border. No pneumothorax. Unchanged blunting of the costophrenic angles. No overt pulmonary edema or large pleural effusion. Degenerative changes of the shoulders and spine. IMPRESSION: Cardiomegaly without acute process. ACT 112: Negative or not required by law. The above report was generated using voice recognition software. It may contain grammatical, syntax or spelling errors. Electronically signed by: Jake Reyes M.D. 08/21/2022 5:24 PM Diagnostic Findings EKG as per my interpretation : Rate 75, A-fib, normal axis, septal infarct, nonspecific T wave abnormalities
[2022-08-21] MEDS: MAGNESIUM SULFATE / D5W 1 GM/100 ML BAG IV SCH ×2 (20:37→22:36)
[2022-08-21] MEDS ORDERED: GLUCAGON FOR INJ 1 MG VIAL SQ PRN (21:20)
[2022-08-21] MEDS ORDERED: traMADol HCL 50 MG TABLET PO PRN (21:20)
[2022-08-21] MEDS ORDERED: DEXTROSE 50% 50 ML SYRINGE IV PRN (21:20)
[2022-08-21] MEDS ORDERED: GLUCOSE 40% GEL 15 GM TUBE PO PRN (21:20)
[2022-08-21] MEDS ORDERED: GLUCOSE 10 TAB/TUBE PO PRN (21:20)
[2022-08-21] MEDS ORDERED: CARBOHYDRATES FOR HYPOGLYCEMIA PO PRN (21:20)
[2022-08-21] MEDS ORDERED: ACETAMINOPHEN 325 MG TAB PO PRN (21:20)
[2022-08-21 21:28] LABS: Lyme Ab IgG w/WB Rflx Negative (Negative); Lyme Ab IgM w/WB Rflx Negative (Negative)
[2022-08-21 22:01] LABS: BUN Creatinine Ratio 19.4 (10-20); Calcium 9.3 mg/dl (8.6-10.3); Creatinine Clr Calc Pharmacy 36.3 ml/min; Est GFR (African American) 51.7 ml/min; Est GFR (Non-African American) 44.6 ml/min; Potassium 4.4 mmol/L (3.5-5.1)
[2022-08-21] MEDS: GABAPENTIN 100 MG CAP PO SCH (22:23)
[2022-08-21] MEDS: INSULIN ASPART PER UNIT CHARGE SC SCH (22:23)
[2022-08-21] MEDS: HEPARIN SOD 5,000 UNIT/0.5 ML VIAL SQ SCH (22:24)
[2022-08-21] MEDS: SIMVASTATIN 10 MG TAB PO SCH (22:24)
[2022-08-21 23:39] LABS: Appearance Urine Clear (Clear); Bilirubin Urine Negative (Negative); Blood Urine Negative (Negative); Color Urine Yellow; Glucose Urine UA Negative (Negative); Ketones Urine Negative (Negative); Leukocyte Esterase Urine Negative (Negative); Nitrite Urine Negative (Negative); Protein Urine Negative (Negative); Urobilinogen Urine Negative (Negative); pH Urine 5.5 (4.5-7.5)
[2022-08-22] MEDS: LANTUS PER UNIT CHARGE SQ SCH ×2 (01:03→21:26)
[2022-08-22] MEDS ORDERED: SODIUM CHLORIDE 0.9% 1000ML 1,000 ML IV ONE (02:00)
[2022-08-22 04:14] LABS: Basophils # (auto) 0.04 K/uL (0-0.2); Basophils % (auto) 0.5 %; Eosinophils # (auto) 0.17 K/uL (0-0.50); Eosinophils % (auto) 1.9 %; Hematocrit (blood only) 37.9 % (42.0-52.0); Hemoglobin 12.3 g/dl (14.0-18.0); Immature Granulocytes # (auto) 0.03 K/uL (0.01-0.20); Immature Granulocytes % (auto) 0.3 %; Lymphocytes # (auto) 1.89 K/uL (1.2-3.4); Lymphocytes % (auto) 21.4 %; Mean Corpuscular Hemoglobin 30.5 pg (25.0-34.0); Mean Corpuscular Hgb Conc 32.5 g/dL (32.0-36.0); Mean Platelet Volume 10.5 fL (9.4-12.4); Monocytes # (auto) 0.65 K/uL (0.11-0.59); Monocytes % (auto) 7.3 %; Neutrophils # (auto) 6.07 K/uL (1.40-6.50); Neutrophils % (auto) 68.6 %; Platelet Count 203 K/uL (130-400); RDW Coefficient of Variation 13.5 % (11.5-14.5); RDW Standard Deviation 45.8 fL (36.4-46.3); Red Blood Count 4.03 M/uL (4.70-6.10); Reticulocytes # 0.08 10^6/uL (0.02-0.10); White Blood Count 8.85 K/ul (4.8-10.8)
[2022-08-22 04:26] LABS: BUN Creatinine Ratio 21.3 (10-20); Calcium 8.6 mg/dl (8.6-10.3); Creatinine Clr Calc Pharmacy 41.2 ml/min; Est GFR (African American) 60.2 ml/min; Est GFR (Non-African American) 51.9 ml/min; Potassium 4.2 mmol/L (3.5-5.1)
[2022-08-22 04:45] LABS: Ferritin 37.3 ng/ml (8-388)
[2022-08-22] MEDS: HEPARIN SOD 5,000 UNIT/0.5 ML VIAL SQ SCH ×3 (06:27→21:27)
[2022-08-22] MEDS: PANTOprazole 40 MG TAB PO SCH (07:59)
[2022-08-22] MEDS: GABAPENTIN 100 MG CAP PO SCH ×4 (07:59→20:02)
[2022-08-22] MEDS: ASPIRIN 81 MG ECTAB PO SCH (07:59)
[2022-08-22] MEDS: METOPROLOL SUCC 25MG EXT REL TAB PO SCH (07:59)
[2022-08-22] MEDS: allopurinoL 100 MG TAB PO SCH (07:59)
[2022-08-22] MEDS: INSULIN ASPART PER UNIT CHARGE SC SCH ×4 (08:02→20:27)
--- NOTE | 2022-08-22 15:23 | Hospitalist Progress Note ---
Date of Service August 22, 2022 Assessment & Plan (1) Near syncope: Plan: Secondary to dehydration with orthostasis [place] and did not take much fluid Noted to be low blood pressure in the ambulance and in the emergency room Received intravenous fluid and has been feeling much better this morning Orthostatic vitals were positive for blood pressure without any symptoms Advised to drink more fluid Appropriate to decrease maintenance Toprol-XL dose for now from 75 mg to 25 mg daily given borderline BP. We will get PT and OT evaluation and possible discharge tomorrow ARF on CKD secondary to above Received intravenous fluid Creatinine has been normalized from 1.52 to 1.27 this morning Advised to drink more fluid New onset anemia, FOBT done at the ER was negative Hemoglobin remains normal at 12.3 A-fib status post Watchman, rate controlled, not on anticoagulation due to bleeding risk/history ischemic colitis EKG seems to be low voltage which has been a chronic problem No acute symptoms Hyperlipidemia, on statin Rx Asthma/restrictive lung disease as per records, stable Hx colon cancer status post surgery DM2 on oral medications, reasonable control as of recent hemoglobin A1c of 7.4 last May 2022 Basal bolus insulin, ISS BG goal 1 10-1 40, carb count coverage Gout, improved on recent higher dose of allopurinol DVT prophylaxis. Heparin subcu Full code Admission and Anticipated Discharge Date Admission Date: August 21, 2022 Subjective 08/22/2022 The patient was seen and examined in medical telemetry unit He was admitted with near syncope and the golf field He did not have much fluid intake and was trying to finish 9 holes He got dizzy and was about to fall Noted to have low blood pressure in the ambulance Review of Systems Review of Systems: All systems reviewed and are unremarkable except as noted below Physical Exam Physical Exam: Lying in bed comfortably Constitutional: well developed, well nourished and average body habitus; not ill appearing Eyes: PERRL, conjunctivae normal, anicteric sclerae ENMT: external ear and nose normal, oropharynx normal Neck: trachea midline, no thyromegaly Respiratory: no respiratory distress Auscultation: lungs clear to auscultation bilaterally Cardiovascular: Rate/Rhythm: + irregularly irregular Heart Sounds: normal S1, normal S2 and + murmur Extremities: no edema Gastrointestinal (Abdomen): Inspection/Auscultation: normal bowel sounds; abdomen not distended Percussion/Palpation: abdomen soft; abdomen nontender Musculoskeletal: No acute arthritis involving any of the joint Neurologic: Alert, awake and oriented x3. No focal sensory or motor deficit appreciated Psychiatric: A+Ox3, euthymic affect Lymphatic: no cervical or axillary lymphadenopathy Results & Data Results & Data Vital Signs (Past 12 Hours) Vital Signs Temp Pulse Pulse Resp BP Pulse Ox O2 Del Method 08/22/22 12:05 36.5 C 79 18 147/79 H 94 Room Air 08/22/22 08:11 36.4 C L 65 18 118/75 96 Room Air 08/22/22 08:10 36.4 C L 65 18 118/75 96 Room Air 08/22/22 07:16 65 Laboratory Results Short CBC 08/21/22 08/22/22 Range/Units 16:37 03:39 WBC 9.82 8.85 (4.8-10.8) K/ul Hgb 12.6 L 12.3 L (14.0-18.0) g/dl Hct 38.1 L 37.9 L (42.0-52.0) % Plt Count 233 203 (130-400) K/uL BMP 08/21/22 08/21/22 08/22/22 16:37 21:28 03:39 Sodium 139 139 141 Potassium 4.2 4.4 4.2 Chloride 105 106 108 H Carbon Dioxide 26 25 26 BUN 30 H 28 H 27 H Creatinine 1.52 H 1.44 H 1.27 Glucose 132 H 229 H 71 Calcium 9.1 9.3 8.6 Cardiac Enzymes 08/21/22 08/21/22 Range/Units 16:37 21:28 Total Creatine Kinase 44 43 (30-223) U/L Liver Function 08/21/22 Range/Units 16:37 Total Bilirubin 1.1 H (0.2-1.0) mg/dl AST 26 (13-39) U/L ALT 22 (7-52) U/L Alkaline Phosphatase 69 (34-104) U/L Albumin 3.7 (3.4-5.0) gm/dl Urine 08/21/22 Range/Units 23:15 Urine Color Yellow Urine Appearance Clear (Clear) Urine pH 5.5 (4.5-7.5) Ur Specific [place] 1.010 (1.000-1.030) Urine Protein Negative (Negative) Urine Glucose (UA) Negative (Negative) Medications Administered Current Inpatient Medications Acetaminophen (Acetaminophen 325 Mg Tab) 650 mg PO Q4H PRN PRN Reason: Pain or Fever Stop: 09/20/22 21:19 Allopurinol ([facility]op[facility]ol 100 Mg Tab) [facility] [place] Stop: 09/21/22 08:59 Last Admin: 08/22/22 07:59 Dose: 200 mg Aspirin (Aspirin 81 Mg Ectab) 81 [facility] [place] Stop: 09/21/22 08:59 Last Admin: 08/22/22 07:59 Dose: 81 mg Dextrose (Dextrose 50% 50 Ml Syringe) 25 - 50 ml IV UD PRN; Protocol PRN Reason: Hypoglycemia Protocol Stop: 09/20/22 21:19 Gabapentin (Gabapentin 100 Mg Cap) 100 mg PO QID [facility] Stop: 09/20/22 21:19 Last Admin: 08/22/22 12:29 Dose: 100 mg Glucagon (Glucagon For Inj 1 Mg Vial) 1 mg SQ UD PRN; Protocol PRN Reason: Hypoglycemia Protocol Stop: 09/20/22 21:19 Glucose (Glucose 10 Tab/Tube) 4 - 8 tab PO UD PRN; Protocol PRN Reason: Hypoglycemia Treatment Stop: 09/20/22 21:19 Glucose (Glucose 40% Gel 15 Gm Tube) 15 - 30 gm PO UD PRN; Protocol PRN Reason: Hypoglycemia Protocol Stop: 09/20/22 21:19 Heparin Sodium (Porcine) (Heparin Sod 5,000 Unit/0.5 Ml Vial) 5,000 units SQ Q8 [facility] Stop: 09/20/22 21:59 Last Admin: 08/22/22 06:27 Dose: 5,000 units Insulin Aspart (Insulin Aspart Per Unit Charge) 0 units SC ACHS [facility] Stop: 09/20/22 21:19 Last Admin: 08/22/22 12:33 Dose: 3 units Insulin Glargine (Lantus Per Unit Charge) 5 units SQ HS [facility] Stop: 09/21/22 00:34 Last Admin: 08/22/22 01:03 Dose: 5 units Metoprolol Succinate (Metoprolol Succ 25mg Ext Rel Tab) [facility] [place] Stop: 09/21/22 08:59 Last Admin: 08/22/22 07:59 Dose: 25 mg Miscellaneous (Carbohydrates For Hypoglycemia ) 15 - 30 gm PO UD PRN PRN Reason: Hypoglycemia Protocol Stop: 09/20/22 21:19 Pantoprazole Sodium (Pantoprazole 40 Mg Tab) 40 mg PO QAM [facility] Stop: 09/21/22 08:59 Last Admin: 08/22/22 07:59 Dose: 40 mg Simvastatin (Simvastatin 10 Mg Tab) 10 mg PO HS [facility] Stop: 09/20/22 21:19 Last Admin: 08/21/22 22:24 Dose: 10 mg Tramadol HCl (Tramadol Hcl 50 Mg Tablet) 25 - 50 mg PO Q4H PRN PRN Reason: Pain Stop: 09/20/22 21:19
[2022-08-22] MEDS: SIMVASTATIN 10 MG TAB PO SCH (20:02)
[2022-08-23] MEDS: HEPARIN SOD 5,000 UNIT/0.5 ML VIAL SQ SCH (05:19)
--- NOTE | 2022-08-23 05:24 | Electrocardiogram Report ---
Test Reason : Blood Pressure : / mmHG Vent. Rate : 075 BPM Atrial Rate : 000 BPM P-R Int : 000 ms QRS Dur : 072 ms QT Int : 408 ms P-R-T Axes : 000 009 059 degrees QTc Int : 455 ms Atrial fibrillation Low voltage QRS Cannot rule out Anterior infarct , age undetermined Abnormal ECG When compared with ECG of 23-DEC-2021 10:41, Nonspecific T wave abnormality, worse in Lateral leads Confirmed by Anderson Wu ([id number]) on 08/23/2022 5:24:08 AM Referred By: REFERRED SELF Confirmed By:Anderson Wu
[2022-08-23] MEDS: PANTOprazole 40 MG TAB PO SCH (08:34)
[2022-08-23] MEDS: METOPROLOL SUCC 25MG EXT REL TAB PO SCH (08:34)
[2022-08-23] MEDS: ASPIRIN 81 MG ECTAB PO SCH (08:34)
[2022-08-23] MEDS: allopurinoL 100 MG TAB PO SCH (08:34)
[2022-08-23] MEDS: GABAPENTIN 100 MG CAP PO SCH ×2 (08:35→12:07)
[2022-08-23] MEDS: INSULIN ASPART PER UNIT CHARGE SC SCH ×2 (08:38→12:09)
[2022-08-23 08:45] LABS: Basophils # (auto) 0.04 K/uL (0-0.2); Basophils % (auto) 0.4 %; Eosinophils # (auto) 0.12 K/uL (0-0.50); Eosinophils % (auto) 1.3 %; Hematocrit (blood only) 43.3 % (42.0-52.0); Immature Granulocytes # (auto) 0.05 K/uL (0.01-0.20); Immature Granulocytes % (auto) 0.5 %; Lymphocytes # (auto) 1.22 K/uL (1.2-3.4); Lymphocytes % (auto) 12.9 %; Mean Corpuscular Hemoglobin 30.6 pg (25.0-34.0); Mean Corpuscular Hgb Conc 32.3 g/dL (32.0-36.0); Mean Corpuscular Volume 94.7 fL (80.0-100.0); Mean Platelet Volume 10.5 fL (9.4-12.4); Monocytes # (auto) 0.57 K/uL (0.11-0.59); Neutrophils # (auto) 7.43 K/uL (1.40-6.50); Neutrophils % (auto) 78.9 %; Platelet Count 212 K/uL (130-400); RDW Coefficient of Variation 13.7 % (11.5-14.5); RDW Standard Deviation 47.1 fL (36.4-46.3); Red Blood Count 4.57 M/uL (4.70-6.10); White Blood Count 9.43 K/ul (4.8-10.8)
[2022-08-23 09:57] LABS: Calcium 9.3 mg/dl (8.6-10.3); Potassium 4.3 mmol/L (3.5-5.1)
[2022-08-23 10:03] LABS: BUN Creatinine Ratio 19.1 (10-20); Creatinine Clr Calc Pharmacy 45.5 ml/min; Est GFR (African American) 67.8 ml/min; Est GFR (Non-African American) 58.5 ml/min
--- NOTE | 2022-08-23 11:13 | Hospitalist Progress Note ---
Date of Service August 23, 2022 Assessment & Plan (1) Near syncope: Plan: Secondary to dehydration with orthostasis [place] and did not take much fluid Noted to be low blood pressure in the ambulance and in the emergency room Received intravenous fluid and has been feeling much better this morning Orthostatic vitals were positive for blood pressure without any symptoms Advised to drink more fluid Appropriate to decrease maintenance Toprol-XL dose for now from 75 mg to 25 mg daily given borderline BP. We will get PT and OT evaluation and possible discharge tomorrow PT cleared him to go home Has had 2 steps O2 saturation test and he does not require any oxygen to go ARF on CKD secondary to above Received intravenous fluid Creatinine has been normalized from 1.52 to 1.27 this morning Advised to drink more fluid Repeat PRP remained unremarkable New onset anemia, FOBT done at the ER was negative Hemoglobin remains normal at 12.3 A-fib status post Watchman, rate controlled, not on anticoagulation due to bleeding risk/history ischemic colitis EKG seems to be low voltage which has been a chronic problem No acute symptoms Remains a little tachycardic but no other symptoms Hyperlipidemia, on statin Rx Asthma/restrictive lung disease as per records, stable Hx colon cancer status post surgery DM2 on oral medications, reasonable control as of recent hemoglobin A1c of 7.4 last May 2022 Basal bolus insulin, ISS BG goal 1 10-1 40, carb count coverage Gout, improved on recent higher dose of allopurinol DVT prophylaxis. Heparin subcu Full code Discharge home this afternoon Admission and Anticipated Discharge Date Admission Date: August 21, 2022 Subjective 08/22/2022 The patient was seen and examined in medical telemetry unit He was admitted with near syncope and the [place] He did not have much fluid intake and was trying to finish 9 holes He got dizzy and was about to fall Noted to have low blood pressure in the ambulance 08/23/2022 The patient was seen and examined in medical telemetry unit He has been feeling much better and has had physical therapy without any problem He denies any other symptoms He passed 2 steps O2 saturation test Will be discharged this afternoon Review of Systems Review of Systems: All systems reviewed and are unremarkable except as noted below Physical Exam Physical Exam: Lying in bed comfortably Constitutional: well developed, well nourished and average body habitus; not ill appearing Eyes: PERRL, conjunctivae normal, anicteric sclerae ENMT: external ear and nose normal, oropharynx normal Neck: trachea midline, no thyromegaly Respiratory: no respiratory distress Auscultation: lungs clear to auscultation bilaterally Cardiovascular: Rate/Rhythm: + irregularly irregular Heart Sounds: normal S1, normal S2 and + murmur Extremities: no edema Gastrointestinal (Abdomen): Inspection/Auscultation: normal bowel sounds; abdomen not distended Percussion/Palpation: abdomen soft; abdomen nontender Musculoskeletal: No acute arthritis involving any of the joint Neurologic: normal touch/pain/proprioception and moves all extremities; no focal motor deficits Psychiatric: A+Ox3, euthymic affect Lymphatic: no cervical or axillary lymphadenopathy Results & Data Results & Data Vital Signs (Past 12 Hours) Vital Signs Temp Pulse Pulse Pulse Pulse Pulse Resp 08/23/22 10:59 118 H 91 H 90 08/23/22 08:41 08/23/22 08:02 36.7 C 78 20 08/23/22 06:55 77 08/23/22 03:00 36.5 C 77 18 08/23/22 00:03 83 Resp Resp Resp BP BP Pulse Ox Pulse Ox 08/23/22 10:59 20 20 18 93 08/23/22 08:41 08/23/22 08:02 155/95 H 94 08/23/22 06:55 08/23/22 03:00 130/82 94 08/23/22 00:03 Pulse Ox Pulse Ox O2 Del Method 08/23/22 10:59 95 97 08/23/22 08:41 Room Air 08/23/22 08:02 Room Air 08/23/22 06:55 08/23/22 03:00 Room Air 08/23/22 00:03 Laboratory Results Short CBC 08/23/22 Range/Units 07:55 WBC 9.43 (4.8-10.8) K/ul Hgb 14.0 (14.0-18.0) g/dl Hct 43.3 (42.0-52.0) % Plt Count 212 (130-400) K/uL BMP 08/23/22 07:55 Sodium 140 Potassium 4.3 Chloride 106 Carbon Dioxide 26 BUN 22 Creatinine 1.15 Glucose 114 H Calcium 9.3 Medications Administered Current Inpatient Medications Acetaminophen (Acetaminophen 325 Mg Tab) 650 mg PO Q4H PRN PRN Reason: Pain or Fever Stop: 09/20/22 21:19 Allopurinol (Allopurinol 100 Mg Tab) 200 mg PO QAM [facility] Stop: 09/21/22 08:59 Last Admin: 08/23/22 08:34 Dose: 200 mg Aspirin (Aspirin 81 Mg Ectab) 81 mg PO QAM [facility] Stop: 09/21/22 08:59 Last Admin: 08/23/22 08:34 Dose: 81 mg Dextrose (Dextrose 50% 50 Ml Syringe) 25 - 50 ml IV UD PRN; Protocol PRN Reason: Hypoglycemia Protocol Stop: 09/20/22 21:19 Gabapentin (Gabapentin 100 Mg Cap) 100 mg PO QID [facility] Stop: 09/20/22 21:19 Last Admin: 08/23/22 08:35 Dose: 100 mg Glucagon (Glucagon For Inj 1 Mg Vial) 1 mg SQ UD PRN; Protocol PRN Reason: Hypoglycemia Protocol Stop: 09/20/22 21:19 Glucose (Glucose 10 Tab/Tube) 4 - 8 tab PO UD PRN; Protocol PRN Reason: Hypoglycemia Treatment Stop: 09/20/22 21:19 Glucose (Glucose 40% Gel 15 Gm Tube) 15 - 30 gm PO UD PRN; Protocol PRN Reason: Hypoglycemia Protocol Stop: 09/20/22 21:19 Heparin Sodium (Porcine) (Heparin Sod 5,000 Unit/0.5 Ml Vial) 5,000 units SQ Q8 [facility] Stop: 09/20/22 21:59 Last Admin: 08/23/22 05:19 Dose: Not Given Insulin Aspart (Insulin Aspart Per Unit Charge) 0 units SC ACHS [facility] Stop: 09/20/22 21:19 Last Admin: 08/23/22 08:38 Dose: 2 units Insulin Glargine (Lantus Per Unit Charge) 5 units SQ HS [facility] Stop: 09/21/22 00:34 Last Admin: 08/22/22 21:26 Dose: 5 units Metoprolol Succinate (Metoprolol Succ 25mg Ext Rel Tab) 25 mg PO QAM [facility] Stop: 09/21/22 08:59 Last Admin: 08/23/22 08:34 Dose: 25 mg Miscellaneous (Carbohydrates For Hypoglycemia ) 15 - 30 gm PO UD PRN PRN Reason: Hypoglycemia Protocol Stop: 09/20/22 21:19 Pantoprazole Sodium (Pantoprazole 40 Mg Tab) 40 mg PO QAM [facility] Stop: 09/21/22 08:59 Last Admin: 08/23/22 08:34 Dose: 40 mg Simvastatin (Simvastatin 10 Mg Tab) 10 mg PO HS [facility] Stop: 09/20/22 21:19 Last Admin: 08/22/22 20:02 Dose: 10 mg Tramadol HCl (Tramadol Hcl 50 Mg Tablet) 25 - 50 mg PO Q4H PRN PRN Reason: Pain Stop: 09/20/22 21:19
--- NOTE | 2022-08-24 08:09 | Discharge Summary ---
Date of Service August 23, 2022 Admission HPI Per Admitting Provider History obtained from patient and records. Medical history significant for A-fib status post Watchman, HTN, hyperlipidemia, asthma/restrictive lung disease as per records, colon cancer status post surgery, history ischemic colitis, DM2 on oral medications, CRI (baseline creatinine 1.4), GERD, gout, essential tremors. Last confinement December 2021 for ischemic colitis status post antibiotic Rx. Patient noted worsening generalized weakness, lightheadedness during his golf game today. Patient not playing as well. No chest pain, no SOB, no headache, no abdominal pain, no black/no bloody stools, no dysuria. Patient felt like he was going to pass out. Patient saw "black with red spots' on both eyes for a moment. EMS [place] to golf [place]. BSG noted to be 140s. Patient brought to ER for evaluation. Lowest SBP of 90s noted at the ER. Patient feels much better now after IVF bolus administered at the ER. Medical History as above Surgical History : Hand/finger surgery, prostate biopsy, partial colectomy with anastomosis, left atrial appendage/Watchman device placement, sinus surgery Family History : Breast cancer, asthma, DM, cirrhosis, heart disease, stomach ca ncer, stroke Personal/Social history : Non-smoker, no EtOH intake, retired dentist Admission Exam Per Admitting Provider Physical Exam: GENERAL: Comfortable, slightly hard of hearing, pleasant, no respiratory distress SKIN: Normal color, warm HEENT: Alopecia, bespectacled, [place] palpebral conjunctivae, no ptosis, dry buccal mucosa NECK : Supple, no tenderness CHEST : CTA, no tenderness HEART : Irregular, no obvious murmurs ABDOMEN: Some distention, nontender RECTAL : Intact sphincter, brown stool (FOBT negative) EXTREMITIES : No LE swelling/tenderness, no other conspicuous deformities noted NEUROLOGIC : Coherent, no facial asymmetry, intention tremors of the hands noted, gait and stance not assessed Principal Diagnosis Presyncope, dehydration with JULIET, high blood pressure, atrial fibrillation status post Watchman procedure Discharge Exam Lying in bed comfortably Constitutional well developed, well nourished and average body habitus; not ill appearing Eyes PERRL, conjunctivae normal, anicteric sclerae ENMT external ear and nose normal, oropharynx normal Neck trachea midline, no thyromegaly Respiratory no respiratory distress Auscultation: lungs clear to auscultation bilaterally Cardiovascular Rate/Rhythm: + irregularly irregular Heart Sounds: normal S1, normal S2 and + murmur Extremities: no edema Gastrointestinal (Abdomen) Inspection/Auscultation: normal bowel sounds; abdomen not distended Percussion/Palpation: abdomen soft; abdomen nontender Neurologic normal touch/pain/proprioception and moves all extremities; no focal motor deficits Psychiatric A+Ox3, euthymic affect Lymphatic no cervical or axillary lymphadenopathy Discharge Data Allergies Allergy/AdvReac Type Severity Reaction Status Date / Time meperidine [From Demerol] Allergy Intermediate Vomiting Verified 08/21/22 17:47 oxycodone Allergy Intermediate Hives Verified 08/21/22 17:47 Penicillins Allergy Intermediate Rash Verified 08/21/22 17:47 Consultations 08/21/22 19:15 ED Decision to Admit Stat Hospital Course (1) Near syncope: Secondary to dehydration with orthostasis [place] and did not take much fluid Noted to be low blood pressure in the ambulance and in the emergency room Received intravenous fluid and has been feeling much better this morning Orthostatic vitals were positive for blood pressure without any symptoms Advised to drink more fluid Appropriate to decrease maintenance Toprol-XL dose for now from 75 mg to 25 mg daily given borderline BP. We will get PT and OT evaluation and possible discharge tomorrow PT cleared him to go home Has had 2 steps O2 saturation test and he does not require any oxygen to go AR[facility] on CKD secondary to above Received intravenous fluid Creatinine has been normalized from 1.52 to 1.27 this morning Advised to drink more fluid Repeat PRP remained unremarkable New onset anemia, FOBT done at the ER was negative Hemoglobin remains normal at 12.3 A-fib status post Watchman, rate controlled, not on anticoagulation due to bleeding risk/history ischemic colitis EKG seems to be low voltage which has been a chronic problem No acute symptoms Remains a little tachycardic but no other symptoms Hyperlipidemia, on statin Rx Asthma/restrictive lung disease as per records, stable Hx colon cancer status post surgery DM2 on oral medications, reasonable control as of recent hemoglobin A1c of 7.4 last May 2022 Basal bolus insulin, ISS BG goal 1 10-1 40, carb count coverage Gout, improved on recent higher dose of allopurinol DVT prophylaxis. Heparin subcu Full code Discharge home this afternoon Total Time Total Time Spent Total Time Spent (In Minutes): 35 minutes Discharge Plan Discharge Items Patient Disposition: Home - Self-Care Reason For Visit: SYNCOPE Discharge Diagnosis: Presyncope, dehydration with JULIET, high blood pressure, atrial fibrillation status post Watchman procedure Condition on Discharge: Good Activity: Resume your previous activity Non-emergency contact: Primary Care Provider Call non-emergency contact if: you have any medication questions and your symptoms worsen Follow-up/Referrals: Vijay Almanzar MD [Primary Care Provider] - (Date & Time 08/29/2022 3:20 PM Provider Vijay Almanzar MD Department [facility] ) Diet: Heart Healthy and Low Sodium (2gm) Addtl Attending Provider Instructions: Please take precautions to avoid falls No change in new medications Try to drink more fluid when you are specially outside Please keep appointment with your healthcare provider Pending Studies at Discharge: No Stand-Alone Forms: My [employer], Smoking Cessation Medications and DC Order Prescriptions: Continued metoprolol succinate 50 mg Tablet Extended Release 24 Hr 50 mg PO QAM Rx Instructions: TOTAL DOSE 75 MG--TAKES WITH 25 MG TAB. simvastatin 10 mg Tablet 10 mg PO HS omeprazole 40 mg Capsule,Delayed Release(Dr/Ec) 40 mg PO QAM glimepiride 1 mg Tablet 1 mg PO HS lisinopril-hydrochlorothiazide 20-25 mg Tablet 1 tab PO QAM metoprolol succinate 25 mg Tablet Extended Release 24 Hr 25 mg PO QAM Rx Instructions: TOTAL DOSE 75 MG--TAKES WITH 50 MG TAB.with 50mg to equal 75mg aspirin 81 mg Tablet,Delayed Release (Dr/Ec) 81 mg PO QAM gabapentin 100 mg capsule 100 mg PO QID Tradjenta 5 mg tablet 5 mg PO QAM zinc acetate 50 mg (zinc) Capsule 50 mg PO Q OTHER DAY cholecalciferol (vitamin D3) [Vitamin D3] 25 mcg (1,000 unit) Tablet,Chewable 25 mcg PO QAM allopurinol 100 mg Tablet 200 mg PO QAM magnesium oxide 400 mg magnesium Tablet 400 mg PO HS Discharge Orders: Discharge Order (Routine); Ordered 08/23/22 Ordered By: Giles Kang Admission Data Admit Date/Time: 08/21/22 20:23 Attending Provider: Giles Kang Admit Provider: Kenyon Bonilla Primary Care Provider: Vijay Almanzar Other Providers: Kenyon Bonilla Other Interventions: Discharge Summary Assessment (RN) Last Done: 08/23/22 12:02
== END 2022-08-23 13:50 | disposition home or self-care (01) ==
LOC: 2N 16:24 → ED 16:24 → 2N 21:23

== ENCOUNTER 2023-08-11 15:13 | Inpatient (IN) ==
--- NOTE | 2023-08-11 15:46 | Emergency Department Note ---
Impression & Plan Sepsis, Acute renal failure, Falls, Acute dehydration, Elevated troponin ED Provider Note NAME: ANNA NELSON AGE: 83 SEX: M : 1940 ARRIVES VIA: Ambulance INFORMANT: Patient, ED PROVIDER(S): Morris Rodriguez MD CHIEF COMPLAINT: Falls, tremors MEDICAL DECISION MAKING: Patient presents due to concern for falls and associated tremors. The patient states that he did strike his head but lightly. Patient denies any fevers or chills but reportedly has felt hot and cold. IV was established and blood work was obtained. Given the patient's recent prostate biopsy the patient was ordered empiric IV Rocephin and IV fluids. Patient's blood work shows a white count of 23 with a hemoglobin of 12.7 normal platelet count. Patient does have acute renal failure with creatinine 4.22 baseline is less than 2. Troponin 250 likely demand as the patient denies any chest pains or shortness of breath. Urinalysis does show concern for the possibility of infection. Patient did have a CT of the abdomen pelvis noncontrast ordered. Initial lactate of 3.3. I did speak with Dr. Salgado and the patient was admitted to the medicine service. patient CT of the abdomen pelvis shows right renal calculi but no ureteral or hydronephrosis. No bowel obstruction there is some bladder wall thickening with adjacent stranding although similar on prior CT. Small bilateral pleural effusions body wall edema and small moderate abdominal ascites cholelithiasis noted. Patient's blood pressures have been soft 90s over 50s and 60s as well as systolics up to 100. After receiving 1500 of IV fluids in the patient's CT which does show pleural effusions and body wall edema the patient was ordered additional IV fluids but did not initially receive 30 cc/kg bolus given the concern for acute renal failure and pleural effusions. I did convey the lower blood pressures to the on-call hospitalist service and did speak with Dr. Philip. Patient was also ordered Flagyl and the patient was admitted to medicine service. Patient's lactate did improve to 2.1. Of note the patient does have left greater than right lower extremity swelling but the patient states that this is chronic in nature. Patient has no chest pain or shortness of breath. Discussion w/ other healthcare providers: Dr. Mazariegos inpatient medicine service Dr. Philip inpatient medicine service Prior /Outside records reviewed: None Differential diagnosis: Infection, dehydration, metabolic abnormality, hypo/hyperglycemia, electrolyte imbalance, anemia, UTI, pneumonia, thyroid dysfunction among others were considered. Diagnostics, as interpreted by me: ECG: A-fib, rate of 85, normal QRS, normal axis no ST elevations nonspecific ST abnormality lateral leads. No significant change for comparison August 21, 2022 Cardiac monitoring: An order was placed for continuous cardiac monitoring. The monitor shows a rate of 80 with irregular irregular rhythm. Patient was placed on pulse oximetry Medical decision rules: None Imaging studies: I informally interpreted the patient's chest x-ray does not show obvious pneumonia or pneumothorax with formal report to follow. HPI: Patient presents due to concern for weakness fatigue falls and tremors. Patient states that he did fall about 4 times yesterday. Patient did have a recent prostate biopsy completed with Dr. Baum on . Patient does have a known history of prior tremors and states that they have been worsening. The patient states that his falls primarily occur when trying to pivot. The patient does believe that he struck the back of his head but was very lightly on the carpet no LOC. The patient does have a history of A-fib but is not anticoagulated as the patient had a prior Watchman procedure. Patient has had dry heaves and associated nausea but no active vomiting. Patient does feel more weak and fatigued. Patient states that he is still making urine. No blood in the urine. PAST MEDICAL HISTORY: See Below PAST SURGICAL HISTORY: See Below SOCIAL HISTORY: See Below HOME MEDICATIONS: See Below ALLERGIES: See Below VITALS: See Below PHYSICAL EXAMINATION: GENERAL: NAD, non-toxic. Wearing glasses. EYE EXAM: Normal conjunctiva. PERRL, no anisocoria and EOM's grossly intact w/o pain. OROPHARYNX: Dry mucus membranes, grossly normal dentition. NECK: Trachea midline, no stridor. Irregularly irregular LUNGS: Crackles at the right base. Normal chest wall mechanics. HEART: NSR, no MRG. ABDOMEN: Abdomen soft, non-tender, no masses, no rebound or guarding. BACK: No CVA TTP. SKIN: No rashes and no bruising. UPPER EXTREMITIES: Upper extremities are grossly normal. LOWER EXTREMITIES: Grossly normal, left greater than right lower extremity swelling with pretibial edema. NEURO EXAM: A&O x3, cranial nerves II-XII grossly intact, normal speech, moves all 4 extremities. Past Med/Surg History Medical History Elevated prostate specific antigen (PSA) History of COVID-04 Mar 2020 > not hospitalized > mild loss of smell, fatigue TIA (transient ischemic attack) inconclusive per pt, no specific event Restrictive lung disease Diabetes mellitus, type II CKD (chronic kidney disease), stage III Peyronie's disease Urethral stricture in male Stone in kidney none at present per pt Elevated PSA BPH loc w urin obs/LUTS Hematuria Osteoarthritis Lumbar stenosis Cervical stenosis of spine BPH (benign prostatic hyperplasia) History of ischemic colitis Diabetes mellitus, type 2 Colon cancer 1995--sx Hearing deficit Essential tremor Migraine ocular per pt, gabapentin for this Hyperlipidemia Hypertension Atrial fibrillation metoprolol > follows with Dr. Muñiz Chronic obstructive pulmonary disease inhaler/nebulizer prn Asthma rare inhaler/nebulizer use Surgical History History of ankle fusion right ankle History of carpal tunnel release of both wrists History of repair of right rotator cuff x2 History of arthroscopy of left knee x2 History of prostate surgery greenlight laser History of prostate biopsy benign Hx of vasectomy History of colonoscopy History of esophagogastroduodenoscopy (EGD) History of bowel resection 1995 History of tonsillectomy History of endoscopic sinus surgery History of transesophageal echocardiography (ADALGISA) x2 History of cardioversion Presence of Watchman left atrial appendage closure device 09/05/2018 @ [facility] [place] Family History Brother Family history of diabetes mellitus Mother Family history of diabetes mellitus Father Family history of stomach cancer Grandfather (Paternal) Family history of stomach cancer Other No family history of adverse response to anesthesia Social History Smoking Status: Never smoker Second Hand Exposure: No; Do You Dip or Chew Tobacco: No; Tobacco Cessation Education Requested by Patient: No Hx Alcohol Use: Yes Alcohol type: other Hx Substance Use: No Preferred Language: Turkmen Communication Ability: Effective Toll Bridge Attendant Required: No Beliefs That Will Affect Care: None Current Living Situation: Spouse Other Information That Helps Us Care for You: No Feels Safe at Home: Yes Safety Concerns: Feels Safe At This Time Assistive Devices: Walker Allergies Allergies Allergy/AdvReac Type Severity Reaction Status Date / Time meperidine [From Demerol] Allergy Intermediate Vomiting Verified 08/11/23 17:07 oxycodone Allergy Intermediate Hives Verified 08/11/23 17:07 Penicillins Allergy Intermediate Rash Verified 08/11/23 17:07 Home Meds Home Medications Medication Instructions Recorded Confirmed glimepiride 1 mg tablet 1 mg PO HS 02/07/19 08/11/23 lisinopril 20 1 tab PO QAM 02/07/19 08/11/23 mg-hydrochlorothiazide 25 mg tablet omeprazole 40 mg capsule,delayed 40 mg PO QAM 02/07/19 08/11/23 release simvastatin 10 mg tablet 10 mg PO HS 02/07/19 08/11/23 aspirin 81 mg tablet,delayed 81 mg PO QAM 12/23/21 08/11/23 release gabapentin 100 mg capsule See Rx Instructions .Route .COMPLEX 12/23/21 08/11/23 linagliptin 5 mg tablet (Tradjenta) 5 mg PO QAM 12/23/21 08/11/23 cholecalciferol (vitamin D3) 25 25 mcg PO QAM 02/09/22 08/11/23 mcg (1,000 unit) chewable tablet (Vitamin D3) zinc acetate 50 mg (zinc) capsule 50 mg PO Q OTHER DAY 02/09/22 08/11/23 allopurinol 100 mg tablet 200 mg PO QAM 08/21/22 08/11/23 magnesium oxide 400 mg PO HS 08/21/22 08/11/23 metoprolol succinate 25 mg 25 mg PO BID 08/11/23 08/11/23 tablet,extended release 24 hr Previous Rx's Medication Instructions Recorded alfuzosin 10 mg tablet,extended 10 mg PO DAILY #30 tabs 08/09/23 release 24 hr (Uroxatral) Results & Data (ED) Vital Signs Vital Signs - 24 hr 08/11/23 15:21 08/11/23 16:11 08/11/23 16:11 Temperature 36.8 C Temperature Source Oral Pulse Rate 83 81 Pulse Rate [Apical] 81 Respiratory Rate 18 18 20 Respiratory Effort / Characteristics Non-Labored Spontaneous Respiratory Depth Normal Blood Pressure 117/75 Blood Pressure [Right Arm] 102/58 L Blood Pressure Mean 89 Blood Pressure Mean [Right Arm] 72 Blood Pressure Position Sitting Pulse Oximetry 97 94 94 Oxygen Delivery Method Room Air Room Air Room Air Sepsis Recent Fever Within 48 Hours No Sepsis New/Unexplained Change in Mental Status No Sepsis Action Taken by Nursing No Action Required 08/11/23 16:16 08/11/23 16:30 08/11/23 17:00 Temperature Temperature Source Pulse Rate 88 Pulse Rate [Apical] 84 81 Respiratory Rate 18 20 Respiratory Effort / Characteristics Respiratory Depth Blood Pressure Blood Pressure [Right Arm] 101/54 L 99/66 L Blood Pressure Mean Blood Pressure Mean [Right Arm] 69 77 Blood Pressure Position Pulse Oximetry 94 95 Oxygen Delivery Method Room Air Room Air Sepsis Recent Fever Within 48 Hours Sepsis New/Unexplained Change in Mental Status Sepsis Action Taken by Nursing 08/11/23 17:30 08/11/23 18:00 08/11/23 18:30 Temperature Temperature Source Pulse Rate Pulse Rate [Apical] 78 83 80 Respiratory Rate 18 20 20 Respiratory Effort / Characteristics Respiratory Depth Blood Pressure Blood Pressure [Right Arm] 97/63 L 103/65 94/54 L Blood Pressure Mean Blood Pressure Mean [Right Arm] 74 77 67 Blood Pressure Position Pulse Oximetry 100 96 92 Oxygen Delivery Method Room Air Room Air Sepsis Recent Fever Within 48 Hours Sepsis New/Unexplained Change in Mental Status Sepsis Action Taken by Nursing 08/11/23 19:00 08/11/23 19:30 08/11/23 20:00 Temperature Temperature Source Pulse Rate Pulse Rate [Apical] 83 69 76 Respiratory Rate 20 20 18 Respiratory Effort / Characteristics Respiratory Depth Blood Pressure Blood Pressure [Right Arm] 96/53 L 90/57 L 90/49 L Blood Pressure Mean Blood Pressure Mean [Right Arm] 67 68 62 Blood Pressure Position Pulse Oximetry 95 95 93 Oxygen Delivery Method Room Air Room Air Sepsis Recent Fever Within 48 Hours Sepsis New/Unexplained Change in Mental Status Sepsis Action Taken by Nursing 08/11/23 20:18 Temperature Temperature Source Pulse Rate 84 Pulse Rate [Apical] Respiratory Rate Respiratory Effort / Characteristics Respiratory Depth Blood Pressure Blood Pressure [Right Arm] Blood Pressure Mean Blood Pressure Mean [Right Arm] Blood Pressure Position Pulse Oximetry Oxygen Delivery Method Sepsis Recent Fever Within 48 Hours Sepsis New/Unexplained Change in Mental Status Sepsis Action Taken by [facility] Medications Current Medication List: was personally reviewed by me Laboratory Data Attestation: I reviewed the patient's lab results. 08/12/23 02:48 04/28/24 02:48 Lab Results 08/11/23 08/11/23 08/11/23 Range/Units 15:27 17:30 17:48 WBC 23.04 H (4.8-10.8) K/ul RBC 4.19 L (4.70-6.10) M/uL Hgb 12.7 L (14.0-18.0) g/dl Hct 39.5 L (42.0-52.0) % MCV 94.3 (80.0-100.0) fL MCH 30.3 (25.0-34.0) pg MCHC 32.2 (32.0-36.0) g/dL RDW Std Deviation 45.0 (36.4-46.3) fL RDW Coeff of Darius 13.1 (11.5-14.5) % Plt Count 173 (130-400) K/uL MPV 12.4 (9.4-12.4) fL Immature Gran % (Auto) 1.3 % Neut % (Auto) 89.7 % Lymph % (Auto) 3.6 % Doddridge % (Auto) 5.2 % Eos % (Auto) 0.0 % Baso % (Auto) 0.2 % Neut # (Auto) 20.68 H (1.40-6.50) K/uL Lymph # (Auto) 0.82 L (1.20-3.40) K/uL Dod[place]idge # (Auto) 1.19 H (0.11-0.59) K/uL Eos # (Auto) 0.00 (0.00-0.50) K/uL Baso # (Auto) 0.04 (0.00-0.20) K/uL Immature Gran # (Auto) 0.31 H (0.01-0.20) K/uL Sodium 131 L (136-145) mmol/L Potassium 4.8 (3.5-5.1) mmol/L Chloride 96 L (98-107) mmol/L Carbon Dioxide 23 (21-32) mmol/L Anion Gap 12 H (3-11) BUN 57 H (6-23) mg/dl Creatinine 4.22 H (0.6-1.4) mg/dl Est Cr Clr Drug Dosing 11.8 ml/min Est GFR ( Amer) 14.0 ml/min Est GFR (Non-Af Amer) 12.1 ml/min BUN/Creatinine Ratio 13.5 (10-20) Glucose 312 H* (70-99(Fasting)) mg/dl Lactate 3.3 H* (0.4-2.0) mmol/L Calcium 9.6 (8.6-10.3) mg/dl Magnesium 1.9 (1.7-2.4) mg/dl Total Bilirubin 1.4 H (0.2-1.0) mg/dl Direct Bilirubin 0.5 H (0-0.2) mg/dl AST 27 (13-39) U/L ALT 17 (7-52) U/L Alkaline Phosphatase 82 (34-104) U/L Troponin I High Sens 250.1 H* 215.9 H* (0-20) pg/ml Total Protein 6.6 (6.0-8.3) gm/dl Albumin 4.1 (3.4-5.0) gm/dl Procalcitonin 0.84 H (0-0.5) ng/ml Urine Color Dark Yellow Urine Appearance Turbid A (Clear) Urine pH 5.0 (4.5-7.5) Ur Specific Effort 1.015 (1.000-1.030) Urine Protein Trace H (Negative) Urine Glucose (UA) Negative (Negative) Urine Ketones Negative (Negative) Urine Blood 1+ H (Negative) Urine Nitrite Negative (Negative) Urine Bilirubin Negative (Negative) Urine Urobilinogen Negative (Negative) Ur Leukocyte Esterase 1+ H (Negative) Urine WBC (Auto) 11-20 H (0-5) /hpf Urine RBC (Auto) 11-20 H (0-2) /hpf U Hyaline Cast (Auto) >20 H (0-2) /lpf U Epithel Cells (Auto) 0-2 (0-2) /hpf Urine Bacteria (Auto) None Seen (None Seen) Uric Acid Crystals Present A (None Prsent) 08/11/23 Range/Units 19:33 WBC (4.8-10.8) K/ul RBC (4.70-6.10) M/uL Hgb (14.0-18.0) g/dl Hct (42.0-52.0) % MCV (80.0-100.0) fL MCH (25.0-34.0) pg MCHC (32.0-36.0) g/dL RDW Std Deviation (36.4-46.3) fL RDW Coeff of Darius (11.5-14.5) % Plt Count (130-400) K/uL MPV (9.4-12.4) fL Immature Gran % (Auto) % Neut % (Auto) % Lymph % (Auto) % Doddridge % (Auto) % Eos % (Auto) % Baso % (Auto) % Neut # (Auto) (1.40-6.50) K/uL Lymph # (Auto) (1.20-3.40) K/uL Dod[place]idge # (Auto) (0.11-0.59) K/uL Eos # (Auto) (0.00-0.50) K/uL Baso # (Auto) (0.00-0.20) K/uL Immature Gran # (Auto) (0.01-0.20) K/uL Sodium (136-145) mmol/L Potassium (3.5-5.1) mmol/L Chloride (98-107) mmol/L Carbon Dioxide (21-32) mmol/L Anion Gap (3-11) BUN (6-23) mg/dl Creatinine (0.6-1.4) mg/dl Est Cr Clr Drug Dosing ml/min Est GFR ( Amer) ml/min Est GFR (Non-Af Amer) ml/min BUN/Creatinine Ratio (10-20) Glucose (70-99(Fasting)) mg/dl Lactate 2.1 H* (0.4-2.0) mmol/L Calcium (8.6-10.3) mg/dl Magnesium (1.7-2.4) mg/dl Total Bilirubin (0.2-1.0) mg/dl Direct Bilirubin (0-0.2) mg/dl AST (13-39) U/L ALT (7-52) U/L Alkaline Phosphatase (34-104) U/L Troponin I High Sens (0-20) pg/ml Total Protein (6.0-8.3) gm/dl Albumin (3.4-5.0) gm/dl Procalcitonin (0-0.5) ng/ml Urine Color Urine Appearance (Clear) Urine pH (4.5-7.5) Ur Specific Effort (1.000-1.030) Urine Protein (Negative) Urine Glucose (UA) (Negative) Urine Ketones (Negative) Urine Blood (Negative) Urine Nitrite (Negative) Urine Bilirubin (Negative) Urine Urobilinogen (Negative) Ur Leukocyte Esterase (Negative) Urine WBC (Auto) (0-5) /hpf Urine RBC (Auto) (0-2) /hpf U Hyaline Cast (Auto) (0-2) /lpf U Epithel Cells (Auto) (0-2) /hpf Urine Bacteria (Auto) (None Seen) Uric Acid Crystals (None Prsent) Administered Medications Aspirin (Aspirin 81 Mg Ectab) 81 mg PO QAM MARITO Stop: 09/11/23 08:59 Last Admin: 08/12/23 07:54 Dose: 81 mg Documented By: OTIS Heparin Sodium (Porcine) (Heparin Sod 5,000 Unit/0.5 Ml Vial) 5,000 units SQ Q12 MARITO Stop: 09/10/23 20:59 Last Admin: 08/12/23 07:54 Dose: 5,000 units Documented By: Admin: 08/11/23 23:04 Dose: 5,000 units Documented By: LEONA Metronidazole (Flagyl) 500 mg in 100 mls @ 100 mls/hr IV Q8H MARITO; Protocol Stop: 08/22/23 03:59 Last Infusion: 08/12/23 05:15 Dose: Infused Documented By: Admin: 08/12/23 04:15 Dose: 100 mls/hr Documented By: TAYLOR Ciprofloxacin (Cipro / D5w) 400 mg in 200 mls @ 100 mls/hr IV Q24H MARITO; Protocol Stop: 08/21/23 20:59 Last Infusion: 08/12/23 00:10 Dose: Infused Documented By: Admin: 08/11/23 22:03 Dose: 100 mls/hr Documented By: ADRIANA Sodium Chloride (Nss) 1,000 mls @ 100 mls/hr IV .Q10H MARITO Stop: 09/10/23 20:56 Last Admin: 08/12/23 07:53 Dose: 100 mls/hr Documented By: Infusion: 08/12/23 07:53 Dose: Infused Documented By: Admin: 08/11/23 22:09 Dose: 100 mls/hr Documented By: ADRIANA Insulin Aspart (Insulin Aspart Per Unit Charge) 0 units SC ACHS MARITO Stop: 09/10/23 20:59 Last Admin: 08/12/23 08:17 Dose: 5 units Documented By: OTIS Co-signed By: DTT Admin: 08/11/23 22:02 Dose: Not Given Documented By: ADRIANA Metoprolol Succinate (Metoprolol Succ 25mg Ext Rel Tab) 25 mg PO BID MARITO Stop: 09/10/23 20:59 Last Admin: 08/12/23 07:54 Dose: 25 mg Documented By: Admin: 08/11/23 21:43 Dose: Not Given Documented By: ADRIANA Vitamin D (Cholecalciferol 25 Mcg (1000 Units) Tab) 25 mcg PO QAM MARITO Stop: 09/11/23 08:59 Last Admin: 08/12/23 07:54 Dose: 25 mcg Documented By: OTIS Discontinued Medications Sodium Chloride (Nss) 1,000 mls @ 999 mls/hr IV .Q1H1M MARITO Stop: 08/11/23 17:15 Last Infusion: 08/11/23 18:59 Dose: Infused Documented By: Admin: 08/11/23 16:52 Dose: 999 mls/hr Documented By: ADRIANA Ceftriaxone Sodium (Rocephin) 2,000 mg in 50 mls @ 100 mls/hr IV NOW STA Stop: 08/11/23 16:31 Last Infusion: 08/11/23 18:21 Dose: Infused Documented By: Admin: 08/11/23 17:38 Dose: 100 mls/hr Documented By: ADRIANA Sodium Chloride (Nss) 500 mls @ 999 mls/hr IV .Q31M ONE Stop: 08/11/23 19:00 Last Infusion: 08/11/23 20:06 Dose: Infused Documented By: Admin: 08/11/23 18:59 Dose: 999 mls/hr Documented By: ADRIANA Sodium Chloride (Nss) 1,000 mls @ 999 mls/hr IV .Q1H1M ONE Stop: 08/11/23 21:05 Last Infusion: 08/11/23 22:11 Dose: Infused Documented By: Admin: 08/11/23 20:13 Dose: 999 mls/hr Documented By: ADRIANA Metronidazole (Flagyl) 500 mg in 100 mls @ 100 mls/hr IV NOW STA; Protocol Stop: 08/11/23 21:04 Last Infusion: 08/11/23 21:39 Dose: Infused Documented By: Admin: 08/11/23 20:12 Dose: 100 mls/hr Documented By: ADRIANA Sodium Chloride (Nss) 1,000 mls @ 100 mls/hr IV .Q10H MARITO Stop: 08/12/23 06:29 Last Admin: 08/11/23 21:36 Dose: Not Given Documented By: ADRIANA Daptomycin 400 mg/ Syringe 8 mls @ 4 mls/min IV ONE ONE; Protocol Stop: 08/11/23 21:01 Last Admin: 08/11/23 21:43 Dose: 4 mls/min Documented By: ADRIANA Ioversol (Optiray 320 100ml) 92 ml IV ONCE ONE Stop: 08/11/23 17:17 Last Admin: 08/11/23 17:17 Dose: 92 ml Documented By: Imaging Data Radiologist's Impression: Chest X-Ray 08/11/23 16:01 XR chest 1V portable CLINICAL HISTORY: Sepsis COMPARISON STUDY: Chest radiograph August 21, 2022. FINDINGS: Low lung volumes are unchanged. Mild cardiomegaly is unchanged. No evidence for pulmonary edema. There is no consolidation to suggest pneumonia. The appearance of the chest is unchanged. IMPRESSION: No acute cardiopulmonary findings. No change in appearance of the chest. ACT 112: Negative or not required by law. Electronically signed by: Alphonso Barron M.D. 08/11/2023 4:[address] 08/11/23 16:03 CT OF THE HEAD WITHOUT CONTRAST CLINICAL HISTORY: fall, [facility] COMPARISON STUDY: Head CT/CTA of the head June 05, 2019. MRI of the brain June 06, 2019. CT DOSE: 625.8 mGy.cm TECHNIQUE: Helical axial images of the head were obtained without IV contrast. Automated exposure control was utilized for the study. A dose lowering technique was utilized adhering to the principles of ALARA. FINDINGS: No acute intracranial hemorrhage, midline shift or mass effect is present. The ventricular system is unremarkable. The basal cisterns are patent. No extra-axial collections are present. There are no findings to suggest acute dural sinus thrombosis or acute territorial infarct. No significant calvarial abnormalities are present. Visualized portions of the sinuses and mastoid air cells are clear. IMPRESSION: 1. No acute intracranial findings. 2. No calvarial fractures. ACT 112: Negative or not required by law. Electronically signed by: Alphonso Barron M.D. 08/11/2023 4:33 PM Abdomen/Pelvis CT 08/11/23 17:04 CT OF THE ABDOMEN AND PELVIS WITHOUT CONTRAST CLINICAL HISTORY: ARF, WBC 20+, recent prostate bx COMPARISON STUDY: CT of the abdomen and pelvis April 26, 2023. Prostate MRI July 12, 2023. TECHNIQUE: Axial images of the abdomen and pelvis were obtained without IV contrast. Images were reviewed in the axial, sagittal, and coronal planes. Automated exposure control was utilized for the study. A dose lowering technique was utilized adhering to the principles of ALARA. FINDINGS: There are small bilateral pleural effusions. Associated subpleural opacities represent atelectasis. No pneumatosis, free air or portal venous gas is present. There is mild body wall edema. Small amount of abdominal ascites. Unenhanced images of the liver, spleen, adrenal glands and pancreas are unremarkable. Small calcified gallstones within the gallbladder are present. There is no evidence for acute cholecystitis. 4 mm right renal calculus. 1.5 cm left upper pole renal lesion was shown to represent a hyperdense cyst on prior CT. No ureteral calculi or hydronephrosis. Prostate is enlarged, measuring 5.4 cm in transverse diameter. Bladder wall thickening with mild adjacent stranding is unchanged since prior CT. Mild rectal wall thickening is noted. Minimal perirectal stranding is present. There is mild presacral edema. Rectosigmoid anastomosis is noted. There is no evidence for a bowel obstruction. No pathologically enlarged lymph nodes are present. There are no suspicious lesions within the visualized skeletal structures. IMPRESSION: 1. 4 mm right renal calculus. No ureteral calculi or hydronephrosis. 2. No bowel obstruction. Mild rectal wall thickening, a nonspecific finding, with minimal adjacent stranding. No extraluminal gas. No fluid collections. 3. Bladder wall thickening with adjacent stranding, similar to prior CT. This is likely chronic although could be correlated with urinalysis. Enlarged prostate. 4. Small bilateral pleural effusions, body wall edema and small amount of abdominal ascites. 5. Cholelithiasis. ACT 112: Negative or not required by law. Electronically signed by: Alphonso Barron M.D. 08/11/2023 6:15 PM Discharge Plan Visit Data Chief Complaint: Fall Stated Complaint: TREMORS, FALLS ED Provider: Morris Rodriguez Discharge Problem: Sepsis, Acute renal failure, Falls, Acute dehydration, Elevated troponin Patient Disposition: Admitted As Inpatient Discharge Instructions Interventions: ED Discharge Assessment Last Done: 08/12/23 02:46 Discharge Problem: Sepsis Qualifiers: Sepsis type: sepsis due to unspecified organism Sepsis acute organ dysfunction status: with acute organ dysfunction Severe sepsis acute organ dysfunction type: acute renal failure Acute renal failure type: unspecified Severe sepsis shock status: unspecified Qualified Code(s): A41.9 - Sepsis, unspecified organism; R65.20 - Severe sepsis without septic shock; N17.9 - Acute kidney failure, unspecified Acute renal failure Qualifiers: Acute renal failure type: unspecified Qualified Code(s): N17.9 - Acute kidney failure, unspecified Falls Qualifiers: Encounter type: initial encounter Qualified Code(s): W19.XXXA - Unspecified fall, initial encounter
--- NOTE | 2023-08-11 16:22 | XRay Report ---
XR chest 1V portable CLINICAL HISTORY: Sepsis COMPARISON STUDY: Chest radiograph August 21, 2022. FINDINGS: Low lung volumes are unchanged. Mild cardiomegaly is unchanged. No evidence for pulmonary e diamond. There is no consolidation to suggest pneumonia. The appearance of the chest is unchanged. IMPRESSION: No acute cardiopulmonary findings. No change in appearance of the chest. ACT 112: Negative or not required by law. Electronically signed by: Alphonso Barron M.D. 08/11/2023 4:21 PM
--- NOTE | 2023-08-11 16:34 | CT Scan Report ---
CT OF THE HEAD WITHOUT CONTRAST CLINICAL HISTORY: fall, [facility] COMPARISON STUDY: Head CT/CTA of the head June 05, 2019. MRI of the brain June 06, 2019. CT DOSE: 625.8 mGy.cm TECHNIQUE: Helical axial images of the head were obtained without IV contrast. Automated exposure con trol was utilized for the study. A dose lowering technique was utilized adhering to the principles o f ALARA. FINDINGS: No acute intracranial hemorrhage, midline shift or mass effect is present. The ventricular system is unremarkable. The basal cisterns are patent. No extra-axial collections are present. There are no findings to suggest acute dural sinus thrombosis or acute territorial infarct. No significant calvarial abnormalities are present. Visualized portions of the sinuses and mastoid air cells are darline ar. IMPRESSION: 1. No acute intracranial findings. 2. No calvarial fractures. ACT 112: Negative or not required by law. Electronically signed by: Alphonso Barron M.D. 08/11/2023 4:33 PM
[2023-08-11 16:38] LABS: Albumin Level 4.1 gm/dl (3.4-5.0); BUN Creatinine Ratio 13.5 (10-20); Bilirubin Direct 0.5 mg/dl (0-0.2); Bilirubin,Total 1.4 mg/dl (0.2-1.0); Calcium 9.6 mg/dl (8.6-10.3); Creatinine Clr Calc Pharmacy 11.8 ml/min; Est GFR (Non-African American) 12.1 ml/min; Magnesium 1.9 mg/dl (1.7-2.4); Potassium 4.8 mmol/L (3.5-5.1); Total Protein 6.6 gm/dl (6.0-8.3)
[2023-08-11 16:44] LABS: Hematocrit (blood only) 39.5 % (42.0-52.0); Hemoglobin 12.7 g/dl (14.0-18.0); Mean Corpuscular Hemoglobin 30.3 pg (25.0-34.0); Mean Corpuscular Hgb Conc 32.2 g/dL (32.0-36.0); Mean Corpuscular Volume 94.3 fL (80.0-100.0); Mean Platelet Volume 12.4 fL (9.4-12.4); Platelet Count 173 K/uL (130-400); RDW Coefficient of Variation 13.1 % (11.5-14.5); Red Blood Count 4.19 M/uL (4.70-6.10); Troponin I High Sensitivity 250.1 pg/ml (0-20); White Blood Count 23.04 K/ul (4.8-10.8)
[2023-08-11] MEDS: SODIUM CHLORIDE 0.9% 1,000 ML IV SCH ×3 (16:52→22:09)
[2023-08-11 17:02] LABS: Basophils # (auto) 0.04 K/uL (0.00-0.20); Basophils % (auto) 0.2 %; Immature Granulocytes # (auto) 0.31 K/uL (0.01-0.20); Immature Granulocytes % (auto) 1.3 %; Lymphocytes # (auto) 0.82 K/uL (1.20-3.40); Lymphocytes % (auto) 3.6 %; Monocytes # (auto) 1.19 K/uL (0.11-0.59); Monocytes % (auto) 5.2 %; Neutrophils # (auto) 20.68 K/uL (1.40-6.50); Neutrophils % (auto) 89.7 %
[2023-08-11] MEDS: OPTIRAY 320 100ml IV ONE (17:17)
[2023-08-11] MEDS: cefTRIAXone SODIUM 2,000 MG/50 ML BAG IV STA (17:38)
[2023-08-11 18:06] LABS: Appearance Urine Turbid (Clear); Bacteria Urine Automated None Seen (None Seen); Bilirubin Urine Negative (Negative); Blood Urine 1+ (Negative); Cast Urine Automated >20 /lpf (0-2); Color Urine Dark Yellow; Epithelial Cell Urine Auto 0-2 /hpf (0-2); Glucose Urine UA Negative (Negative); Ketones Urine Negative (Negative); Leukocyte Esterase Urine 1+ (Negative); Nitrite Urine Negative (Negative); Protein Urine Trace (Negative); Specific Gravity Urine 1.015 (1.000-1.030); Urobilinogen Urine Negative (Negative)
--- NOTE | 2023-08-11 18:13 | History & Physical Report ---
Date of Service August 11, 2023 Assessment & Plan (1) Sepsis: Plan: Present on admission. White blood cell count elevated at 22,000. Recent prostate biopsy. Blood and urine cultures are pending. He received Rocephin in the ED. He will continue with ciprofloxacin 400 mg every 12 hours going forward (2) Acute renal failure: Plan: Acute on chronic kidney disease stage III. Creatinine elevated to 4.2. Renal ultrasound pending along with random urine sodium and random urine creatinine for fractional excretion of sodium calculation. Serial labs. Monitor intake and output (3) Essential hypertension: Plan: Fortunately he has not required pressor support. Lisinopril and hydrochlorothiazide are on hold (4) Chronic atrial fibrillation: Plan: I cannot see where he is on chronic anticoagulation therapy. Continue metoprolol for rate control. Telemetry (5) Elevated troponin: Plan: No chest pain and no acute EKG changes. Serial troponin levels ordered (6) Diabetes mellitus type 2, controlled, without complications: Plan: ADA diet. Sliding scale coverage. Plan To be determined History of Present Illness Chief Complaint: Shaking chills Primary Care Provider: Dinorah Llanes DO 83-year-old white male who underwent prostate biopsy on August 08. Today he developed shaking chills and weakness and came to the ED for evaluation. He appears to be septic with acute renal failure. White count is 22,000 and creatinine has risen to 4.2. Urine and blood cultures have been obtained. He was given Rocephin in the ED but ongoing he will receive ciprofloxacin 400 mg IV every 12 hours. Urology consultation is pending. The pathology report from the prostate biopsy remains pending. He is having some hematuria after the prostate biopsy as expected. He denies shortness of breath or chest pain. Allergies Allergy/AdvReac Type Severity Reaction Status Date / Time meperidine [From Demerol] Allergy Intermediate Vomiting Verified 08/11/23 17:07 oxycodone Allergy Intermediate Hives Verified 08/11/23 17:07 Penicillins Allergy Intermediate Rash Verified 08/11/23 17:07 Home Medications Medication Instructions Recorded Confirmed Type glimepiride 1 mg tablet 1 mg PO HS 02/07/19 08/11/23 History lisinopril 20 1 tab PO QAM 02/07/19 08/11/23 History mg-hydrochlorothiazide 25 mg tablet omeprazole 40 mg capsule,delayed 40 mg PO QAM 02/07/19 08/11/23 History release simvastatin 10 mg tablet 10 mg PO HS 02/07/19 08/11/23 History aspirin 81 mg tablet,delayed 81 mg PO QAM 12/23/21 08/11/23 History release gabapentin 100 mg capsule See Rx Instructions .Route .COMPLEX 12/23/21 08/11/23 History linagliptin 5 mg tablet (Tradjenta) 5 mg PO QAM 12/23/21 08/11/23 History cholecalciferol (vitamin D3) 25 25 mcg PO QAM 02/09/22 08/11/23 History mcg (1,000 unit) chewable tablet (Vitamin D3) zinc acetate 50 mg (zinc) capsule 50 mg PO Q OTHER DAY 02/09/22 08/11/23 History allopurinol 100 mg tablet 200 mg PO QAM 08/21/22 08/11/23 History magnesium oxide 400 mg PO HS 08/21/22 08/11/23 History alfuzosin 10 mg tablet,extended 10 mg PO DAILY #30 tabs 08/09/23 08/11/23 Rx release 24 hr (Uroxatral) metoprolol succinate 25 mg 25 mg PO BID 08/11/23 08/11/23 History tablet,extended release 24 hr Past Med/Surg History Medical History (Updated 08/11/23 @ 18:11 by Freedom Mazariegos MD) Elevated prostate specific antigen (PSA) History of COVID-04 Mar 2020 > not hospitalized > mild loss of smell, fatigue TIA (transient ischemic attack) inconclusive per pt, no specific event Restrictive lung disease Diabetes mellitus, type II CKD (chronic kidney disease), stage III Peyronie's disease Urethral stricture in male Stone in kidney none at present per pt Elevated PSA BPH loc w urin obs/LUTS Hematuria Osteoarthritis Lumbar stenosis Cervical stenosis of spine BPH (benign prostatic hyperplasia) History of ischemic colitis Diabetes mellitus, type 2 Colon cancer 1995--sx Hearing deficit Essential tremor Migraine ocular per pt, gabapentin for this Hyperlipidemia Hypertension Atrial fibrillation metoprolol > follows with Dr. Muñiz Chronic obstructive pulmonary disease inhaler/nebulizer prn Asthma rare inhaler/nebulizer use Surgical History History of ankle fusion right ankle History of carpal tunnel release of both wrists History of repair of right rotator cuff x2 History of arthroscopy of left knee x2 History of prostate surgery greenlight laser History of prostate biopsy benign Hx of vasectomy History of colonoscopy History of esophagogastroduodenoscopy (EGD) History of bowel resection 1995 History of tonsillectomy History of endoscopic sinus surgery History of transesophageal echocardiography (ADALGISA) x2 History of cardioversion Presence of Watchman left atrial appendage [place] [facility] [place] History Brother Family history of diabetes mellitus Mother Family history of diabetes mellitus Father Family history of stomach cancer Grandfather (Paternal) Family history of stomach cancer Other No family history of adverse response to anesthesia Social History Smoking Status: Never smoker Second Hand Exposure: No; Do You Dip or Chew Tobacco: No; Hx Alcohol Use: No Hx Substance Use: No Preferred Language: Arabic Communication Ability: Effective Excavating Machine Operator Required: No Beliefs That Will Affect Care: None Current Living Situation: Spouse Feels Safe at Home: Yes Assistive Devices: Glasses and Walker Review of Systems 2 Review of Systems: Constitutional-shaking chills and intermittent fever. Generalized weakness. s ENT-no blurred vision, no double vision, no epistaxis, no sore throat Respiratory-no cough, no wheezing, no shortness of breath Cardiac-no palpitations, no chest pain, no syncope GI-no nausea, vomiting, diarrhea, melena, hematochezia -no urinary retention, no urinary incontinence, no dysuria, no hematuria Musculoskeletal-no joint pain, no muscle tenderness Skin-no bruising, no rashes, no pruritus Neuro-generalized weakness. No focal deficits Psych-no depression, no anxiety Physical Exam 2 Physical Exam: General-alert and oriented x3, pleasant. Generalized weakness. HEENT-head atraumatic and normocephalic, pupils equal and reactive to light, extraocular muscles intact Neck-no lymphadenopathy or thyromegaly, trachea midline Chest-clear to auscultation. No rales, wheezing or rhonchi Cardiac-regular rate and rhythm, normal S1 and S2 Abdomen-normal bowel sounds, no hepatosplenomegaly Extremities-no cyanosis, clubbing, or edema Neuro-cranial nerves II through XII intact, motor and sensory function within normal limits, strength symmetrical with generalized weakness, no focal deficits Psych-normal affect, normal mood Results & Data Results & Data Vital Signs (Past 12 Hours) Vital Signs Temp Pulse Pulse Resp BP BP Pulse Ox 08/11/23 18:00 83 20 103/65 96 08/11/23 17:30 78 18 97/63 L 100 08/11/23 17:00 81 20 99/66 L 95 08/11/23 16:30 84 18 101/54 L 94 08/11/23 16:16 88 08/11/23 16:11 81 20 94 08/11/23 16:11 81 18 102/58 L 94 08/11/23 15:21 36.8 C 83 18 117/75 97 O2 Del Method 08/11/23 18:00 Room Air 08/11/23 17:30 08/11/23 17:00 Room Air 08/11/23 16:30 Room Air 08/11/23 16:16 08/11/23 16:11 Room Air 08/11/23 16:11 Room Air 08/11/23 15:21 Room Air Laboratory Results 08/11/23 15:27 08/11/23 15:27 Code Status & VTE Plan Code Status Full code PG Care Time/CCT Total # of Minutes Spent Total Time Spent with Patient: Total time spent is greater than 50% in coordination of care (as documented) at patient's floor/unit and/or counseling patient: Coding Level of Care Code 63287 INT INP/OBS CARE 3/75MIN Diagnoses Sepsis A41.9 Acute renal failure N17.9 Essential hypertension I10 Chronic atrial fibrillation I48.20 Elevated troponin R79.89 Diabetes mellitus type 2, controlled, without complications E11.9
--- NOTE | 2023-08-11 18:17 | CT Scan Report ---
CT OF THE ABDOMEN AND PELVIS WITHOUT CONTRAST CLINICAL HISTORY: ARF, WBC 20+, recent prostate bx COMPARISON STUDY: CT of the abdomen and pelvis April 26, 2023. Prostate MRI July 12, 2023. TECHNIQUE: Axial images of the abdomen and pelvis were obtained without IV contrast. Images were revi ewed in the axial, sagittal, and coronal planes. Automated exposure control was utilized for the josé luis dy. A dose lowering technique was utilized adhering to the principles of ALARA. FINDINGS: There are small bilateral pleural effusions. Associated subpleural opacities represent atel ectasis. No pneumatosis, free air or portal venous gas is present. There is mild body wall edema. Sma ll amount of abdominal ascites. Unenhanced images of the liver, spleen, adrenal glands and pancreas a re unremarkable. Small calcified gallstones within the gallbladder are present. There is no evidence for acute cholecystitis. 4 mm right renal calculus. 1.5 cm left upper pole renal lesion was shown to represent a hyperdense cyst on prior CT. No ureteral calculi or hydronephrosis. Prostate is enlarged, measuring 5.4 cm in transverse diameter. Bladder wall thickening with mild adjacent stranding is unc hanged since prior CT. Mild rectal wall thickening is noted. Minimal perirectal stranding is present. There is mild presacral edema. Rectosigmoid anastomosis is noted. There is no evidence for a bowel o bstruction. No pathologically enlarged lymph nodes are present. There are no suspicious lesions withi n the visualized skeletal structures. IMPRESSION: 1. 4 mm right renal calculus. No ureteral calculi or hydronephrosis. 2. No bowel obstruction. Mild rectal wall thickening, a nonspecific finding, with minimal adjacent st randing. No extraluminal gas. No fluid collections. 3. Bladder wall thickening with adjacent stranding, similar to prior CT. This is likely chronic altho ugh could be correlated with urinalysis. Enlarged prostate. 4. Small bilateral pleural effusions, body wall edema and small amount of abdominal ascites. 5. Cholelithiasis. ACT 112: Negative or not required by law. Electronically signed by: Alphonso Barron M.D. 08/11/2023 6:15 PM
[2023-08-11 18:20] LABS: Uric Acid Crystals Urine Present (None Prsent)
[2023-08-11] MEDS: SODIUM CHLORIDE 0.9% 500 ML IV ONE (18:59)
[2023-08-11] MEDS: metroNIDAZOLE 500 MG/100 ML BAG IV STA (20:12)
[2023-08-11] MEDS: SODIUM CHLORIDE 0.9% 1,000 ML IV ONE (20:13)
[2023-08-11] MEDS ORDERED: DEXTROSE 50% 50 ML SYRINGE IV PRN (20:57)
[2023-08-11] MEDS ORDERED: GLUCOSE 10 TAB/TUBE PO PRN (20:57)
[2023-08-11] MEDS ORDERED: GLUCOSE 40% GEL 15 GM TUBE PO PRN (20:57)
[2023-08-11] MEDS ORDERED: CARBOHYDRATES FOR HYPOGLYCEMIA PO PRN (20:57)
[2023-08-11] MEDS ORDERED: ACETAMINOPHEN 325 MG TAB PO PRN (20:57)
[2023-08-11] MEDS ORDERED: NON-FORMULARY MEDICATION (Zinc Acetate 50 mg (zinc) Capsule) PO SCH (20:57)
[2023-08-11] MEDS ORDERED: ONDANSETRON INJ 2 MG/ML 2 ML VIAL IV PRN (20:57)
[2023-08-11] MEDS ORDERED: GLUCAGON FOR INJ 1 MG VIAL SQ PRN (20:57)
[2023-08-11] MEDS: METOPROLOL SUCC 25MG EXT REL TAB PO SCH (21:43)
[2023-08-11] MEDS: DAPTOmycin 400 MG in SYRINGE 0 ML IV ONE (21:43)
[2023-08-11] MEDS: INSULIN ASPART PER UNIT CHARGE SC SCH (22:02)
[2023-08-11] MEDS: CIPROFLOXACIN / D5W 400 MG/200 ML BAG IV SCH (22:03)
--- NOTE | 2023-08-11 22:15 | Ultrasound Report ---
Exam(s): US RENAL EXAM: US Retroperitoneal Limited, Renal CLINICAL HISTORY: Reason for exam: ARF. TECHNIQUE: Real-time limited ultrasound of the retroperitoneum with image documentation. COMPARISON: 09/25/2006. FINDINGS: Limitations: Exam is limited due to gas artifact in the bowel. Right kidney: The right kidney measures 9.9 x 4.9 x 4.7 cm. A small echogenic structure seen in the middle pole of the right kidney measuring 4.8 mm with mild shadowing artifact suggestive of a small stone. No hydronephrosis. Left kidney: The left kidney measures 10.0 x 6.4 x 4.1 cm. No stones. No hydronephrosis. Bladder: The visualized urinary bladder is unremarkable. Bilateral ureteral jets are seen. Free fluid: There is trace amount of perihepatic fluid. IMPRESSION: Possible nonobstructive stone within the right kidney measuring 4.8 mm. Otherwise unremarkable renal ultrasound . Electronically signed by: Meghan Esqueda MD 08/11/23 22:14 PM
[2023-08-11 22:34] LABS: Basophils # (auto) 0.03 K/uL (0.00-0.20); Basophils % (auto) 0.1 %; Hematocrit (blood only) 36.4 % (42.0-52.0); Immature Granulocytes % (auto) 0.9 %; Lymphocytes # (auto) 0.75 K/uL (1.20-3.40); Lymphocytes % (auto) 3.4 %; Mean Corpuscular Hemoglobin 30.9 pg (25.0-34.0); Mean Corpuscular Volume 93.8 fL (80.0-100.0); Monocytes # (auto) 1.39 K/uL (0.11-0.59); Monocytes % (auto) 6.3 %; Neutrophils # (auto) 19.83 K/uL (1.40-6.50); Neutrophils % (auto) 89.3 %; Platelet Count 160 K/uL (130-400); RDW Coefficient of Variation 13.2 % (11.5-14.5); RDW Standard Deviation 44.7 fL (36.4-46.3); Red Blood Count 3.88 M/uL (4.70-6.10)
[2023-08-11 22:44] LABS: Calcium 8.5 mg/dl (8.6-10.3); Creatinine Clr Calc Pharmacy 13.6 ml/min; Est GFR (African American) 16.6 ml/min; Est GFR (Non-African American) 14.3 ml/min; Potassium 4.2 mmol/L (3.5-5.1)
[2023-08-11 22:49] LABS: Creatinine Urine Random 133.7 mg/dl
[2023-08-11 22:53] LABS: Troponin I High Sensitivity 206.6 pg/ml (0-20)
[2023-08-11] MEDS: HEPARIN SOD 5,000 UNIT/0.5 ML VIAL SQ SCH (23:04)
[2023-08-12 03:29] LABS: Hematocrit (blood only) 34.5 % (42.0-52.0); Hemoglobin 11.6 g/dl (14.0-18.0); Mean Corpuscular Hemoglobin 31.2 pg (25.0-34.0); Mean Corpuscular Hgb Conc 33.6 g/dL (32.0-36.0); Mean Corpuscular Volume 92.7 fL (80.0-100.0); Mean Platelet Volume 12.4 fL (9.4-12.4); Platelet Count 158 K/uL (130-400); RDW Coefficient of Variation 13.2 % (11.5-14.5); RDW Standard Deviation 44.7 fL (36.4-46.3); Red Blood Count 3.72 M/uL (4.70-6.10); White Blood Count 21.13 K/ul (4.8-10.8)
[2023-08-12 03:44] LABS: BUN Creatinine Ratio 15.1 (10-20); Calcium 8.1 mg/dl (8.6-10.3); Creatinine Clr Calc Pharmacy 13.1 ml/min; Est GFR (Non-African American) 13.8 ml/min; Potassium 4.6 mmol/L (3.5-5.1)
[2023-08-12 03:57] LABS: Basophils # (auto) 0.03 K/uL (0.00-0.20); Basophils % (auto) 0.1 %; Echinocytes 1+; Immature Granulocytes # (auto) 0.32 K/uL (0.01-0.20); Immature Granulocytes % (auto) 1.5 %; Lymphocytes % (auto) 2.8 %; Monocytes # (auto) 1.14 K/uL (0.11-0.59); Monocytes % (auto) 5.4 %; Neutrophils # (auto) 19.04 K/uL (1.40-6.50); Neutrophils % (auto) 90.2 %; Polychromasia 1+
[2023-08-12] MEDS: metroNIDAZOLE 500 MG/100 ML BAG IV SCH (04:15)
--- NOTE | 2023-08-12 07:51 | Urology Consultation ---
Date of Consultation August 12, 2023 Assessment & Plan (1) Acute prostatitis: (2) Elevated troponin: (3) Chronic atrial fibrillation: (4) Sepsis: (5) Elevated prostate specific antigen (PSA): (6) Urethral stricture in male: (7) BPH loc w urin obs/LUTS: Plan Patient with acute illness, UTI, prostatitis, and infection issues after prostate needle biopsy. Patient is on broad-spectrum antibiotics and being covered with supportive care. Patient has been having some mild hypotension. Most recent came back at 94/59. Current temperature is 36.5. Respirations 18. Pulse 78. Oxygen saturation 93% on room air. Has not had a fever while admitted or seen in the ER. Did have elevated troponins as well as elevated lactate. Had a significant elevation of white count with most recent being 21.13. Creatinine is elevated at 3.78. Patient's PSA had elevated significantly in the winter. Most recent in May was 9.208. Patient had undergone prostate needle biopsy in office due to elevated PSA. Has also had history of hematuria and urethral stricture. Hemoglobin was 11.6. Lactic acid was elevated 2.1. Is undergoing hydration supportive care and antibiotics. Patient had undergone CT examination. This was reviewed interpreted by myself. Patient has small stone on the right does not appear to be obstructing. Had significant inflammatory issues with the rectum, prostate, and bladder. Consistent with recent biopsy and likely development of acute UTI with sepsis. Patient's complicated medical and surgical history was reviewed and summarized above. His previous urologic history is especially history of stricture disease were reviewed. May need to consider catheterization for adequate drainage of bladder. Discussed different options. Is undergoing further cardiac assessment. Has chronic A-fib and did have significant elevation of troponin. Plan continue to monitor. Plan with continued supportive care and monitoring over time. Patient will likely require broad-spectrum antibiotics until cultures are fully available. Will await blood and urine. Patient is dealing with considerable fatigue issues. Has unsteadiness and has had some near episodes of falls. Patient had also had considerable dehydration with poor oral intake when he was feeling ill. Has improved somewhat. Is voiding on his own will plan to continue to monitor this. Continue with supportive care. History of Present Illness Attending Physician: Rosangela Rubio MD History of Present Illness New consultation for patient with UTI/prostatitis, discomfort, and ill feelings. Patient had undergone prostate needle biopsy. Had been on antibiotics. Patient developed sudden onset of pain into groin/perineum going down and radi ating into groin and back in waves comes and goes. Can be severe at times. Discussed and reviewed patient's family history for any history of issues, infections, and disease. Also, discussed patient's medical/surgery history especially related to any history of urinary issues or stone disease. Patient has history of urethral stricture as well as coronary disease. Has previously had hematuria. Had significant elevation of PSA and has undergone prostate needle biopsy. Patient has been on alfuzosin in the past. Had elevated lactate. Troponins were also elevated. Patient was admitted and is undergoing observation with broad spectrum IV antibiotics. Allergies Allergy/AdvReac Type Severity Reaction Status Date / Time meperidine [From Demerol] Allergy Intermediate Vomiting Verified 08/11/23 17:07 oxycodone Allergy Intermediate Hives Verified 08/11/23 17:07 Penicillins Allergy Intermediate Rash Verified 08/11/23 17:07 Home Medications Medication Instructions Recorded Confirmed Type glimepiride 1 mg tablet 1 mg PO HS 02/07/19 08/11/23 History lisinopril 20 1 tab PO QAM 02/07/19 08/11/23 History mg-hydrochlorothiazide 25 mg tablet omeprazole 40 mg capsule,delayed 40 mg PO QAM 02/07/19 08/11/23 History release simvastatin 10 mg tablet 10 mg PO HS 02/07/19 08/11/23 History aspirin 81 mg tablet,delayed 81 mg PO QAM 12/23/21 08/11/23 History release gabapentin 100 mg capsule See Rx Instructions .Route .COMPLEX 12/23/21 08/11/23 History linagliptin 5 mg tablet (Tradjenta) 5 mg PO QAM 12/23/21 08/11/23 History cholecalciferol (vitamin D3) 25 25 mcg PO QAM 02/09/22 08/11/23 History mcg (1,000 unit) chewable tablet (Vitamin D3) zinc acetate 50 mg (zinc) capsule 50 mg PO Q OTHER DAY 02/09/22 08/11/23 History allopurinol 100 mg tablet 200 mg PO QAM 08/21/22 08/11/23 History magnesium oxide 400 mg PO HS 08/21/22 08/11/23 History alfuzosin 10 mg tablet,extended 10 mg PO DAILY #30 tabs 08/09/23 08/11/23 Rx release 24 hr (Uroxatral) metoprolol succinate 25 mg 25 mg PO BID 08/11/23 08/11/23 History tablet,extended release 24 hr Patient History Medical History Elevated prostate specific antigen (PSA) History of COVID-04 Mar 2020 > not hospitalized > mild loss of smell, fatigue TIA (transient ischemic attack) inconclusive per pt, no specific event Restrictive lung disease Diabetes mellitus, type II CKD (chronic kidney disease), stage III Peyronie's disease Urethral stricture in male Stone in kidney none at present per pt Elevated PSA BPH loc w urin obs/LUTS Hematuria Osteoarthritis Lumbar stenosis Cervical stenosis of spine BPH (benign prostatic hyperplasia) History of ischemic colitis Diabetes mellitus, type 2 Colon cancer 1995--sx Hearing deficit Essential tremor Migraine ocular per pt, gabapentin for this Hyperlipidemia Hypertension Atrial fibrillation metoprolol > follows with Dr. Muñiz Chronic obstructive pulmonary disease inhaler/nebulizer prn Asthma rare inhaler/nebulizer use Surgical History History of ankle fusion right ankle History of carpal tunnel release of both wrists History of repair of right rotator cuff x2 History of arthroscopy of left knee x2 History of prostate surgery greenlight laser History of prostate biopsy benign Hx of vasectomy History of colonoscopy History of esophagogastroduodenoscopy (EGD) History of bowel resection 1995 History of tonsillectomy History of endoscopic sinus surgery History of transesophageal echocardiography (ADALGISA) x2 History of cardioversion Presence of Watchman left atrial appendage closure device 09[place]05/2018 @ [facility] [place] History Brother Family history of diabetes mellitus Mother Family history of diabetes mellitus Father Family history of stomach cancer Grandfather (Paternal) Family history of stomach cancer Other No family history of adverse response to anesthesia Social History Smoking Status: Never smoker Second Hand Exposure: No; Do You Dip or Chew Tobacco: No; Tobacco Cessation Education Requested by Patient: No Hx Alcohol Use: Yes Alcohol type: other Hx Substance Use: No Preferred Language: Nepali Communication Ability: Effective Machine Pecan Picker Required: No Beliefs That Will Affect Care: None Current Living Situation: Spouse Other Information That Helps Us Care for You: No Feels Safe at Home: Yes Safety Concerns: Feels Safe At This Time Assistive Devices: Walker Review of Systems Review of Systems: All systems reviewed & are unremarkable except as noted in HPI & below Physical Exam Physical Exam: General: Alert and oriented x 3 in no acute distress. Acutely ill with infection. HEENT: Normocephalic Atraumatic. Inspection normal. Cranial Nerves 2-12 Grossly intact. Nares are clear. Neck is supple. Normal inspection of face. Normal inspection of neck. Neurologic: No deficits on inspection. Baseline for motor function and sensory. Psychologic: Normal affect. Respiratory: Nonlabored. No use of accessory muscles. No tachypnea or dyspnea. Cardiovascular: No tachycardia Skin: [place] and Dry. No rashes or visible lesions. Extremities: Moving without issues. No motor deficits on inspection Lymphatics: No edema Abdomen: Soft Non-distended. No rebound or guarding. Results & Data Vital Signs (Past 12 Hours) Vital Signs Temp Pulse Pulse Pulse Resp BP BP 08/12/23 07:45 36.5 C 78 18 94/59 L 08/12/23 04:26 08/12/23 04:01 88 08/12/23 04:01 36.6 C 85 18 105/60 08/12/23 03:17 36.6 C 69 20 107/54 L 08/12/23 02:46 88 18 102/58 L 08/12/23 02:40 93 H 20 08/12/23 02:30 102 H 19 08/12/23 02:30 102/58 L 08/12/23 02:28 105/64 08/12/23 02:28 98 H 17 08/12/23 02:20 79 24 08/12/23 02:15 75/38 L 08/12/23 02:15 77 21 08/12/23 02:10 83 20 08/12/23 02:00 80/45 L 08/12/23 02:00 90 21 08/12/23 01:50 91 H 19 08/12/23 01:45 78/46 L 08/12/23 01:45 82 20 08/12/23 01:40 85 18 08/12/23 01:30 85/54 L 08/12/23 01:30 82 20 08/12/23 01:20 80 20 08/12/23 01:15 80 20 08/12/23 01:15 78/49 L 08/12/23 01:10 85 22 08/12/23 01:00 84 20 08/12/23 01:00 101/47 L 08/12/23 00:50 82 20 08/12/23 00:45 95 H 18 08/12/23 00:45 93/57 L 08/12/23 00:40 85 20 08/12/23 00:30 79 20 08/12/23 00:30 101/58 L 08/12/23 00:20 80 18 08/12/23 00:15 75/47 L 08/12/23 00:15 90 18 08/12/23 00:13 89 08/12/23 00:10 77 18 08/12/23 00:00 81 20 08/12/23 00:00 75/47 L 08/11/23 23:50 85 20 08/11/23 23:45 84 20 08/11/23 23:45 104/64 08/11/23 23:40 94 H 18 08/11/23 23:30 86/54 L 08/11/23 23:30 85 18 08/11/23 23:20 85 20 08/11/23 23:15 77/47 L 08/11/23 23:15 86 18 08/11/23 23:10 96 H 22 08/11/23 23:02 96/59 L 08/11/23 23:02 92 H 18 08/11/23 23:00 79/51 L 08/11/23 23:00 77 18 08/11/23 22:50 85 20 08/11/23 22:45 80 18 08/11/23 22:45 79/45 L 08/11/23 22:40 80 18 08/11/23 22:30 87/52 L 08/11/23 22:30 94 H 20 08/11/23 22:20 86 20 08/11/23 22:10 84 28 H 08/11/23 22:00 89 18 08/11/23 22:00 110/74 08/11/23 22:00 82 18 08/11/23 21:53 78 08/11/23 21:50 94 H 23 08/11/23 21:46 106/73 08/11/23 21:46 89 28 H 08/11/23 21:40 91 H 24 08/11/23 21:36 106/49 L 08/11/23 21:36 90 23 08/11/23 21:01 85 25 H 08/11/23 21:01 111/54 L 08/11/23 21:00 80 22 08/11/23 21:00 86 18 08/11/23 20:50 81 23 08/11/23 20:45 79 22 08/11/23 20:45 113/65 08/11/23 20:40 85 18 08/11/23 20:30 84 18 08/11/23 20:18 84 08/11/23 20:00 76 18 BP Pulse Ox O2 Del Method 08/12/23 07:45 93 Room Air 08/12/23 04:26 Room Air 08/12/23 04:01 08/12/23 04:01 97 Room Air 08/12/23 03:17 94 Room Air 08/12/23 02:46 90 Room Air 08/12/23 02:40 89 L 08/12/23 02:30 90 08/12/23 02:30 08/12/23 02:28 08/12/23 02:28 89 L 08/12/23 02:20 90 08/12/23 02:15 08/12/23 02:15 08/12/23 02:10 90 08/12/23 02:00 08/12/23 02:00 90 08/12/23 01:50 90 08/12/23 01:45 08/12/23 01:45 89 L 08/12/23 01:40 90 08/12/23 01:30 08/12/23 01:30 90 08/12/23 01:20 89 L 08/12/23 01:15 08/12/23 01:15 08/12/23 01:10 90 08/12/23 01:00 08/12/23 01:00 08/12/23 00:50 90 08/12/23 00:45 90 08/12/23 00:45 08/12/23 00:40 90 08/12/23 00:30 91 08/12/23 00:30 08/12/23 00:20 90 08/12/23 00:15 08/12/23 00:15 91 08/12/23 00:13 08/12/23 00:10 90 08/12/23 00:00 90 08/12/23 00:00 08/11/23 23:50 90 08/11/23 23:45 88 L 08/11/23 23:45 08/11/23 23:40 89 L 08/11/23 23:30 08/11/23 23:30 89 L 08/11/23 23:20 89 L 08/11/23 23:15 08/11/23 23:15 87 L 08/11/23 23:10 89 L 08/11/23 23:02 08/11/23 23:02 91 08/11/23 23:00 08/11/23 23:00 78 L 08/11/23 22:50 08/11/23 22:45 08/11/23 22:45 08/11/23 22:40 08/11/23 22:30 08/11/23 22:30 78 L 08/11/23 22:20 08/11/23 22:10 08/11/23 22:00 08/11/23 22:00 08/11/23 22:00 110/74 94 Room Air 08/11/23 21:53 93 Room Air 08/11/23 21:50 98 08/11/23 21:46 08/11/23 21:46 95 08/11/23 21:40 92 08/11/23 21:36 08/11/23 21:36 91 08/11/23 21:01 92 08/11/23 21:01 08/11/23 21:00 93 08/11/23 21:00 111/54 L 93 08/11/23 20:50 93 08/11/23 20:45 94 08/11/23 20:45 08/11/23 20:40 93 08/11/23 20:30 117/67 94 Room Air 08/11/23 20:18 08/11/23 20:00 90/49 L 93 Room Air PG Care Time/CCT Total # of Minutes Spent Total Time Spent with Patient: Total time spent is greater than 50% in coordination of care (as documented) at patient's floor/unit and/or counseling patient: Coding Level of Care Code 22305 INT INP/OBS CARE MIN Diagnoses Acute prostatitis N41.0 Elevated troponin R79.89 Chronic atrial fibrillation I48.20 Sepsis A41.9 Elevated prostate specific antigen (PSA) R97.20 Urethral stricture in male N35.919 BPH loc w urin obs/LUTS N40.1
[2023-08-12] MEDS: CHOLECALCIFEROL 25 MCG (1000 UNITS) TAB PO SCH (07:54)
[2023-08-12] MEDS: ASPIRIN 81 MG ECTAB PO SCH (07:54)
--- NOTE | 2023-08-12 10:04 | Hospitalist Progress Note ---
Date of Service August 12, 2023 Assessment & Plan (1) Sepsis: Plan: Present on admission. Likely secondary to acute prostatitis/uti Patient recently had a prostate biopsy for elevated PSA. Presented to hospital with chills and rigors and fevers On admission, white blood cell count elevated at 22,000. Received empiric IV ceftriaxone Urine cultures currently growing gram-negative bacilli Broadened to metronidazole, ciprofloxacin and daptomycin Patient likely to need at least 21 days of antibiotics for prostatitis. Transition to p.o. upon discharge (2) Acute renal failure: Plan: Acute on chronic kidney disease stage III. Could be secondary to sepsis and prerenal Consult nephrology Renal ultrasound and CT abdomen pelvis showed possible nonobstructive 4.8 mm stone in the right kidney, urology on consult (3) Essential hypertension: Plan: Fortunately he has not required pressor support. Lisinopril and hydrochlorothiazide are on hold (4) Chronic atrial fibrillation: Plan: Patient has a Watchman device (5) Elevated troponin: Plan: No chest pain and no acute EKG changes. Serial troponin levels ordered (6) Diabetes mellitus type 2, controlled, without complications: Plan: ADA diet. Sliding scale coverage. Plan Continue hospitalization pending clinical improvement. Full code DVT prophylaxis heparin Admission and Anticipated Discharge Date Admission Date: August 11, 2023 Subjective Patient seen and examined today, said he feels a lot better, chills and rigors and fever much improved Review of Systems Review of Systems: All systems reviewed are negative, apart from the ones contained in the history. Physical Exam Physical Exam: The patient is awake, alert and oriented 3, well developed and well nourished, normocephalic and atraumatic, lying in bed and in no acute distress. HEENT--PERRL, EOMI, mucous membranes and oropharynx mildly dry Neck--supple. No JVD. No bruits. Thyroid normal, trachea midline, no adenopathy. Heart--normal S1 and S2. No murmurs, rubs or gallops. Lungs--clear bilaterally, no respiratory distress, no accessory muscle use. Abdomen--normal bowel sounds and soft. Extremities--no cyanosis or clubbing. No edema. Dermatologic--normal skin turgor, normal color, no abnormal lymph nodes, no rash. Neurologic--cranial nerves II through XII grossly intact. Rheumatologic--normal range of motion. Psychiatric--normal affect. Results & Data Results & Data Vital Signs (Past 12 Hours) Vital Signs Temp Pulse Pulse Resp BP BP Pulse Ox 08/12/23 07:45 97.7 F 78 18 94/59 L 93 08/12/23 04:26 08/12/23 04:01 88 08/12/23 04:01 97.9 F 85 18 105/60 97 08/12/23 03:17 97.9 F 69 20 107/54 L 94 08/12/23 02:46 88 18 102/58 L 90 08/12/23 02:40 93 H 20 89 L 08/12/23 02:30 102 H 19 90 08/12/23 02:30 102/58 L 08/12/23 02:28 105/64 08/12/23 02:28 98 H 17 89 L 08/12/23 02:20 79 24 90 08/12/23 02:15 75/38 L 08/12/23 02:15 77 21 08/12/23 02:10 83 20 90 08/12/23 02:00 80/45 L 08/12/23 02:00 90 21 90 08/12/23 01:50 91 H 19 90 08/12/23 01:45 78/46 L 08/12/23 01:45 82 20 89 L 08/12/23 01:40 85 18 90 08/12/23 01:30 85/54 L 08/12/23 01:30 82 20 90 08/12/23 01:20 80 20 89 L 08/12/23 01:15 80 20 08/12/23 01:15 78/49 L 08/12/23 01:10 85 22 90 08/12/23 01:00 84 20 08/12/23 01:00 101/47 L 08/12/23 00:50 82 20 90 08/12/23 00:45 95 H 18 90 08/12/23 00:45 93/57 L 08/12/23 00:40 85 20 90 08/12/23 00:30 79 20 91 08/12/23 00:30 101/58 L 08/12/23 00:20 80 18 90 08/12/23 00:15 75/47 L 08/12/23 00:15 90 18 91 08/12/23 00:13 89 08/12/23 00:10 77 18 90 08/12/23 00:00 81 20 90 08/12/23 00:00 75/47 L 08/11/23 23:50 85 20 90 08/11/23 23:45 84 20 88 L 08/11/23 23:45 104/64 08/11/23 23:40 94 H 18 89 L 08/11/23 23:30 86/54 L 08/11/23 23:30 85 18 89 L 08/11/23 23:20 85 20 89 L 08/11/23 23:15 77/47 L 08/11/23 23:15 86 18 87 L 08/11/23 23:10 96 H 22 89 L 08/11/23 23:02 96/59 L 08/11/23 23:02 92 H 18 91 08/11/23 23:00 79/51 L 08/11/23 23:00 77 18 78 L 08/11/23 22:50 85 20 08/11/23 22:45 80 18 08/11/23 22:45 79/45 L 08/11/23 22:40 80 18 08/11/23 22:30 87/52 L 08/11/23 22:30 94 H 20 78 L 08/11/23 22:20 86 20 08/11/23 22:10 84 28 H O2 Del Method 08/12/23 07:45 Room Air 08/12/23 04:26 Room Air 08/12/23 04:01 08/12/23 04:01 Room Air 08/12/23 03:17 Room Air 08/12/23 02:46 Room Air 08/12/23 02:40 08/12/23 02:30 08/12/23 02:30 08/12/23 02:28 08/12/23 02:28 08/12/23 02:20 08/12/23 02:15 08/12/23 02:15 08/12/23 02:10 08/12/23 02:00 08/12/23 02:00 08/12/23 01:50 08/12/23 01:45 08/12/23 01:45 08/12/23 01:40 08/12/23 01:30 08/12/23 01:30 08/12/23 01:20 08/12/23 01:15 08/12/23 01:15 08/12/23 01:10 08/12/23 01:00 08/12/23 01:00 08/12/23 00:50 08/12/23 00:45 08/12/23 00:45 08/12/23 00:40 08/12/23 00:30 08/12/23 00:30 08/12/23 00:20 08/12/23 00:15 08/12/23 00:15 08/12/23 00:13 08/12/23 00:10 08/12/23 00:00 08/12/23 00:00 08/11/23 23:50 08/11/23 23:45 08/11/23 23:45 08/11/23 23:40 08/11/23 23:30 08/11/23 23:30 08/11/23 23:20 08/11/23 23:15 08/11/23 23:15 08/11/23 23:10 08/11/23 23:02 08/11/23 23:02 08/11/23 23:00 08/11/23 23:00 08/11/23 22:50 08/11/23 22:45 08/11/23 22:45 08/11/23 22:40 08/11/23 22:30 08/11/23 22:30 08/11/23 22:20 08/11/23 22:10 PG Care Time/CCT Total # of Minutes Spent Total Time Spent with Patient: Total time spent is greater than 50% in coordination of care (as documented) at patient's floor/unit and/or counseling patient: Coding Level of Care Code 83066 SUB INP/OBS CARE 2/35MIN Diagnoses Sepsis A41.9 Acute renal failure N17.9 Essential hypertension I10 Chronic atrial fibrillation I48.20 Elevated troponin R79.89 Diabetes mellitus type 2, controlled, without complications E11.9 Time Spent (min) 35
--- NOTE | 2023-08-12 10:47 | Electrocardiogram Report ---
Test Reason : Blood Pressure : / mmHG Vent. Rate : 085 BPM Atrial Rate : 000 BPM P-R Int : 000 ms QRS Dur : 078 ms QT Int : 362 ms P-R-T Axes : 000 014 106 degrees QTc Int : 430 ms Atrial fibrillation Nonspecific ST and T wave abnormality Abnormal ECG When compared with ECG of 21-AUG-2022 16:30, No significant change was found Confirmed by Jorge Luis Weber ([id number]) on 08/12/2023 10:47:08 AM Referred By: Confirmed By:Jorge Luis Weber
--- NOTE | 2023-08-12 10:52 | Electrocardiogram Report ---
Test Reason : Blood Pressure : / mmHG Vent. Rate : 083 BPM Atrial Rate : 078 BPM P-R Int : 000 ms QRS Dur : 080 ms QT Int : 388 ms P-R-T Axes : 000 036 142 degrees QTc Int : 455 ms Atrial fibrillation Low voltage QRS Abnormal ECG When compared with ECG of 11-AUG-2023 15:30, (unconfirmed) No significant change was found Confirmed by Jorge Luis Weber ([id number]) on 08/12/2023 10:52:01 AM Referred By: REFERRED SELF Confirmed By:Jorge Luis Weber
--- NOTE | 2023-08-12 11:35 | Nephrology Consultation ---
Date of Consultation August 12, 2023 Assessment & Plan (1) Acute kidney injury: (2) Acute prostatitis: (3) Falls: (4) Sepsis: Plan 83-year-old gentleman admitted with sepsis and JULIET after recent prostate biopsy on 08/09/23. On admission he was profoundly hypotensive with blood pressure 75/47, leukocytosis, lactic acidosis and JULIET, creatinine was 4.2 with baseline creatinine 1.1-1.3. Started on IV fluid and initially treated empirically with ceftriaxone and changed to ciprofloxacin. Initial urine cultures growing gram- negative bacilli. CT abdomen pelvis with no postrenal obstruction. Kidney function slightly improved with creatinine down to 3.8. Blood pressure still low but slightly improved. Voiding normally. -- Continue IV fluid, encourage increase p.o. intake. Continue current antibiotic pending final culture -- Monitor kidney function closely, hemodynamic support -- Continue to hold lisinopril hydrochlorothiazide while hypotensive and waiting for recovery from recent JULIET -- Dose medications for GFR less than 30 Thank you for allowing me to participate in your patient's care. It was a pleasure to see Mr. Madrid.. History of Present Illness Reason for Consultation: JULIET, Sepsis Attending Physician: Rosangela Rubio MD History of Present Illness Mr. Alcon Madrid is a 83-year-old gentleman admitted with acute kidney injury in the setting of sepsis secondary to prostate case after recent prostate biopsy. Nephrology consult was requested for management of above. EMR records are reviewed in detail during patient's visit. Alcon presented to ER yesterday with generalized weakness, shaking chills and multiple falls at home. He had a prostate biopsy on 08/09/2023. Started feeling unwell with weakness and chills 1 day after the biopsy. On admission he was hypotensive with blood pressure 75/47. Lab was notable for leukocytosis and mild lactic acidosis. Urinalysis showed microscopic hematuria, 2+ bacteria and initial culture showing gram-negative bacilli. Lab was notable for JULIET, creatinine was 4.2, BUN 57 with metabolic acidosis. Sodium was 131. Has b aseline decent kidney function with stage IIIa CKD, baseline creatinine 1.1-1.3 mg/dl. CT abdomen pelvis showed 4 mm right renal stone, no ureteral stone or hydronephrosis. He was started on IV fluid and received IV ceftriaxone empirically. Labs this morning showed kidney function slightly improved, creatinine down to 3.8, sodium 132, bicarb 18. Blood pressure slightly improved to 94/59 this morning. Past medical history significant for hypertension, diabetes type 2, dyslipidemia, gout, history of A-fib and stage IIIa CKD baseline creatinine 1.1- 1.3 mg/dl. Has been on lisinopril/hydrochlorothiazide, currently on hold, allopurinol and glimepiride. Never smoker. No known family history of CKD or ESKD. Reports still feeling poorly although better than admission. Kidney function slightly improved. Blood pressure still low but improved compared to admission. Allergies Allergy/AdvReac Type Severity Reaction Status Date / Time meperidine [From Demerol] Allergy Intermediate Vomiting Verified 08/11/23 17:07 oxycodone Allergy Intermediate Hives Verified 08/11/23 17:07 Penicillins Allergy Intermediate Rash Verified 08/11/23 17:07 Home Medications Medication Instructions Recorded Confirmed Type glimepiride 1 mg tablet 1 mg PO HS 02/07/19 08/11/23 History lisinopril 20 1 tab PO QAM 02/07/19 08/11/23 History mg-hydrochlorothiazide 25 mg tablet omeprazole 40 mg capsule,delayed 40 mg PO QAM 02/07/19 08/11/23 History release simvastatin 10 mg tablet 10 mg PO HS 02/07/19 08/11/23 History aspirin 81 mg tablet,delayed 81 mg PO QAM 12/23/21 08/11/23 History release gabapentin 100 mg capsule See Rx Instructions .Route .COMPLEX 12/23/21 08/11/23 History linagliptin 5 mg tablet (Tradjenta) 5 mg PO QAM 12/23/21 08/11/23 History cholecalciferol (vitamin D3) 25 25 mcg PO QAM 02/09/22 08/11/23 History mcg (1,000 unit) chewable tablet (Vitamin D3) zinc acetate 50 mg (zinc) capsule 50 mg PO Q OTHER DAY 02/09/22 08/11/23 History allopurinol 100 mg tablet 200 mg PO QAM 08/21/22 08/11/23 History magnesium oxide 400 mg PO HS 08/21/22 08/11/23 History alfuzosin 10 mg tablet,extended 10 mg PO DAILY #30 tabs 08/09/23 08/11/23 Rx release 24 hr (Uroxatral) metoprolol succinate 25 mg 25 mg PO BID 08/11/23 08/11/23 History tablet,extended release 24 hr Patient History Medical History (Updated 08/12/23 @ 11:38 by Marilu Freeman MD) Acute kidney injury Elevated prostate specific antigen (PSA) History of COVID-04 Mar 2020 > not hospitalized > mild loss of smell, fatigue TIA (transient ischemic attack) inconclusive per pt, no specific event Restrictive lung disease Diabetes mellitus, type II CKD (chronic kidney disease), stage III Peyronie's disease Urethral stricture in male Stone in kidney none at present per pt Elevated PSA BPH loc w urin obs/LUTS Hematuria Osteoarthritis Lumbar stenosis Cervical stenosis of spine BPH (benign prostatic hyperplasia) History of ischemic colitis Diabetes mellitus, type 2 Colon cancer 1995--sx Hearing deficit Essential tremor Migraine ocular per pt, gabapentin for this Hyperlipidemia Hypertension Atrial fibrillation metoprolol > follows with Dr. Muñiz Chronic obstructive pulmonary disease inhaler/nebulizer prn Asthma rare inhaler/nebulizer use Surgical History History of ankle fusion right ankle History of carpal tunnel release of both wrists History of repair of right rotator cuff x2 History of arthroscopy of left knee x2 History of prostate surgery greenlight laser History of prostate biopsy benign Hx of vasectomy History of colonoscopy History of esophagogastroduodenoscopy (EGD) History of bowel resection 1995 History of tonsillectomy History of endoscopic sinus surgery History of transesophageal echocardiography (ADALGISA) x2 History of cardioversion Presence of Watchman left atrial appendage closure device 09/05/2018 @ [facility] [place] Family History Brother Family history of diabetes mellitus Mother Family history of diabetes mellitus Father Family history of stomach cancer Grandfather (Paternal) Family history of stomach cancer Other No family history of adverse response to anesthesia Social History Smoking Status: Never smoker Second Hand Exposure: No; Do You Dip or Chew Tobacco: No; Tobacco Cessation Education Requested by Patient: No Hx Alcohol Use: Yes Alcohol type: other Hx Substance Use: No Preferred Language: Slovenian Communication Ability: Effective Optometrist President/Practice Owner Required: No Beliefs That Will Affect Care: None Current Living Situation: Spouse Other Information That Helps Us Care for You: No Feels Safe at Home: Yes Safety Concerns: Feels Safe At This Time Assistive Devices: Walker Review of Systems Review of Systems: Detailed review of system was done and pertinent positives and negatives are mentioned above. Physical Exam Constitutional: WD/WN, vitals as above no acute distress Eyes: + anicteric sclerae Neck: normal visual inspection Respiratory: Auscultation: lungs clear to auscultation bilaterally Cardiovascular: Rate/Rhythm: regular rate and regular rhythm Extremities: no edema Gastrointestinal (Abdomen): Inspection/Auscultation: abdomen normal to inspection Musculoskeletal: Extremities: extremities normal to inspection Skin: no rashes, warm and dry Neurologic: no focal motor deficits Psychiatric: Orientation: alert and oriented x 3 Affect: euthymic affect Results & Data Vital Signs (Past 12 Hours) Vital Signs Temp Pulse Pulse Resp BP BP Pulse Ox 08/12/23 07:45 36.5 C 78 18 94/59 L 93 08/12/23 04:26 08/12/23 04:01 88 08/12/23 04:01 36.6 C 85 18 105/60 97 08/12/23 03:17 36.6 C 69 20 107/54 L 94 08/12/23 02:46 88 18 102/58 L 90 08/12/23 02:40 93 H 20 89 L 08/12/23 02:30 102 H 19 90 08/12/23 02:30 102/58 L 08/12/23 02:28 105/64 08/12/23 02:28 98 H 17 89 L 08/12/23 02:20 79 24 90 08/12/23 02:15 75/38 L 08/12/23 02:15 77 21 08/12/23 02:10 83 20 90 08/12/23 02:00 80/45 L 08/12/23 02:00 90 21 90 08/12/23 01:50 91 H 19 90 08/12/23 01:45 78/46 L 08/12/23 01:45 82 20 89 L 08/12/23 01:40 85 18 90 08/12/23 01:30 85/54 L 08/12/23 01:30 82 20 90 08/12/23 01:20 80 20 89 L 08/12/23 01:15 80 20 08/12/23 01:15 78/49 L 08/12/23 01:10 85 22 90 08/12/23 01:00 84 20 08/12/23 01:00 101/47 L 08/12/23 00:50 82 20 90 08/12/23 00:45 95 H 18 90 08/12/23 00:45 93/57 L 08/12/23 00:40 85 20 90 08/12/23 00:30 79 20 91 08/12/23 00:30 101/58 L 08/12/23 00:20 80 18 90 08/12/23 00:15 75/47 L 08/12/23 00:15 90 18 91 08/12/23 00:13 89 08/12/23 00:10 77 18 90 08/12/23 00:00 81 20 90 08/12/23 00:00 75/47 L 08/11/23 23:50 85 20 90 08/11/23 23:45 84 20 88 L 08/11/23 23:45 104/64 08/11/23 23:40 94 H 18 89 L 08/11/23 23:30 86/54 L 08/11/23 23:30 85 18 89 L O2 Del Method 08/12/23 07:45 Room Air 08/12/23 04:26 Room Air 08/12/23 04:01 08/12/23 04:01 Room Air 08/12/23 03:17 Room Air 08/12/23 02:46 Room Air 08/12/23 02:40 08/12/23 02:30 08/12/23 02:30 08/12/23 02:28 08/12/23 02:28 08/12/23 02:20 08/12/23 02:15 08/12/23 02:15 08/12/23 02:10 08/12/23 02:00 08/12/23 02:00 08/12/23 01:50 08/12/23 01:45 08/12/23 01:45 08/12/23 01:40 08/12/23 01:30 08/12/23 01:30 08/12/23 01:20 08/12/23 01:15 08/12/23 01:15 08/12/23 01:10 08/12/23 01:00 08/12/23 01:00 08/12/23 00:50 08/12/23 00:45 08/12/23 00:45 08/12/23 00:40 08/12/23 00:30 08/12/23 00:30 08/12/23 00:20 08/12/23 00:15 08/12/23 00:15 08/12/23 00:13 08/12/23 00:10 08/12/23 00:00 08/12/23 00:00 08/11/23 23:50 08/11/23 23:45 08/11/23 23:45 08/11/23 23:40 08/11/23 23:30 08/11/23 23:30 PG Care Time/CCT Total # of Minutes Spent Total Time Spent with Patient: Total time spent is greater than 50% in coordination of care (as documented) at patient's floor/unit and/or counseling patient: Coding Level of Care Code 90410 INT INP/OBS CARE 3/75MIN Diagnoses Acute kidney injury N17.9 Acute prostatitis N41.0 Falls W19.XXXA Encounter type: initial encounter Sepsis A41.9; R65.20; N17.9 Acute renal failure type: unspecified Sepsis acute organ dysfunction status: with acute organ dysfunction Sepsis type: sepsis due to unspecified organism Severe sepsis acute organ dysfunction type: acute renal failure Severe sepsis shock status: unspecified (3) Falls Encounter type: initial encounter Qualified Code(s): W19.XXXA - Unspecified fall, initial encounter (4) Sepsis Acute renal failure type: unspecified Sepsis acute organ dysfunction status: with acute organ dysfunction Sepsis type: sepsis due to unspecified organism Severe sepsis acute organ dysfunction type: acute renal failure Severe sepsis shock status: unspecified Qualified Code(s): A41.9 - Sepsis, unspecified organism; R65.20 - Severe sepsis without septic shock; N17.9 - Acute kidney failure, unspecified
[2023-08-12] MEDS: MAGNESIUM OXIDE 400 MG TAB PO SCH (20:08)
[2023-08-13 06:43] LABS: Basophils # (auto) 0.05 K/uL (0.00-0.20); Basophils % (auto) 0.3 %; Eosinophils # (auto) 0.02 K/uL (0.00-0.50); Eosinophils % (auto) 0.1 %; Hematocrit (blood only) 34.3 % (42.0-52.0); Hemoglobin 11.2 g/dl (14.0-18.0); Immature Granulocytes # (auto) 0.16 K/uL (0.01-0.20); Immature Granulocytes % (auto) 0.9 %; Lymphocytes # (auto) 0.83 K/uL (1.20-3.40); Lymphocytes % (auto) 4.8 %; Mean Corpuscular Hemoglobin 30.5 pg (25.0-34.0); Mean Corpuscular Hgb Conc 32.7 g/dL (32.0-36.0); Mean Corpuscular Volume 93.5 fL (80.0-100.0); Mean Platelet Volume 11.9 fL (9.4-12.4); Monocytes # (auto) 0.83 K/uL (0.11-0.59); Monocytes % (auto) 4.8 %; Neutrophils # (auto) 15.32 K/uL (1.40-6.50); Neutrophils % (auto) 89.1 %; Platelet Count 161 K/uL (130-400); RDW Coefficient of Variation 13.2 % (11.5-14.5); RDW Standard Deviation 45.5 fL (36.4-46.3); Red Blood Count 3.67 M/uL (4.70-6.10); White Blood Count 17.21 K/ul (4.8-10.8)
[2023-08-13 07:04] LABS: BUN Creatinine Ratio 19.7 (10-20); Calcium 8.3 mg/dl (8.6-10.3); Creatinine Clr Calc Pharmacy 18.6 ml/min; Est GFR (African American) 21.6 ml/min; Est GFR (Non-African American) 18.6 ml/min; Potassium 4.6 mmol/L (3.5-5.1)
[2023-08-13] MEDS: SODIUM CHLORIDE 0.9% 1,000 ML IV SCH (08:21)
--- NOTE | 2023-08-13 09:56 | Nephrology Progress Note ---
Date of Service August 13, 2023 Assessment & Plan (1) Acute kidney injury: (2) Acute prostatitis: (3) Falls: (4) Sepsis: Plan 83-year-old gentleman admitted with sepsis and JULIET after recent prostate biopsy on 08/09/23. On admission he was profoundly hypotensive with blood pressure 75/47, leukocytosis, lactic acidosis and JULIET, creatinine was 4.2 with baseline creatinine 1.1-1.3. Started on IV fluid and initially treated empirically with ceftriaxone and changed to ciprofloxacin. Initial urine cultures growing gram- negative bacilli. CT abdomen pelvis with no postrenal obstruction. Kidney function continues to improve with creatinine down to 3.0. Blood pressure improved. Voiding normally. -- encourage increase p.o. intake, okay to discontinue IV fluid. -- Monitor kidney function closely, expect kidney function to continue to improve. -- Continue to hold lisinopril hydrochlorothiazide while hypotensive and waiting for recovery from recent JULIET -- Dose medications for GFR less than 30 Admission and Anticipated Discharge Date Admission Date: August 11, 2023 Katrina Rondon was seen and evaluated this morning. He reports feeling better today. No fever or chills. Blood pressure well-controlled. Volume status acceptable. Kidney function continues to improve, creatinine down to 3.0, has mild metabolic acidosis. Voiding normally. Review of Systems Review of Systems: Detailed review of system was done and pertinent positives and negatives are mentioned above. Physical Exam Constitutional: WD/WN, vitals as above no acute distress Eyes: + anicteric sclerae Respiratory: Auscultation: lungs clear to auscultation bilaterally Cardiovascular: Rate/Rhythm: regular rate and regular rhythm Extremities: no edema Musculoskeletal: Extremities: extremities normal to inspection Skin: no rashes, warm and dry Neurologic: no focal motor deficits Psychiatric: Orientation: alert and oriented x 3 Affect: euthymic affect Results & Data Vital Signs (Past 12 Hours) Vital Signs Temp Pulse Pulse Resp BP BP Pulse Ox 08/13/23 08:05 36.6 C 84 18 134/71 94 08/13/23 03:00 36.6 C 16 129/75 96 08/12/23 23:00 36.7 C 89 18 159/60 H 94 08/12/23 22:01 76 O2 Del Method 08/13/23 08:05 Room Air 08/13/23 03:00 Room Air 08/12/23 23:00 Room Air 08/12/23 22:01 PG Care Time/CCT Total # of Minutes Spent Total Time Spent with Patient: Total time spent is greater than 50% in coordination of care (as documented) at patient's floor/unit and/or counseling patient: Coding Level of Care Code 29121 SUB INP/OBS CARE 2/35MIN Diagnoses Acute kidney injury N17.9 Acute prostatitis N41.0 Falls W19.XXXA Encounter type: initial encounter Sepsis A41.9; R65.20; N17.9 Acute renal failure type: unspecified Sepsis acute organ dysfunction status: with acute organ dysfunction Sepsis type: sepsis due to unspecified organism Severe sepsis acute organ dysfunction type: acute renal failure Severe sepsis shock status: unspecified (3) Falls Encounter type: initial encounter Qualified Code(s): W19.XXXA - Unspecified fall, initial encounter (4) Sepsis Acute renal failure type: unspecified Sepsis acute organ dysfunction status: with acute organ dysfunction Sepsis type: sepsis due to unspecified organism Severe sepsis acute organ dysfunction type: acute renal failure Severe sepsis shock status: unspecified Qualified Code(s): A41.9 - Sepsis, unspecified organism; R65.20 - Severe sepsis without septic shock; N17.9 - Acute kidney failure, unspecified
[2023-08-13] MEDS: ERTAPENEM SODIUM 500 MG in SYRINGE 0 ML IV SCH (10:24)
--- NOTE | 2023-08-13 11:46 | Hospitalist Progress Note ---
Date of Service August 13, 2023 Assessment & Plan (1) Sepsis: Plan: Present on admission. Now resolved. ESBL E. coli isolated in the urine. Antibiotics have been switched over to ertapenem, day 1. He had a recent prostate biopsy and pathology remains pending (2) Acute renal failure: Plan: Acute on chronic kidney disease stage III. Creatinine was 4.2 on admission and has improved to 2.9. Continue IV fluids. Serial labs. Monitor intake and output. Appreciate nephrology consultation and recommendations. (3) Essential hypertension: Plan: Hypotensive on admission which responded to IV fluids. Fortunately he did not require pressor support. Lisinopril and hydrochlorothiazide are on hold (4) Chronic atrial fibrillation: Plan: Rate controlled. He is not on systemic anticoagulation since he has a Watchman device. Telemetry (5) Elevated troponin: Plan: No chest pain and no acute EKG changes. No evidence of acute coronary syndrome (6) Diabetes mellitus type 2, controlled, without complications: Plan: ADA diet. Sliding scale coverage. Plan Hopeful discharge to home on an oral antibiotic on August 14 Admission and Anticipated Discharge Date Admission Date: August 11, 2023 Subjective Alert and oriented. No distress. ESBL E. coli was isolated in the urine. Antibiotics have been switched to ertapenem, day 1. Creatinine improved to 2.9 with IV fluids. Creatinine 4.2 on admission. Appreciate nephrology consultation and recommendations. Will continue IV fluids for now. Monitor intake and output and monitor daily labs. Hopefully he can go home later this week, possibly August 14 Review of Systems 2 Review of Systems: Constitutional-no fever or chills ENT-no blurred vision, no double vision, no epistaxis, no sore throat Respiratory-no cough, no wheezing, no shortness of breath Cardiac-no palpitations, no chest pain, no syncope GI-no nausea, vomiting, diarrhea, melena, hematochezia -no urinary retention, no urinary incontinence, no dysuria, no hematuria Musculoskeletal-no joint pain, no muscle tenderness Skin-no bruising, no rashes, no pruritus Neuro-no isolated weakness, no paresthesia, no weakness Psych-no depression, no anxiety Physical Exam 2 Physical Exam: General-alert and oriented x3, no fever, no chills HEENT-head atraumatic and normocephalic, pupils equal and reactive to light, extraocular muscles intact Neck-no lymphadenopathy or thyromegaly, trachea midline Chest-clear to auscultation. No rales, wheezing or rhonchi Cardiac-regular rate and rhythm, normal S1 and S2 Abdomen-normal bowel sounds, no hepatosplenomegaly Extremities-no cyanosis, clubbing, or edema Neuro-cranial nerves II through XII intact, motor and sensory function within normal limits, strength symmetrical, no focal deficits Psych-normal affect, normal mood Results & Data Results & Data Vital Signs (Past 12 Hours) Vital Signs Temp Pulse Resp BP Pulse Ox O2 Del Method 08/13/23 08:05 36.6 C 84 18 134/71 94 Room Air 08/13/23 03:00 36.6 C 16 129/75 96 Room Air Laboratory Results 08/13/23 06:15 08/13/23 06:15 PG Care Time/CCT Total # of Minutes Spent Total Time Spent with Patient: Total time spent is greater than 50% in coordination of care (as documented) at patient's floor/unit and/or counseling patient: Coding Level of Care Code 82398 SUB INP/OBS CARE 3/50MIN Diagnoses Sepsis A41.9; R65.20; N17.9 Acute renal failure type: unspecified Sepsis acute organ dysfunction status: with acute organ dysfunction Sepsis type: sepsis due to unspecified organism Severe sepsis acute organ dysfunction type: acute renal failure Severe sepsis shock status: unspecified Acute renal failure N17.9 Acute renal failure type: unspecified Essential hypertension I10 Chronic atrial fibrillation I48.20 Elevated troponin R79.89 Diabetes mellitus type 2, controlled, without complications E11.9 (1) Sepsis Acute renal failure type: unspecified Sepsis acute organ dysfunction status: with acute organ dysfunction Sepsis type: sepsis due to unspecified organism S evere sepsis acute organ dysfunction type: acute renal failure Severe sepsis shock status: unspecified Qualified Code(s): A41.9 - Sepsis, unspecified organism; R65.20 - Severe sepsis without septic shock; N17.9 - Acute kidney failure, unspecified (2) Acute renal failure Acute renal failure type: unspecified Qualified Code(s): N17.9 - Acute kidney failure, unspecified
--- NOTE | 2023-08-13 13:23 | Urology Progress Note ---
Date of Service August 13, 2023 Assessment & Plan (1) Acute prostatitis: (2) Acute renal failure: Plan 83yo/M who is s/p prostate needle biopsy on 08/09/23 admitted with UTI/prostatitis and JULIET. Afebrile and hemodynamically stable at present. Labs today- WBC downtrending to 17.21; Creatinine improved to 2.95 (3.78 yesterday). Continue to trend. Urine culture grew E. coli ESBL. Antibiotics changed to ertapenem. Blood culture prelim no growth x 24 hours. Voiding spontaneously, continue to monitor. Prior bladder scan was acceptable. Recommend monitoring PVRs to ensure he is emptying. If any signs of urinary retention, would recommend Coleman catheter placement. Continue supportive care and antibiotic therapy. Prostate biopsy pathology pending. Patient has follow-up with Dr. Conner on 08/16/23 for path review. No acute urological intervention warranted. Urology will follow along. Plan reviewed with Dr. Oconnell. Admission and Anticipated Discharge Date Admission Date: August 11, 2023 Subjective Patient examined at bedside this AM. Awake, sitting in bedside chair on arrival. No acute distress. Denies f/c/n/v. Voiding spontaneously. Denies hematuria or dysuria. Reports some urinary frequency but feels he is emptying his bladder well. No complaints of pain at present. PT/OT eval pending. Review of Systems Constitutional: as per Subjective / HPI Gastrointestinal: as per Subjective / HPI Genitourinary: + as per Subjective / HPI Physical Exam Constitutional: no acute distress Respiratory: no respiratory distress and no labored breathing Neurologic: awake Psychiatric: A+Ox3, euthymic affect Genitourinary: Clear yellow urine in urinal Results & Data Vital Signs (Past 12 Hours) Vital Signs Temp Pulse Resp BP Pulse Ox O2 Del Method 08/13/23 12:15 36.7 C 73 20 103/68 94 Room Air 08/13/23 08:05 36.6 C 84 18 134/71 94 Room Air 08/13/23 03:00 36.6 C 16 129/75 96 Room Air PG Care Time/CCT Total # of Minutes Spent Total Time Spent with Patient: Total time spent is greater than 50% in coordination of care (as documented) at patient's floor/unit and/or counseling patient: Coding Level of Care Code 54102 SUB INP/OBS CARE 2/35MIN Diagnoses Acute prostatitis N41.0 Acute renal failure N17.9 Acute renal failure type: unspecified (2) Acute renal failure Acute renal failure type: unspecified Qualified Code(s): N17.9 - Acute kidney failure, unspecified
[2023-08-13] MEDS ORDERED: DAPTOmycin 400 MG in SYRINGE 0 ML IV SCH (21:00)
[2023-08-14 06:26] LABS: Basophils # (auto) 0.04 K/uL (0.00-0.20); Basophils % (auto) 0.3 %; Eosinophils # (auto) 0.06 K/uL (0.00-0.50); Eosinophils % (auto) 0.5 %; Hematocrit (blood only) 36.1 % (42.0-52.0); Hemoglobin 12.1 g/dl (14.0-18.0); Immature Granulocytes # (auto) 0.15 K/uL (0.01-0.20); Immature Granulocytes % (auto) 1.2 %; Lymphocytes # (auto) 0.97 K/uL (1.20-3.40); Lymphocytes % (auto) 7.8 %; Mean Corpuscular Hemoglobin 30.9 pg (25.0-34.0); Mean Corpuscular Hgb Conc 33.5 g/dL (32.0-36.0); Mean Corpuscular Volume 92.3 fL (80.0-100.0); Monocytes # (auto) 0.66 K/uL (0.11-0.59); Monocytes % (auto) 5.3 %; Neutrophils # (auto) 10.56 K/uL (1.40-6.50); Neutrophils % (auto) 84.9 %; Platelet Count 190 K/uL (130-400); RDW Coefficient of Variation 13.3 % (11.5-14.5); RDW Standard Deviation 44.9 fL (36.4-46.3); Red Blood Count 3.91 M/uL (4.70-6.10); White Blood Count 12.44 K/ul (4.8-10.8)
[2023-08-14 06:51] LABS: BUN Creatinine Ratio 27.7 (10-20); Calcium 8.5 mg/dl (8.6-10.3); Creatinine Clr Calc Pharmacy 29.8 ml/min; Est GFR (African American) 38.2 ml/min; Est GFR (Non-African American) 32.9 ml/min; Potassium 4.6 mmol/L (3.5-5.1)
--- NOTE | 2023-08-14 08:07 | Urology Progress Note ---
Date of Service August 14, 2023 Assessment & Plan (1) Acute prostatitis: (2) Acute renal failure: Plan 83yo/M who is s/p prostate needle biopsy on 08/09/23 admitted with UTI/prostatitis and JULIET. Afebrile and hemodynamically stable at present. Labs today- WBC downtrending to 12.44 today; Creatinine improved to 1.84 (2.95 yesterday). Continue to trend. Urine culture grew E. coli ESBL. Antibiotics changed to ertapenem. Blood culture prelim no growth x 48 hours. Voiding spontaneously, reports urinary frequency. Continue to monitor. Prior bladder scan was acceptable. Recommend monitoring PVRs to ensure he is emptying. If any signs of urinary retention, would recommend Coleman catheter placement. Can consider addition of tamsulosin for frequency, however will defer to primary team given comorbidities. Continue supportive care and antibiotic therapy. Patient has follow-up with Dr. Conner on 08/16/23 for prostate biopsy pathology review. Urology will follow peripherally. Please call with any further questions, concerns, or changes in patient status. Admission and Anticipated Discharge Date Admission Date: August 11, 2023 Subjective Patient seen at bedside. No acute distress. Denies fever, chills, nausea, vomiting. Reports some urinary frequency. Feels he is emptying well. Denies hematuria or dysuria. No reported pain. Review of Systems Constitutional: as per Subjective / HPI Gastrointestinal: as per Subjective / HPI Genitourinary: + as per Subjective / HPI Physical Exam Constitutional: no acute distress Respiratory: no respiratory distress and no labored breathing Neurologic: awake Psychiatric: A+Ox3, euthymic affect Genitourinary: Clear yellow urine in urinal Results & Data Vital Signs (Past 12 Hours) Vital Signs Temp Pulse Resp BP Pulse Ox O2 Del Method 08/14/23 02:58 36.6 C 82 18 130/81 93 Room Air 08/13/23 22:53 36.5 C 81 18 139/81 93 Room Air PG Care Time/CCT Total # of Minutes Spent Total Time Spent with Patient: Total time spent is greater than 50% in coordination of care (as documented) at patient's floor/unit and/or counseling patient: Coding Level of Care Code 21437 SUB INP/OBS CARE 2/35MIN Diagnoses Acute prostatitis N41.0 Acute renal failure N17.9 Acute renal failure type: unspecified (2) Acute renal failure Acute renal failure type: unspecified Qualified Code(s): N17.9 - Acute kidney failure, unspecified
[2023-08-14] MEDS ORDERED: ALBUMIN 25% 25 GM/100 ML VIAL IV SCH (08:45)
--- NOTE | 2023-08-14 10:49 | Nephrology Progress Note ---
Date of Service August 14, 2023 Assessment & Plan (1) Acute kidney injury: (2) Acute prostatitis: (3) Falls: (4) Sepsis: Plan 83-year-old gentleman admitted with sepsis and JULIET after recent prostate biopsy on 08/09/23. On admission he was profoundly hypotensive with blood pressure 75/47, leukocytosis, lactic acidosis and JULIET, creatinine was 4.2 with baseline creatinine 1.1-1.3. Started on IV fluid and initially treated empirically with ceftriaxone and changed to ciprofloxacin. Initial urine cultures growing gram- negative bacilli. CT abdomen pelvis with no postrenal obstruction. Kidney function continues to improve with creatinine down to 1.8, electrolyte acceptable.. Blood pressure improved. Voiding normally. Getting volume overloaded with lower extremity edema and mild respiratory distress. --Discontinue IV fluid, Lasix 40 mg IV x 1 dose, encourage increase p.o. intake. -- Monitor kidney function closely, expect kidney function to continue to improve. -- Continue to hold lisinopril hydrochlorothiazide while waiting for recovery from recent JULIET -- Dose medications for GFR less than 30 Admission and Anticipated Discharge Date Admission Date: August 11, 2023 Katrina Rondon was seen and evaluated this morning. He reports getting slightly short of breath with minimal exertion. Has been having decent urine output. Noted to have lower extremity edema. Kidney function improved, creatinine down to 1.8, electrolyte acceptable. Review of Systems Review of Systems: Detailed review of system was otherwise unremarkable except mentioned above. Physical Exam Constitutional: WD/WN, vitals as above Eyes: + anicteric sclerae Respiratory: + respiratory distress Auscultation: + diminished lung sounds Cardiovascular: Rate/Rhythm: regular rate and regular rhythm Extremities: + edema Musculoskeletal: Extremities: extremities normal to inspection Skin: no rashes, warm and dry Neurologic: no focal motor deficits Psychiatric: Orientation: alert and oriented x 3 Affect: euthymic affect Results & Data Vital Signs (Past 12 Hours) Vital Signs Temp Pulse Resp BP Pulse Ox O2 Del Method 08/14/23 08:24 36.8 C 85 20 126/74 94 Room Air 08/14/23 08:00 Room Air 08/14/23 02:58 36.6 C 82 18 130/81 93 Room Air 08/13/23 22:53 36.5 C 81 18 139/81 93 Room Air PG Care Time/CCT Total # of Minutes Spent Total Time Spent with Patient: Total time spent is greater than 50% in coordination of care (as documented) at patient's floor/unit and/or counseling patient: Coding Level of Care Code 91028 SUB INP/OBS CARE 2/35MIN Diagnoses Acute kidney injury N17.9 Acute prostatitis N41.0 Falls W19.XXXA Encounter type: initial encounter Sepsis A41.9; R65.20; N17.9 Acute renal failure type: unspecified Sepsis acute organ dysfunction status: with acute organ dysfunction Sepsis type: sepsis due to unspecified organism Severe sepsis acute organ dysfunction type: acute renal failure Severe sepsis shock status: unspecified (3) Falls Encounter type: initial encounter Qualified Code(s): W19.XXXA - Unspecified fall, initial encounter (4) Sepsis Acute renal failure type: unspecified Sepsis acute organ dysfunction status: with acute organ dysfunction Sepsis type: sepsis due to unspecified organism Severe sepsis acute organ dysfunction type: acute renal failure Severe sepsis shock status: unspecified Qualified Code(s): A41.9 - Sepsis, unspecified organism; R65.20 - Severe sepsis without septic shock; N17.9 - Acute kidney failure, unspecified
[2023-08-14] MEDS: FUROSEMIDE 40 MG/4 ML VIAL IV ONE (11:32)
--- NOTE | 2023-08-14 12:23 | Discharge Summary ---
Date of Service August 14, 2023 Admission HPI Per Admitting Provider 83-year-old white male who underwent prostate biopsy on August 08. Today he developed shaking chills and weakness and came to the ED for evaluation. He appears to be septic with acute renal failure. White count is 22,000 and creatinine has risen to 4.2. Urine and blood cultures have been obtained. He was given Rocephin in the ED but ongoing he will receive ciprofloxacin 400 mg IV every 12 hours. Urology consultation is pending. The pathology report from the prostate biopsy remains pending. He is having some hematuria after the prostate biopsy as expected. He denies shortness of breath or chest pain. Principal Diagnosis Sepsis, ESBL E. coli UTI, suspected prostatitis after biopsy, acute on chronic kidney disease stage III Discharge Exam General-alert and oriented x3, no fever, no chills HEENT-head atraumatic and normocephalic, pupils equal and reactive to light, extraocular muscles intact Neck-no lymphadenopathy or thyromegaly, trachea midline Chest-clear to auscultation. No rales, wheezing or rhonchi Cardiac-regular rate and rhythm, normal S1 and S2 Abdomen-normal bowel sounds, no hepatosplenomegaly Extremities-no cyanosis, clubbing, or edema Neuro-cranial nerves II through XII intact, motor and sensory function within normal limits, strength symmetrical, no focal deficits Psych-normal affect, normal mood Discharge Data Allergies Allergy/AdvReac Type Severity Reaction Status Date / Time meperidine [From Demerol] Allergy Intermediate Vomiting Verified 08/11/23 17:07 oxycodone Allergy Intermediate Hives Verified 08/11/23 17:07 Penicillins Allergy Intermediate Rash Verified 08/11/23 17:07 Consultations 08/11/23 17:24 ED Decision to Admit Stat 08/11/23 20:57 Consult Urology Routine 08/12/23 10:05 Consult Nephrology Routine Ordered Studies 08/11/23 16:03 CT head/brain wo con Stat 08/11/23 17:04 CT abd pelvis wo con Stat 08/11/23 20:57 US Renal Bladder [US renal/blad retro comp] Urgent Hospital Course (1) Sepsis: Present on admission. Now resolved. ESBL E. coli isolated in the urine. Antibiotics have been switched over to ertapenem, day 2. He had a recent prostate biopsy and pathology remains pending. He will be discharged home on nitrofurantoin based on sensitivities (2) Acute renal failure: Acute on chronic kidney disease stage III. Creatinine was 4.2 on admission and has improved to 1.8 with IV fluids. Anticipate eventual return to baseline. Lungs are clear with no evidence of fluid overload. Parenteral Lasix is not indicated at this time. Appreciate nephrology consultation and recommendations. (3) Essential hypertension: Hypotensive on admission which responded to IV fluids. Fortunately he did not require pressor support. Lisinopril and hydrochlorothiazide are on hold. These can be restarted at discharge (4) Chronic atrial fibrillation: Rate controlled. He is not on systemic anticoagulation since he has a Watchman device. Telemetry (5) Elevated troponin: No chest pain and no acute EKG changes. No evidence of acute coronary syndrome (6) Diabetes mellitus type 2, controlled, without complications: ADA diet. Sliding scale coverage. Plan Home today, August 13, on nitrofurantoin per ESBL E. coli sensitivities. He will follow-up with urology, Dr. Osvaldo Mendez, on August 15 at which time the pathology report from the recent prostate biopsy will be reviewed. Total Time Total Time Spent Total Time Spent (In Minutes): 45 minutes Discharge Plan Discharge Items Patient Disposition: Home - Self-Care Reason For Visit: SEPSIS, ARF, HYPOTENSION Discharge Diagnosis: Sepsis, ESBL E. coli UTI with suspected prostatitis, acute on chronic kidney disease, stage III Activity: Resume your previous activity Non-emergency contact: Primary Care Provider Call non-emergency contact if: you have any medication questions and your symptoms worsen Follow-up/Referrals: Dinorah Llanes DO [Primary Care Provider] - Diet: Carb Consistent or DM2 and Heart Healthy Addtl Attending Provider Instructions: Take Macrobid 100 mg twice a day for 1 more week. Follow-up with urology, Dr. Conner, on August 15 as scheduled. The pathology report from the recent prostate biopsy will be reviewed at that time resume your usual diabetes medications which can be further discussed with your PCP. Pending Studies at Discharge: Yes Studies:: Pathology report from recent prostate biopsy Stand-Alone Forms: [employer], Smoking Cessation Medications and DC Order Prescriptions: New nitrofurantoin monohyd/m-cryst [Macrobid] 100 mg capsule 100 mg PO BID Qty: 20 0RF Rx Instructions: must administer with a meal/food Continued alfuzosin [Uroxatral] 10 mg tablet extended release 24 hr 10 mg PO DAILY Qty: 30 1RF Rx Instructions: PER PT "ONLY TOOK 1 DOSE, THEN STOPPED, MADE ME FEEL WEIRD" administer after the same meal each day simvastatin 10 mg Tablet 10 mg PO HS omeprazole 40 mg Capsule,Delayed Release(Dr/Ec) 40 mg PO QAM glimepiride 1 mg Tablet 1 mg PO HS lisinopril-hydrochlorothiazide 20-25 mg Tablet 1 tab PO QAM aspirin 81 mg Tablet,Delayed Release (Dr/Ec) 81 mg PO QAM gabapentin 100 mg capsule See Rx Instructions .ROUTE .COMPLEX Rx Instructions: TAKES 100 MG QAM & QDD, THEN 200 MG AT HS. Tradjenta 5 mg tablet 5 mg PO QAM zinc acetate 50 mg (zinc) Capsule 50 mg PO Q OTHER DAY cholecalciferol (vitamin D3) [Vitamin D3] 25 mcg (1,000 unit) Tablet,Chewable 25 mcg PO QAM allopurinol 100 mg Tablet 200 mg PO QAM magnesium oxide 400 mg magnesium Tablet 400 mg PO HS metoprolol succinate 25 mg tablet extended release 24 hr 25 mg PO BID Discharge Orders: Discharge Order (Routine); Ordered 08/14/23 Ordered By: Freedom Mazariegos Admission Data Admit Date/Time: 08/11/23 20:25 Attending Provider: Freedom Mazariegos Admit Provider: Tyree Blackman Primary Care Provider: Dinorah Llanes Other Providers: Freedom Mazariegos; Hossein Blank; Alan Conner; Graham Bone; Zamzam Payne; Chris Oconnell; Janel Ramirez Melissa A.; Pete Marr; Leona Allen; Stanton Jin; Saran Bo; Moises Harris; Marilu Freeman Coding Level of Care Code 69731 INP/OBS DISCH >30 MIN Diagnoses Sepsis A41.9; R65.20; N17.9 Acute renal failure type: unspecified Sepsis acute organ dysfunction status: with acute organ dysfunction Sepsis type: sepsis due to unspecified organism Severe sepsis acute organ dysfunction type: acute renal failure Severe sepsis shock status: unspecified Acute renal failure N17.9 Acute renal failure type: unspecified Essential hypertension I10 Chronic atrial fibrillation I48.20 Elevated troponin R79.89 Diabetes mellitus type 2, controlled, without complications E11.9
== END 2023-08-14 14:53 | disposition home health service (06) | DRG 862 ==
LOC: ED 15:13 → EDINP 17:58 → SUATTDRO 20:25 → 2W 08-12 02:46 → 4W 08-12 03:42
DX: N17.9 Acute kidney failure, unspecified; I48.20 Chronic atrial fibrillation, unspecified; E78.5 Hyperlipidemia, unspecified; E87.20 Acidosis, unspecified; N39.0 Urinary tract infection, site not specified; Z88.0 Allergy status to penicillin; E11.22 Type 2 diabetes mellitus with diabetic chronic kidney disease; R65.20 Severe sepsis without septic shock; Z79.899 Other long term (current) drug therapy; R77.8 Other specified abnormalities of plasma proteins; Z79.82 Long term (current) use of aspirin; Z86.16 Personal history of COVID-19; N40.1 Benign prostatic hyperplasia with lower urinary tract symptoms; N41.0 Acute prostatitis; I12.9 Hypertensive chronic kidney disease with stage 1 through stage 4 chronic kidney disease, or unspecified chronic kidney disease; T81.44XA Sepsis following a procedure, initial encounter; N18.31 Chronic kidney disease, stage 3a; Z79.84 Long term (current) use of oral hypoglycemic drugs; A41.9 Sepsis, unspecified organism; E86.0 Dehydration; B96.20 Unspecified Escherichia coli [E. coli] as the cause of diseases classified elsewhere; Z16.12 Extended spectrum beta lactamase (ESBL) resistance; Z86.73 Personal history of transient ischemic attack (TIA), and cerebral infarction without residual deficits; N13.8 Other obstructive and reflux uropathy; Z88.5 Allergy status to narcotic agent; J44.9 Chronic obstructive pulmonary disease, unspecified